=== PATIENT | male | born 1950 | race Caucasian/White ===

== ENCOUNTER → 2018-01-30 | Outpatient (CLI) | payer MEDICARE, OTHER ==
[~2018-01-30] MED LIST: ANDROGEL TOP; ASPI-1441 PO; ASPI-715 PO; ATOR10TA24 PO; CALC-1033 PO; CALCIUM PO; CHOL10005 PO; FAM20 PO; GLUC-304 PO; GLUCOSAMINE PO; GUAI600T57 PO; IBU600 PO; LEV500 PO; LOR5/325 PO; MECL-111 PO; MELA1TAB9 PO; MELA3TAB31 PO; MULT1CAP59 PO; OMEG10007 PO; OMEP-218 PO; OMEPRAZOLE PO; PHENA200 PO; POTA99TA6 PO; TEST2.5G6 TD; TUMS PO; VITAMIN C PO; VITAMIN E PO; [UNRECOGNIZED DRUG - OTHER] PO
[2018-01-30 09:48] LABS: INR 1.02
--- NOTE | 2018-01-31 14:35 | RADIOLOGY IMAGING REPORT ---
FACILITY: [facility] PATIENT NAME: ORION FARNSWORTH : [id number] MR: [id number] V: [id number] EXAM DATE: [id number] ORDERING PHYSICIAN: BULL BURRIS TECHNOLOGIST: Louisa Marino PROCEDURE:US LEFT BREAST COMPLETE COMPARISON:None. INDICATIONS:LEFT BREAST LUMP FINDINGS: In the approximate 3 o'clock position of the Left breast there is a large irregular spiculated hypoechoic mass measuring approximately 2.9 x 3 x 2.1cm with acoustic shadowing. This mass is extremely concerning for malignancy. In the Left axilla there are fatty replacements, node and additional abnormal appearing lymph node lacking a fatty hilum and measures 1.3 x 1.4 x 0.9cm. DIAGNOSTIC CATEGORY 5--HIGHLY SUGGESTIVE OF MALIGNANCY. RECOMMENDATIONS: ULTRASOUND-GUIDED CORE BIOPSY: LEFT BREAST. IMPRESSION: BIRADS 5: Highly suggestive of malignancy Ultrasound guided core biopsy will be performed today of the large heterogeneous spiculated mass 3 o'clock position Left breast and the abnormal appearing Left axillary lymph node will also be sampled at that time. Dictated by: Kate Figueroa M.D. on 01/30/2018 at 17:00 Transcribed by: JOLLY on 01/31/2018 at 8:54 Approved by: Kate Figueroa M.D. on 01/31/2018 at 14:33 [facility]
--- NOTE | 2018-01-31 14:35 | RADIOLOGY IMAGING REPORT ---
FACILITY: [facility] PATIENT NAME: ORION FARNSWORTH : [id number] MR: [id number] V: [id number] EXAM DATE: [id number] ORDERING PHYSICIAN: BULL BURRIS TECHNOLOGIST: Louisa Marino PROCEDURE: ULTRASOUND GUIDED CORE BIOPSY LEFT BREAST MASS AND BIOPSY OF A LEFT AXILLARY LYMPH NODE. COMPARISON: None. INDICATIONS: abnormal Left breast mass FINDINGS: Informed consent was obtained. The patient's Left breast was prepped and draped in the usual sterile fashion. Local anesthesia was accomplished with 1% lidocaine. Under sonographic guidance three 12 gauge core biopsies were obtained through the irregular hypoechoic mass in the 3 o'clock position of the Left breast. A biopsy clip was placed in the biopsy site. The samples were placed in formalin shown to the patient and sent to the Laboratory for evaluation. The Left axilla was then prepped and draped in the usual sterile fashion. Local anesthesia was accomplished with 1% lidocaine. Three 16 gauge core biopsies were obtained through the abnormal appearing hypoechoic lymph node in the Left axilla. The samples were placed in formalin shown to the patient and sent to the Laboratory for evaluation. A biopsy clip was placed in the biopsy site. The procedures were accomplished without apparent complication. IMPRESSION: 1. Successful sonographically guided biopsy of the large Left breast mass 3 o'clock position. 2. Successful sonographically guided biopsy of the abnormal appearing Left axillary lymph node. 3. Pathology results are pending. Dictated by: Kate Figueroa M.D. on 01/30/2018 at 17:06 Transcribed by: JOLLY on 01/31/2018 at 13:39 Approved by: Kate Figueroa M.D. on 01/31/2018 at 14:34 [facility]
--- NOTE | 2018-01-31 14:35 | RADIOLOGY IMAGING REPORT ---
FACILITY: [facility] - [place], [place] PATIENT NAME: ORION FARNSWORTH : [id number] MR: [id number] V: [id number] EXAM DATE: [id number] ORDERING PHYSICIAN: BULL BURRIS TECHNOLOGIST: Xiao Borjas PROCEDURE:BILATERAL DIAGNOSTIC DIGITAL MAMMOGRAM WITH CAD ASSISTED INTERPRETATION & THE 3D TOMOSYNTHESIS WAS NOT PERFORMED. COMPARISON:None. INDICATIONS:Breast Mass FINDINGS: In the approximate 3 o'clock position Left breast there is a large irregular spiculated mass with fibrotic stranding toward the chest wall and the areola. This corresponds to a large irregular hypoechoic mass seen in the 3 o'clock position on Today's Left breast Ultrasound. Ultrasound guided core biopsy will be performed. This mass is extremely concerning for malignancy. DIAGNOSTIC CATEGORY 5--HIGHLY SUGGESTIVE OF MALIGNANCY. RECOMMENDATIONS: ULTRASOUND-GUIDED CORE BIOPSY: LEFT BREAST. IMPRESSION: BIRADS 5: Highly suggestive of malignancy Ultrasound guided core biopsy will be performed of the irregular hypoechoic mass 3 o'clock position Left breast. The Ultrasound also demonstrated an abnormal appearing lymph node on the Left axilla which will be sampled at the same time. Dictated by: Kate Figueroa M.D. on 01/30/2018 at 17:04 Transcribed by: JOLLY on 01/31/2018 at 9:02 Approved by: Kate Figueroa M.D. on 01/31/2018 at 14:34 [facility]
== END ==
LOC: MAMO 01-25 14:57
PROVIDERS: ATTEND Surgery
DX: C50.922 Malignant neoplasm of unspecified site of left male breast (principal); C77.3 Secondary and unspecified malignant neoplasm of axilla and upper limb lymph nodes; Z17.0 Estrogen receptor positive status [ER+]
CPT/HCPCS: 19083; 36415; 77062; 77065; 77066; 85610; 88305; 88344

== ENCOUNTER → 2018-02-06 | Outpatient (CLI) | payer MEDICARE, OTHER | LOC: LAB 12:03 | PROVIDERS: ATTEND Surgery | DX: K21.9 Gastro-esophageal reflux disease without esophagitis (principal) | CPT/HCPCS: 36415; 82565 ==

== ENCOUNTER → 2018-02-06 | Outpatient (CLI) | payer MEDICARE, OTHER ==
[~2018-02-06] MED LIST changes: +IOPAMIDOL 76% 75 ML INFUS BTL 75 ML ONE
--- NOTE | 2018-02-06 17:18 | RADIOLOGY IMAGING REPORT ---
FACILITY: [facility] PATIENT NAME: Fausto Brown : 1950 MR: [id number] V: [id number] EXAM DATE: ORDERING PHYSICIAN: BULL BURRIS TECHNOLOGIST: Location: [facility] [place] Patient: Fausto Brown : 1950 Visit/Account:[id number] Date of Sevice: 02/06/2018 CHEST/AB/PELV W/CONTRAST HISTORY: Breast cancer. TECHNIQUE: CT chest, abdomen and pelvis with intravenous contrast. One of the following dose optimization techniques was utilized in the performance of this exam: Autom ated exposure control; adjustment of the mA and/or kV according to the patient's size; or use of an i terative reconstruction technique. Specific details can be referenced in the facility's radiology C T exam operational policy. CONTRAST: 75 mL Isovue-370 IV COMPARISON: CT abdomen/pelvis 03/01/2013 FINDINGS: CHEST: Heart/vessels: At least moderately severe coronary atherosclerosis with most notable involvement of left anterior descending and right coronary arteries. Mediastinum: Negative. Lymph nodes: Prominent but morphologically unremarkable left axillary lymph node measuring 0.9 x 2.3 cm (series 2/image 42) with what may be a biopsy marking clip along its lateral margin. No other ad enopathy. Lungs/pleura: 2 mm noncalcified nodule posterior right lower lobe (series 6/image 189). Mild subseg mental atelectasis versus versus scarring within the basilar aspects of each lower lobe. No infiltra te. No pleural fluid. Bones/soft tissues: Within the retroareolar left breast is a 2.4 x 3.0 x 3.1 cm ovoid soft tissue ma ss. Within the inferolateral aspects of this mass is a punctate calcification versus biopsy marking clip. Superiorly, this mass extends to become inseparable from the nipple and/or skin surface. Mild right gynecomastia. Subtle asymmetric lucency of the right relative to left inferior sternum measur ing approximately 0.9 x 1.6 cm (series 2/image 67). Similarly subtle 1.0 x 1.3 cm lucency within the right posterior T3 vertebral body. ABDOMEN/PELVIS: Hepatobiliary: Gallbladder surgically absent. Liver unremarkable. Spleen: Negative. Adrenals: Negative. Pancreas: Negative. Kidneys/: Simple fluid attenuating cortical lesion lower pole left kidney consistent with cyst. P rostate borderline enlarged. GI: Mild sigmoid diverticulosis. Vessels/spaces/nodes: Mild atherosclerosis. Bones/soft tissues: Mild degenerative changes lumbosacral junction. No suspicious lytic or blastic osseous lesion. IMPRESSION: 1. 2.4 x 3.0 x 3.1 cm retroareolar left breast mass consistent with patient's reported history of br east malignancy. 2. Prominent but morphologically unremarkable 0.9 x 2.3 cm left axillary lymph node and with an ace cent biopsy marking clip. Correlation with pathology results from tissue sampling 01/31/2018 recommen ded. 3. Subtle lucencies of the inferior sternum and T3 vertebral body, most likely vertebral body karime ioma and external hemangioma versus normal trabecular variation respectively but warranting further e valuation. Consider further evaluation with whole-body bone scan. 4. Noncalcified 2 mm right lower lobe pulmonary nodule, indeterminate and warranting continued CT fo llow-up. Report Dictated By: Michael Chowdary MD at 02/06/2018 4:55 PM Report E-Signed By: Michael Chowdary MD at 02/06/2018 5:14 PM WSN:[id number]
== END ==
LOC: CT 15:42
PROVIDERS: ATTEND Surgery
DX: C50.922 Malignant neoplasm of unspecified site of left male breast (principal); R91.8 Other nonspecific abnormal finding of lung field; Z90.49 Acquired absence of other specified parts of digestive tract
CPT/HCPCS: 71260; 74177; Q9967

== ENCOUNTER 2018-02-08 01:44 | Observation (INO) | payer MEDICARE, OTHER ==
[~2018-02-08] VITALS: Ht 188 cm; Wt 90.3 kg
[2018-02-08] VITALS (11 sets, daily range): BP systolic 102–142; BP diastolic 61–100
[~2018-02-08 01:44] MED LIST changes: -IOPAMIDOL 76% 75 ML INFUS BTL 75 ML ONE
[2018-02-08] MEDS ORDERED: fentaNYL CITR 250 MCG/5 ML AMP ONE (10:38)
[2018-02-08] MEDS ORDERED: PROPOFOL EMUL(*) 10MG/ML 20 ML 20 ML ONE (10:39)
[2018-02-08] MEDS ORDERED: LIDOCAINE 2% IV 100 MG/5ML SYR ONE (10:39)
[2018-02-08] MEDS: FAMOTIDINE 20 MG TAB PO ONE ×2 (11:02→11:23)
[2018-02-08 11:08] LABS: PLATELET COUNT, AUTOMATED 263 K/uL (150-450)
[2018-02-08] MEDS ORDERED: NORMOSOL R SOLN(*) 1000 ML BAG 1,000 ML IV PRN (11:30)
[2018-02-08] MEDS ORDERED: VANCOMYCIN 1 GM ADDVIAL 1 GM in NS(*) 0.9% 250 ML ADDVAN BAG 250 ML IVPB ONE (11:30)
[2018-02-08] MEDS ORDERED: LIDOCAINE/SOD BICARB 8.4% SYR ID ONE (11:30)
[2018-02-08] MEDS ORDERED: MIDAZOLAM 2 MG/2 ML VIAL IVP ONE (11:30)
[2018-02-08] MEDS ORDERED: HEPARIN SOD LCK FLSH 100 UN/ML ONE ×2 (11:39→11:52)
[2018-02-08] MEDS ORDERED: ROPIVACAINE 0.5% 20 ML VIAL ONE (11:39)
[2018-02-08] MEDS ORDERED: NS(*) 0.9% 10 ML VIAL 20 ML ONE (11:39)
[2018-02-08] MEDS ORDERED: ISOSULFAN BLUE 1% SLN 50MG/5ML ONE (11:39)
[2018-02-08] MEDS ORDERED: fentaNYL CITR 100 MCG/2 ML AMP ONE ×3 (13:26→16:18)
[2018-02-08] MEDS ORDERED: HYDROmorphone HCL 2 MG/ML SDV ONE (13:30)
[2018-02-08] MEDS ORDERED: NS(*) 0.9% 1000 ML BAG 1,000 ML IV PRN (15:44)
[2018-02-08] MEDS ORDERED: MORPHINE 2 MG/ML SYR IVP PRN (15:45)
[2018-02-08] MEDS ORDERED: NALOXONE HCL 0.4 MG/ML VIAL IVP PRN (15:45)
[2018-02-08] MEDS ORDERED: ONDANSETRON 4 MG/2 ML VIAL IVP PRN (15:45)
[2018-02-08] MEDS ORDERED: FLUSH 10 ML SYR IVP PRN (15:45)
--- NOTE | 2018-02-08 16:06 | Post Operative Progress Note ---
Post Operative Progress Note Date: Feb 08, 2018 Time: 15:55 Surgeon: Albert Dictation number: [id number] Anesthesia: GETA by Dr. Buchanan Pre-Op Diagnosis: Left Breast Cancer with met to left axillary LN Post-Op Diagnosis: GRAZYNA Findings: C/W dx Procedure(s): 1) Right IJ Power Port placement 2) Left MRM Specimen Removed:(May be N/A): Left breast and axillary contents, en bloc Complications: None Fluids: See anesthesia record Estimated Blood Loss: Minimal Date OP Note Dictated: Feb 08, 2018 Time OP Note Dictated: 15:56 BULL BURRIS MD Feb 08, 2018 16:06
[2018-02-08] MEDS ORDERED: PROMETHAZINE 25 MG/ML 1 ML AMP ONE (16:07)
--- NOTE | 2018-02-08 16:33 | RADIOLOGY IMAGING REPORT ---
FACILITY: [facility] PATIENT NAME: Fausto Brown : 1950 MR: [id number] V: [id number] EXAM DATE: ORDERING PHYSICIAN: BULL BURRIS TECHNOLOGIST: Location: [facility] Patient: Fausto Brown : 1950 Visit/Account:[id number] Date of Sevice: 02/08/2018 C-ARM FLUORO PORT/CATH, CHEST SINGLE AP INDICATION: CHEMOPORT PLACEMENT COMPARISON: None available FINDINGS: Heart size within normal limits. There is a right-sided Mediport in place with catheter tip near the atrial caval junction. Surgical drains overlie the left chest wall with underlying mastectomy changes. The lungs are clear. There is no pneumothorax or pleural effusion. IMPRESSION: 1. No evidence of consolidation or pneumothorax Report Dictated By: Justin Dickey at 02/08/2018 4:17 PM Report E-Signed By: Justin Dickey at 02/08/2018 4:30 PM WSN:[id number]
--- NOTE | 2018-02-08 16:33 | RADIOLOGY IMAGING REPORT ---
FACILITY: [facility] PATIENT NAME: Fausto Brown : 1950 MR: [id number] V: [id number] EXAM DATE: ORDERING PHYSICIAN: BULL BURRIS TECHNOLOGIST: Location: [facility] [place] Patient: Fausto Brown : 1950 Visit/Account:[id number] Date of Sevice: 02/08/2018 C-ARM FLUORO PORT/CATH, CHEST SINGLE AP INDICATION: CHEMOPORT PLACEMENT COMPARISON: None available FINDINGS: Heart size within normal limits. There is a right-sided Mediport in place with catheter tip near the atrial caval junction. Surgical drains overlie the left chest wall with underlying mastectomy changes. The lungs are clear. There is no pneumothorax or pleural effusion. IMPRESSION: 1. No evidence of consolidation or pneumothorax Report Dictated By: Justin Dickey at 02/08/2018 4:17 PM Report E-Signed By: Justin Dickey at 02/08/2018 4:30 PM WSN:[email or web address]
--- NOTE | 2018-02-08 19:21 | OPERATIVE REPORT 1 ---
EVENT DATE: February 08, 2018 SURGEON: Joseph Price MD ANESTHESIOLOGIST: Lawson Buchanan MD ANESTHESIA: General endotracheal anesthesia. PREOPERATIVE DIAGNOSIS Left breast cancer with metastatic cancer to an axillary lymph node. POSTOPERATIVE DIAGNOSIS Left breast cancer with metastatic cancer to an axillary lymph node. PROCEDURES PERFORMED 1. Right internal jugular vein PowerPort placement. 2. Left modified radical mastectomy. COMPLICATIONS None. CONDITION Stable. BLOOD LOSS Minimal. SPECIMENS Left breast and axillary contents en bloc, short stitch on the superior margin, long suture on the axillary contents laterally. DRAINS Two 10 mm flat Ibrahima-Johnson drains were in left in place, one in the axilla and the other over the pectoralis muscle. INDICATIONS This is a 67-year-old gentleman who presented to my office with a left breast lump. There was overlying skin dimpling. This was very concerning for a neoplasm. I obtained a mammogram, an ultrasound, and a biopsy of it which revealed a poorly differentiated left breast cancer, but ER/AK positive. They also found an enlarged lymph node in his left axilla which was biopsied and revealed metastatic breast cancer to the lymph node. I saw the patient back and discussed options with him, and he provided consent for a left modified radical mastectomy and a PowerPort placement. DESCRIPTION OF PROCEDURE The patient was brought to the operating room and placed supine on the operating table. General endotracheal anesthesia was administered, and his right shoulder, chest, and neck were prepped and draped in a sterile fashion. A timeout was completed, and the patient was put in Trendelenburg. I used an ultrasound probe and identified the right internal jugular vein. I accessed the vein with an access needle and then threaded the wire through the needle, and the wire threaded without any problems. The needle was removed, and I used a C-arm fluoroscope to ensure that the wire was in the SVC. There was no cardiac ectopy. I then marked the skin and anesthetized the skin at the stab incision in the neck as well as in the right infraclavicular skin. I then made an incision in the infraclavicular skin and made a pocket caudad to this incision and made sure this was hemostatic. I made a stab incision in the neck. I then used the tunneler and dragged the catheter from the pocket up into the stab incision in the neck and then threaded a dilator and sheath over the wire with the patient in Trendelenburg. I then removed the wire and dilator. I threaded the catheter through the sheath, and I removed the sheath. I then used the C-arm fluoroscope to position the catheter in the SVC just above the right atrium, then cut it to length, placed the port on the catheter, and locked it in place with a locking cup. The port was secured to the underlying muscle fascia with 3-0 nylon at the corners, and then I aspirated blood through the port and catheter. I then flushed it 10 mL of normal saline and 5 mL of 100 units/mL of heparinized saline. I aspirated and flushed with no problems. I then took more C-arm images to confirm that it was in good position, and it was. I then closed the skin at the port site with interrupted 3-0 Vicryl deep dermal sutures and 4-0 Monocryl running subcuticular sutures. I placed a single 3-0 chromic suture in the stab incision in the neck. The skin was cleaned and dried, and I placed Steri-Strips over each of the incisions. All the drapes were then taken down. He was positioned appropriately on the table, and his left chest, shoulder, and arm were then prepped and draped in a sterile fashion. Another timeout was completed, and then I marked the skin to include the nipple-areolar complex as well as the skin dimple, and then I anesthetized the skin and the entire area that I marked with 0.5% ropivacaine plain. I then made a large elliptical incision where I marked the skin to encompass the nipple-areolar complex and then dissected through the dermis and then the subcutaneous tissues. I then created subcutaneous flaps all the way up to the clavicle medial to the sternum , down to the superior portion of the abdominal rectus muscles, and then lateral to the beyond the lateral edge of the pectoralis muscle. I identified the muscle fascial medially and peeled the muscle fascia off of the pectoralis major muscle. I raised the breast from the underlying muscle from medial to lateral. There was no gross extension of tumor into the muscle fascia or beyond the muscle fascia. When I got up into the axillary contents, I continued my dissection down deep, and I identified the axillary vein and also identified the thoracodorsal and long thoracic nerves. I peeled the axillary contents away from the latissimus muscle while preserving the nerves. When this was completed, the wound was hemostatic, and the nerves were preserved. I tested each one of them by gently pinching them with forceps and watched the serratus anterior and the latissimus dorsi muscles contract with stimulation of the nerves. I then irrigated and dried the wounds and placed two 10 mm flat Ibrahima-Johnson drains, the lateral one going up into the left axilla and the medial one going up over the pectoralis muscle. I then closed the skin with interrupted deep dermal 3-0 Vicryl sutures and 4-0 Monocryl running subcuticular sutures. The skin was cleaned and dried, and Steri-Strips were applied, followed by a sterile surgical dressing and drain dressings. The patient was awakened and extubated in the operating room and transported to the recovery room in stable condition having tolerated all the procedures without any apparent problems. JOSS
[2018-02-08] MEDS ORDERED: PATIENT'S OWN MED PO SCH (21:00)
[2018-02-08] MEDS: DOCUSATE SODIUM 100 MG CAP PO SCH (21:13)
[2018-02-08] MEDS: FAMOTIDINE 20 MG TAB PO SCH (21:13)
[2018-02-09 00:01] VITALS: BP 102/70
[2018-02-09 04:12] VITALS: BP 103/69
[2018-02-09 07:24] VITALS: BP 118/66
[2018-02-09] MEDS: DOCUSATE SODIUM 100 MG CAP PO SCH (08:19)
[2018-02-09] MEDS: FAMOTIDINE 20 MG TAB PO SCH (08:20)
[2018-02-09] MEDS ORDERED: DOCU-202 PO (08:47)
[2018-02-09] MEDS ORDERED: PER PO (08:47)
--- NOTE | 2018-02-09 08:51 | Short(Outpt) Discharge Summary ---
Discharge Summary Reason for Hosp/Final Diag: (1) Cancer of left male breast Status: Chronic Hospital Course & Plan: 02/09/18: POD#1 s/p left MRM. Doing well. Will d/c to home. Departure Discharge to: Home, Self Care Discharge Instructions Home Meds Active Scripts Oxycodone/Acetaminophen (OXYCODONE/ACETAMINOPHEN 5MG/325 MG) 5 Mg/325 Mg Tab, 1- 2 TAB PO Q4H Y for MODERATE PAIN, #30 TAB 0 Refills Prov:BULL BURRIS MD 02/09/18 Docusate Sodium (DOCUSATE SODIUM) 100 Mg Capsule, 1 CAP PO BID, #30 CAPSULE 0 Refills Prov:BULL BURRIS MD 02/09/18 Reported Medications Atorvastatin Calcium (LIPITOR) 10 Mg Tablet, 0.5 TAB PO QODAY, TAB 02/06/18 Melatonin/Pyridoxine HCl (B6) (Melatonin 3 mg Tablet) 1 Each Tablet, 1 TAB PO HS 02/06/18 Potassium Gluconate (POTASSIUM) 99 Mg Tablet, 99 MG PO QDAY 02/06/18 [ideal protein diet] No Conflict Check, 1 OPAL PO QDAY 02/06/18 Calc/D3/Mag/Zn/Senior Nuclear Medicine Technologist/Christophe/[place] (CALCIUM 600 MG PLUS VIT D TAB) 1 Each Tablet, 1 EACH PO QDAY 02/06/18 Glucosam & Chondroit-Mv & Min3 (GLUCOTEN CAPLET) 1 Each Tablet, 1 EACH PO QDAY 02/06/18 Cholecalciferol (Vitamin D3) (VITAMIN D3) 1,000 Unit Tablet, 1000 UNIT PO QDAY, TAB 02/06/18 [place]-3/Dha/Epa/Fish Oil (Fish Oil 1,000 mg Softgel) 1,000 Mg (120 Mg-180 Mg) Capsule, 1 TAB PO QDAY 02/06/18 Multivitamin (MULTIVITAMINS) 1 Each Capsule, 1 EACH PO QDAY, CAPSULE 02/06/18 Guaifenesin (MUCINEX) 600 Mg Tablet.er, 600 MG PO QDAY 02/06/18 Testosterone (Androgel) 2.5 Gm Gel.packet, 1 OPAL TD DAILY, 0 Refills 12/06/10 Discontinued Reported Medications Aspirin (Aspirin) 81 Mg Tablet.dr, 81 MG PO DAILY, 0 Refills 12/06/10 Omeprazole Magnesium (Prilosec Otc) 20 Mg Tablet.dr, 20 MG PO QDAY, 0 Refills 12/06/10 Meclizine Hcl (Meclizine Hcl) 25 Mg Tab.chew, 25 MG PO Q6H Y, 0 Refills May take every six hours as needed. 12/06/10 Follow up Referrals: General Surgery - 02/21/18 @ Surgery, General with Bull Burris Md You have a follow up appointment scheduled with Dr. Burris on 02/21/18, at 3: 15pm. Diet: Regular Activity: As Tolerated Special Instructions: You may remove the white surgical dressings on 02/10/18, then you can shower. After showering, you can leave the incisions open to air but leave the steristrips in place until they fall off on their own. Place new drain dressings around the drains. Do not immerse the incisions for 2 weeks. Empty the drains at least twice each day, more often if needed, and record how much you empty and bring in the drain log to your follow up appointment. Avoid any activity that involves raising your left arm above shoulder height or moving your left arm behind your back. Avoid having blood pressure cuffs, IVs, or blood draws on your left arm for the rest of your life. Problem Qualifiers (1) Cancer of left male breast : Breast location: upper outer quadrant of breast Estrogen receptor status: positive Qualified Codes: C50.422 - Malignant neoplasm of upper-outer quadrant of left male breast; Z17.0 - Estrogen receptor positive status [ER+] BULL BURRIS MD Feb 09, 2018 08:51
[2018-02-09] MEDS ORDERED: ASPIRIN 81 MG ENTERIC COATED PO SCH (09:00)
[2018-02-09] MEDS ORDERED: POTASSIUM GLUCONATE 99 MG TAB PO SCH (09:00)
[2018-02-09] MEDS ORDERED: MULTIVITAMINS TAB PO SCH (09:00)
[2018-02-09] MEDS ORDERED: GLUCOSAMINE-CHONDROITIN CAP PO SCH (09:00)
[2018-02-09] MEDS ORDERED: CHOLECALCIFEROL 1000 UNIT TAB PO SCH (09:00)
[2018-02-09] MEDS ORDERED: PATIENT'S OWN MED PO SCH (09:00)
[2018-02-09] MEDS ORDERED: TESTOSTERONE TP SCH (09:00)
[2018-02-09] MEDS ORDERED: guaiFENesin 600 MG TABCR PO SCH (09:00)
[2018-02-09] MEDS ORDERED: CALCIUM CARBONATE/VITAMIN D3 PO SCH (09:00)
[2018-02-09] MEDS ORDERED: OMEGA-3 500 MG CAP PO SCH (09:00)
[2018-02-10] MEDS ORDERED: ATORVASTATIN 10 MG TAB PO SCH (09:00)
== END 2018-02-09 08:45 | disposition home or self-care (01) ==
LOC: OR 01:44 → MED 17:15 → INTOOBSV 17:15
PROVIDERS: ADMIT Surgery; ATTEND Surgery
DX: C50.922 Malignant neoplasm of unspecified site of left male breast (principal); C77.3 Secondary and unspecified malignant neoplasm of axilla and upper limb lymph nodes
CPT/HCPCS: 19307; 36415; 36561; 71045; 77001; 85025; 88309; 88344; A9270; C1788; G0378; J1170; J1642; J2001; J2550; J2704; J2795; J3010; J3370; J7050; Q9968

== ENCOUNTER → 2018-03-21 | Outpatient (CLI) | payer MEDICARE, OTHER ==
[~2018-03-21] MED LIST changes: +ASPI81TA94 PO; +DOCU-202 PO; +PER PO; +SULF-198 PO
== END ==
LOC: LAB 16:07
PROVIDERS: ATTEND Surgery
DX: T81.4XXA Infection following a procedure, initial encounter (principal); B95.8 Unspecified staphylococcus as the cause of diseases classified elsewhere
CPT/HCPCS: 87070; 87073

== ENCOUNTER → 2018-03-22 | Outpatient (CLI) | payer MEDICARE, OTHER ==
--- NOTE | 2018-03-22 13:03 | EKG ---
FACILITY: [facility] PATIENT NAME: ORION FARNSWORTH : [id number] MR: [id number] V: [id number] EXAM DATE: ORDERING PHYSICIAN: ESTEBAN TUTTLE TECHNOLOGIST: Fuentes Hart Reason : Blood Pressure : / mmHG Vent. Rate : 058 BPM Atrial Rate : 058 BPM P-R Int : 174 ms QRS Dur : 076 ms QT Int : 448 ms P-R-T Axes : 020 033 -03 degrees QTc Int : 439 ms Sinus bradycardia Possible left atrial enlargement Question previous septal infarct (Q waves in V1-2) Abnormal ECG No previous ECGs available Confirmed by YVONNE CRUZ ([id number]) on 03/22/2018 4:46:34 PM Referred By: Confirmed By:YVONNE CRUZ
--- NOTE | 2018-03-24 06:38 | RADIOLOGY IMAGING REPORT ---
FACILITY: [facility] PATIENT NAME: ORION FARNSWORTH : [id number] MR: [id number] V: [id number] EXAM DATE: ORDERING PHYSICIAN: ESTEBAN TUTTLE TECHNOLOGIST: Louisa Marino EXAMINATION:TWO-DIMENSIONAL ECHOCARDIOGRAPH REASON: 2D Measurements (normal values in centimeters) LV endLV endRV endVent.LV PostAorticLeftPercent DiastolicSystolicDiastolicSeptumWallRootAtriumShortening (3.5-5.7)(0.9-2.6)(0.6-1.1)(0.6-1.1)(2.0-3.7)(1.9-4.0)(25-35%) 4.83.1 [id number]% STROKE VOLUME: 72 ml ESTIMATED EJECTION FRACTION:66% PARASTERNAL LONG AXIS: Overall left ventricular function appears to be normal and chamber size appears to be normal. Right ventricle may be borderline enlarged. The aortic valve and mitral valve both appear to open normally. Color examination valves reveal a trace of insufficiency of the mitral and tricuspid valve. The right ventricle appears to contract normally. PARASTERNAL SHORT AXIS: Again overall left ventricular function appears to be normal no specific wall motion abnormalities are noted. The aortic valve leaking configuration appears to open normally and has a trace of pulmonic insufficiency as well as a trace to borderline mild amount of tricuspid insufficiency. APICAL FOUR AND TWO CHAMBER: Normal left ventricular ejection fraction. Aortic valve area and mitral valve area both measure within normal ranges at 2.6cm squared 2.9cm squared respectfully. Tricuspid regurgitation VMAX was measured at 1.91m/s with an estimated pressure of 3mm/hg. Left atrial volume is mildly increased to 31mil/m squared right atrial volume is also mildly increased at 31mil/m squared. The was measured at 1.9. That is within normal ranges. SUBCOSTAL VIEW: No pericardial effusion was noted. No atrial septal or ventricular septal defects we noted. Definity contrast was used no wall motion abnormalities are noted. We were unable to get accurate STRAIN measurements. OVERALL IMPRESSION: 1. Normal left ventricular ejection fraction of 65% with a grade 1 mild diastolic function. 2. Normal chamber size of the right ventricle media. The left atrial and right atrial volumes are mildly increased 31mil/m squared respectfully. The right ventricular function also appears to be normal with a normal measurement. 3. There is a trace of mitral and tricuspid insufficiency with no other valvular abnormalities noted. The estimated right ventricular systolic pressure within normal ranges of 18mm/hg. Dictated by: Vivian Echevarria M.D. on 03/23/2018 at 14:40 Transcribed by: MICHOACANO on 03/23/2018 at 17:53 Approved by: Vivian Echevarria M.D. on 03/24/2018 at 6:36 [facility]
== END ==
LOC: US 11:22
PROVIDERS: ATTEND Internal Medicine Medical Oncology
DX: R00.1 Bradycardia, unspecified (principal); R94.31 Abnormal electrocardiogram [ECG] [EKG]; I50.30 Unspecified diastolic (congestive) heart failure; I51.7 Cardiomegaly; I34.0 Nonrheumatic mitral (valve) insufficiency; I07.1 Rheumatic tricuspid insufficiency
CPT/HCPCS: 93005; 93306

== ENCOUNTER 2018-04-10 13:23 | Outpatient (RCR) | payer MEDICARE, OTHER ==
[~2018-04-10 13:23] MED LIST changes: +LORA-1455 PO; +ONDA4TAB PO; +PROC10TA4 PO; +[UNRECOGNIZED DRUG - CODE] IV; +[UNRECOGNIZED DRUG - CODE] IV; +[UNRECOGNIZED DRUG - CODE] SQ
[2018-07-11] MEDS ORDERED: POTA-1 PO (09:25)
[2018-07-11] MEDS ORDERED: NYST15PO4 TP (09:25)
== END 2018-07-08 ==
LOC: RAON 13:23
PROVIDERS: ATTEND Radiology Radiation Oncology
DX: C50.922 Malignant neoplasm of unspecified site of left male breast (principal); E78.00 Pure hypercholesterolemia, unspecified
CPT/HCPCS: 99202; 99212

== ENCOUNTER 2018-06-07 08:46 | Outpatient (RCR) | payer MEDICARE, OTHER ==
[2018-03-14 09:03] VITALS: BP 122/72
[2018-03-14] MEDS: HEPARIN FLSH (PORT) 500 UN/5ML IVP PRN (10:00)
[2018-03-14] MEDS: LIDOCAINE/SOD BICARB 8.4% SYR ID PRN (10:00)
--- NOTE | 2018-03-14 17:04 | ONCOLOGY HISTORY AND PHYSICAL ---
CHIEF COMPLAINT March 14, 2018 REFERRING PROVIDER Joseph Price MD REASON FOR CONSULTATION Left breast cancer. CHIEF COMPLAINT Numbness of skin over surgical incision. HISTORY OF PRESENT ILLNESS Mr. Brown is a very pleasant 68-year-old gentleman with a history of hypercholesterolemia and a family history of breast cancer, who presents at the request of Dr. Price for evaluation of recently diagnosed and resected breast cancer. To review. the patient had been in his usual state of health until recently, when he noted a palpable lump in the left breast. He also noted some changes of the nipple, and that it had "felt itchy." He sought medical attention, and underwent a bilateral diagnostic mammogram on January 30. The mammogram revealed a large irregular spiculated mass with fibrotic stranding toward the chest wall and areola. Ultrasound performed on the same day had revealed a mass in this position, as well. Ultrasound-guided core biopsy was recommended. This was performed, along with a biopsy of a left axillary lymph node. Pathology from the biopsies revealed a poorly differentiated infiltrating ductal carcinoma of both the left breast mass and left axillary lymph node. The patient was seen in consultation by Dr. Price, and he underwent left mastectomy, left axillary lymph node dissection, and placement of a port. Of note, the patient had undergone a CT scan of the chest, abdomen and pelvis on February 06, and this had revealed a 2.4 x 3.0 x 3.1 cm retroareolar left breast mass; prominent, but morphologically unremarkable left axillary lymph node measuring 0.9 x 2.3 cm, as well subtle lucencies of the inferior sternum and the T3 vertebral body. A 2 mm right lower lobe pulmonary nodule was incidentally noted. The patient's surgical pathology has revealed a 3.5 cm poorly differentiated ductal carcinoma (grade 3), with negative margins (0.2 cm at deep margin), two of six sampled lymph nodes were positive for metastatic tumor. The tumor is positive for both the estrogen and progesterone receptors, strongly. HER2 by IHC was 1+, not overexpressed. Ki-67 was quite elevated at 42.3. The patient did well with his surgery, and he eventually had his drains removed. Today, the patient reports that he is feeling back to his baseline. He does have some numbness around incisions of the left chest and axilla. He has been trying to keep his left shoulder as mobile as possible. He reports a good appetite, but he had altered his diet recently to try to lose some weight. He reports no abdominal pain or changes in bowel habits. He has had no recent urinary symptoms that have changed. He reports no focal neurologic symptoms. REVIEW OF SYSTEMS Otherwise negative, and all systems are reviewed. CURRENT MEDICATIONS 1. Docusate p.r.n. 2. Atorvastatin. 3. Melatonin. 4. Calcium/D3/magnesium/zinc/copper/manganese/boron supplement. 5. Glucosamine chondroitin. 6. Vitamin D3 supplement. 7. Baby aspirin daily. 8. Prilosec. 9. [place]-3 fish oil. 10. Multivitamin. 11. AndroGel supplementation. ALLERGIES AUGMENTIN, which had previously caused dramatic abnormalities of his liver function tests. 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 He does not smoke. There is no history of illicit drug use. He has one or two alcoholic beverages per day. FAMILY HISTORY His mother was diagnosed with breast cancer at age 50-55. He has a younger brother, as well as two sons and a daughter that are otherwise healthy. VITAL SIGNS Temperature 96.9, blood pressure 122/72, heart rate is 79, respirations 16, oxygen saturation is 99% on room air. Weight is 94.9 kg. PHYSICAL EXAMINATION GENERAL: Patient is alert and oriented times three in no apparent distress sitting in the exam room chair. He appears healthy. He is interactive and quite pleasant. HEENT: Exam reveals anicteric sclerae. SKIN: Exam reveals a healing mastectomy incision with some very modest underlying and nontender induration and some mild fluctuance under the left arm. There is no palpable lymphadenopathy. NEUROLOGIC: Exam is grossly nonfocal and his gait is normal. EXTREMITIES: Exam reveals no edema, clubbing or cyanosis. There is no erythema or tenderness to palpation of the extremities. LABORATORY DATA Reviewed her the [facility]. IMAGING AND PATHOLOGY See history of present illness. 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 I had a good visit with Mr. Brown and his today. We spent a good deal of time discussing his presenting symptoms, as well as his management to date. We discussed the results of his initial mammogram and ultrasound, as well as initial biopsy results. We also discussed his recent mastectomy, his recovery, and surgical pathology. We discussed the high grade nature of this ER positive male breast cancer, and the concerning findings to include in addition the two of six lymph nodes that were positive for metastatic carcinoma. At this point, his clinical stage is IIB, but there are some questionable findings on his recent CT scan in the sternum, thoracic vertebrae, as well as a very small pulmonary micronodule. As discussed, I am skeptical that these represent metastatic disease, but I do think that they require more evaluation. I have recommended that he undergo a CT PET scan. This will be scheduled as soon as possible. He does not have any focal neurologic symptoms at this time, and we will forego an MRI of the brain, as discussed. We moved on to discuss the different modalities of treatment for male patients with breast cancer. He has undergone the most important part of his treatment with surgical resection. At this time, I am skeptical that he will require radiation therapy, as there are no positive margins. He has had a port placed, and I would agree that with the presentation, adjuvant chemotherapy will be in order. We did discuss chemotherapy conceptually today, and he has no known cardiac history. Because of the hormone receptor positivity of this tumor, we will plan for him to receive adjuvant endocrine therapy when chemotherapy is complete. I have asked that patient give permission for his case to be presented at our upcoming Breast Tumor Board at the [facility]. This will take place next Monday. At that time, we will discuss optimum adjuvant chemotherapy for him to receive. I will plan to see him back after the Tumor Board so we can discuss recommendations and made definitive plans for adjuvant therapy. This follow-up visit will take place either here at the [facility] , or at my [place] clinic. As discussed, if there are surprising findings on his upcoming CT-PET scan to suggest the possibility of bony metastatic disease in the sternum and/or thoracic vertebrae, we will need to discuss things in a different light, as this would likely change his stage to stage IV, and we would be discussing more palliative maneuvers for his treatment. The patient and his had several additional insightful and appropriate questions for me today, and I believe I answered all of their questions to their satisfaction. Thank you very much, Dr. Price, for allowing me to take part in the care of this delightful patient. Please do not hesitate to call with questions or concerns. I spent a total of one hour of time [id number] with the patient, and 55 minutes of this was spent in direct counseling and coordination of care. JOSS
[2018-03-28 12:03] VITALS: BP 120/77
--- NOTE | 2018-03-28 19:15 | ONCOLOGY FOLLOW UP NOTE ---
EVENT DATE: March 28, 2018 REASON FOR FOLLOWUP Stage IIB ER positive invasive ductal carcinoma of left breast. INTERIM HISTORY Mr. Brown is here for followup today. Since our last visit, he has undergone a CT PET scan, and he has also been briefly on Bactrim for concerns for a postop wound infection. He reports that in general he feels pretty good. He has had some ongoing modest fatigue. He reports no new pain. He denies fever. He has had a good appetite and his weight has been stable. He has had no abdominal pain, nausea, or changes in bowel habits. He otherwise has no significant complaints, and he is here to review the results of his CT PET scan, as well as recommendations made at the Breast Multidisciplinary Conference at the [facility]. REVIEW OF SYSTEMS Otherwise negative, and all systems were reviewed. CURRENT MEDICATIONS 1. Bactrim. 2. Omeprazole. 3. Baby aspirin. 4. Docusate p.r.n. 5. Atorvastatin. 6. Melatonin/pyredoxine. 7. Calcium/D3/magnesium/zinc/copper/manganese/boron supplement. 8. Glucosamine chondroitin, and vitamin D3. 9. Fish oil supplement. 10. Multivitamin. 11. AndroGel. ALLERGIES AUGMENTIN, which had previously caused dramatic abnormalities of his liver function tests. 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 He does not smoke. There is no history of illicit drug use. He has one or two alcoholic beverages per day. FAMILY HISTORY His mother was diagnosed with breast cancer at age 50-55. He has a younger brother, as well as two sons and a daughter that are otherwise healthy. VITAL SIGNS Temperature 97.5, blood pressure 120/77, heart rate is 66, respirations 16, oxygen saturation is 97% on room air. Weight is 95 kg. PHYSICAL EXAMINATION GENERAL: Patient is alert and oriented times three in no apparent distress sitting in the exam room chair. He appears quite healthy. He is interactive and pleasant. HEENT: Exam reveals anicteric sclerae. NEUROLOGIC: Exam is grossly nonfocal and his gait is normal. EXTREMITIES: Exam reveals no edema, clubbing or cyanosis. SKIN: Cursory exam reveals no rash or concerning lesion. LABORATORY DATA Reviewed per the [employer] record. IMAGING 1. Echocardiogram was performed on March 22, 2018. This revealed an ejection fraction of 66% with overall left ventricular function and chamber size appearing to be normal. Right ventricle may be borderline enlarged. The aortic valve and mitral valve both appear to open normally. Right ventricle appears to contact normally. There is a trace of mitral and tricuspid insufficiency. 2. CT PET scan performed on February 21 reveals postoperative left chest wall seroma extending into the axilla and associated inflammatory changes from mastectomy/axillary lymph node dissection. There is no evidence of metastatic disease. There is moderate right gynecomastia. ASSESSMENT AND PLAN I had a very good visit with Mr. Brown and his today. We spent time discussing the results of his recent imaging studies, to include echocardiogram that was basically normal. We also discussed his CT PET scan which shows no evidence of hypermetabolic metastatic disease. He was happy to hear this. We moved on to discuss recommendations made at the breast multidisciplinary conference in [place]. Recommendation at this time is for him to move forward with dose dense adriamycin and cyclophosphamide for four cycles, followed by weekly Taxol for 12 doses. We spent a good deal of time today discussing common toxicities with this regimen, but he will need to undergo a chemotherapy education. We also discussed that the tumor board has recommended a reevaluation of the HER2 status, given the high grade nature of the breast cancer. As discussed today this is pending. We will need to follow up on this , because if there is HER2 over-expression, we will want to add Herceptin, starting when he receives his weekly Taxol. We also discussed the recommendation for adjuvant radiation therapy given his positive lymph nodes, and after radiation is complete, we will likely move forward with five years' worth of adjuvant tamoxifen. The patient expressed understanding for the plan. He already has a port in place. I would hope for him to get started with adjuvant chemotherapy in the next week or two. Of note, although not discussed today, I think it would be likely a rivera idea for him to discontinue his testosterone supplementation. I would want for this to be reviewed with him at his upcoming chemotherapy education, and if not, I will discuss with him further at our next follow-up visit together. Patient and his had several additional insightful and appropriate questions for me today, and I believe I answered all their questions to their satisfaction. I will see him back in about one month at the time of my return to my [facility] clinic. I spent a total of 45 minutes of time face to face with the patient today, and roughly 40 minutes of this was spent in direct counseling and coordination of care. MTDD
--- NOTE | 2018-04-04 13:20 | Pharmacy Note ---
Pharmacy Note Note: Clinical Pharmacist Note: Chemotherapy Education Visit Date: 03/30/18 Chemotherapy Regimen: Dose Dense AC x 4, followed by weekly Paclitaxel x 12 weeks, Pegfilgrastim with AC portion The regimen includes doxorubicin, cyclophosphamide, pegfilgrastim given every 14 days x 4 cycles, followed by paclitaxel given weekly x 12 weeks. The schedule of treatment administration was explained in detail to the patient in regards to lab visits, timing and sequence of premedications and chemotherapy , followed by any supportive medications to be given. Discussed the purpose of the port and why we administer chemotherapy through a port. Port placed prior to chemo ed appointment. Patient's diagnosis, treatment plan, and intent of treatment along with goals are outlined on the signed consent form, that was reviewed and signed at the end of this appointment. The goal is curative treatment (recovery from disease) . The potential for drug/drug interaction and drug/food interactions were explained to the patient. We did discuss the risks of continuing testoterone replacement therapy with a hormone sensitive breast cancer and the patient reports that he has not been taking testosterone for a few months now and he will not restart it. I recommend that he revisit this with Dr. Brooks at his next appointment as well. Patient was instructed to report any new medications to the office. A medication reconciliation was reviewed by the pharmacist today. We reviewed and discussed toxicities of supportive care medications and how to appropriately use supportive medications including the schedule of anti- emetics. These medications include the following: Take home medications: dexamethasone, ondansetron, prochlorperazine Pre-medications: fosaprepitant, palonosetron, dexamethasone, diphenhydramine, famotidine Supportive Medications: pegfilgrastim We have also discussed the potential for long and short term side effects of chemotherapy including, but not limited to the side effects outlined below: -Low WBCs or neutropenia: Patient may experience bone marrow toxicity that would increase their risk for infection. Patient is aware to look for signs and symptoms of infection (e.g. fever of higher than 100.4F, chills, sore throat , etc.) and knows what number to call and when to contact the clinic. Advised patient of things they can do such as wash hands with soap and water often, avoid people who are sick, and avoid crowds during times of low blood counts ( typically 7-10 days post chemotherapy). Discussed the need for pegfilgrastim with dose dense AC to reduce the risk of neutropenia. - Low RBCs or anemia: Anemia is when you don't have enough red blood cells to carry oxygen through your body, which causes fatigue, weakness, lightheadedness , pale skin, SOB, or headaches. Discussed the importance of getting enough restful sleep at night and eating a diet rich in iron. Lab values will be closely monitored to check your RBCs. Advised patient to contact the clinic if they have a fast heart rate, dizziness, or lightheadedness. -Low platelet counts or thrombocytopenia: Patient may experience low platelets which can lead to increased risk of bleeding, easy bruising, black or bloody stools, or small red or purple spots on the skin. Platelets help blood to clot and if your platelets are low enough, bleeding may not stop after a few minutes. Excessive bleeding or bruising, red spots on your skin or new onset headaches require a phone call to the clinic. - Fatigue (feeling tired): Some patients may experience fatigue, or feel tired , weak, low energy, drained or exhausted. You will experience fatigue after chemotherapy, but the amounts for each person and chemotherapy will differ. Advised patient to stay active as much as they can with light exercise, take short naps if needed, get a restful night of sleep, and eat a well-balanced diet. Call the clinic if you are unable to get out of bed or do typical daily activities, have shortness of breath, or have trouble walking small distances. -Nausea or vomiting: Most patients may experience some level of nausea ( feeling queasy or sick to your stomach) or vomiting. Advised patient to take their anti-nausea medications as prescribed, drink plenty of fluids, eat several small meals throughout the day, eat bland easy to digest foods, and speak to our tankage grinder if they have questions. Call the clinic if the nausea or vomiting is not eased by your medications and lasts 12 hours or longer, or if unable to eat or drink, or keep medicines down. - Appetite changes (eating less or more): You may experience a decrease or increase in your appetite that might last a day, weeks or months. Advised patient to set a schedule for eating and drink high protein drinks to maintain calories. Ask your doctor or nurse for a tankage grinder consult to help manage your appetite changes or if you have concerns about your appetite changes. Contact the clinic if you notice a change in weight and if you are unable to take in more than a few bites of food or sips of liquid at mealtimes. Favorite foods may also taste different or may not be pleasing. -Hair loss or alopecia: Hair loss typically begins 2-3 weeks after the first chemotherapy treatment and can range from thinning to full body hair loss, and can occur anywhere on your body. Your hair may come out a little at a time or in clumps and your scalp may feel tender before the hair falls out. In the meantime, you can cut your hair or choose a wig- protect your head and wear sunscreen and mild shampoo and brushes. The hair will usually grow back about 2 -3 months after you finish chemotherapy and may be a different texture or color when it returns. -Mouth sores and oral care (mucositis or stomatitis): Patient was informed that they may experience taste changes, dry mouth, and potential mouth sores due to the chemotherapy. The best way to prevent and treat mouth sores is to do routine mouth care each day. If mouth sores occur, use mouth rinses with baking soada, alst and warm water after meals and before bed (dissolve 2 TBSP of baking soda and 1/2 tsp of salt in 8 oz of warm water--swish and spit). Avoid mouthwashes with alcohol and spicy food if mouth sores exist. If dry mouth occurs, sucking on ice chips or sugar free hard candy can help. -Neuropathy (numbness-pins and needles-tingling): Patient may experience acute and chronic neuropathy that can potentially be irreversible due to the chemotherapy. The patient is advised to report symptoms to the clinic if they experience burning, tingling, and numbness in the hands, feet, face or mouth. -Cardiotoxicity: Patient may experience cardiotoxicity as a result of chemotherapy. LVEF was evaluated at baseline with an echocardiogram on 03/21/18 and LVEF was 66%, prior study was a stress test in 2010 and was 61-64%. Cardiotoxicity risk is increased with an increase in cumulative lifetime dose. Symptoms of cardiotoxicity discussed were shortness of breath and edema. Cardiotoxicity may manifest acutely or late within treatment to months or years after completion. -Sexual and Reproductive Health: There is an increased risk of chemotherapy exposure to your partner when you are on chemo. When sexually active, wear a protective barrier while on chemotherapy. It is important to use control measures while on chemotherapy. Ask your provider when it might be safe again to try for . If you are , consult with your provider to determine if it is safe to breastfeed. -Infertility: Risk for infertility secondary to chemotherapy was screened at today's appointment. Infertility was briefly discussed and was of no concern to the patient at this time. -Hepatotoxicity: There is a risk of toxicity to your liver. Your lab work will be watched closely to determine if this is occurring and any required dose adjustments will be made at that time. -Secondary Malignancies: There is a risk of secondary malignancies such as acute myelogenous leukemia (AML) and myelodysplastic syndromes (MDS) in patients that are treated with anthracyclines and typically occurs within 1-3 years of treatment. -Skin Problems: Some patients may experience a variety of symptoms including: rash, dry/cracked skin, red/inflammed skin, brittle/cracked/yellow nails, red/ blistering skin near the areas of radiation, sunburn easily, and itching. Advised patient that they can moisturize their skin daily, use sunscreen, use mild soaps when washing the skin and to avoid products with perfumes, dyes, or alcohol. Regarding fingernails specifically, patient is advised to keep their nails short and trimmed. -Arthralgias: Patients may experience arthralgias and joint pain while on chemotherapy. Patients are encouraged to maintain physical activity and to utilize acetaminophen if they encounter joint pain. With regard to pegfilgrastim induced bone pain/arthralgias, loratadine 10mg po daily is recommended for 5-7 days post injection of pegfilgrastim. -Discoloration of body fluids: Patients may notice discoloration of tears and urine while receiving doxorubicin. Alerted patient to the fact that they may notice tear and body fluid discoloration of red to pink for 1-3 days following doxorubicin. Reinforced that it is not of concern and should be expected. -Extravasation: The patient is receiving a vesicant as part of their chemotherapy regimen. While the risk of extravasation with a port is very low, there is still a risk. Discussed what a vesicant is and that extravasation of a vesicant can lead to severe local tissue injury and necrosis requiring surgical intervention and possible skin grafting. Patient was educated to report any pain or burning at the port site ANNIE. -Other Toxicities: Electrolyte changes, nephrotoxicity, and pulmonary toxicity : Patient will be monitored closely for toxicities listed. Lab work will be reviewed weekly and the patient will be notified with these changes and if there are changes, may need additional follow up and testing. Patient was given the Standard Chemotherapy Education Binder with appropriate phone numbers and we reviewed symptoms that would prompt a call to the clinic. Upcoming appointments were discussed and patient knows to follow up at the front office agent to get print outs of their schedule and the processes to change/ cancel an appointment. Consent was reviewed with the patient and signed in my presence. The treating physician will review and sign the consent. Allergies were reviewed: Augmentin caused marked elevation of transaminases. At the end of this discussion, the patient and his verbalized understanding of the provided education and information and all of their questions were answered to their satisfaction. Patient and his know how to reach me if further questions or concerns come up. Time spent with the patient: 180 minutes, with all 180 minutes being spent counseling on the detailed information above. Suzanne Singh, PharmD, BCOP SUZANNE SINGH March 30, 2018 16:52
[2018-04-06 09:02] VITALS: BP 135/76
[2018-04-06] MEDS: LIDOCAINE/SOD BICARB 8.4% SYR ID PRN (09:34)
[2018-04-06] MEDS: NS(*) 0.9% 500 ML BAG 500 ML IV PRN (09:35)
[2018-04-06] MEDS: PALONOSETRON 0.25 MG/5 ML VIAL IVP PRN (10:05)
[2018-04-06] MEDS: DEXAMETHASONE SOD PHOS 10MG/ML IVP PRN (10:05)
[2018-04-06] MEDS: FOSAPREPITANT DIM 150 MG/5 ML 150 MG in NS(*) 0.9% 250 ML BAG 245 ML IVPB PRN (10:25)
[2018-04-06 11:38] VITALS: BP 115/79
[2018-04-06] MEDS: HEPARIN FLSH (PORT) 500 UN/5ML IVP PRN (12:15)
--- NOTE | 2018-04-06 15:37 | Medical Nutrition Therapy ---
Nutrition Anthropometrics Height (Inches): 74 (pt stated ht) Height (Calculated Centimeters: 188.5950 Weight (Pounds): 208 (pt stated wt, usual wt 201-202 lbs) Hx Weight Loss: Yes (pt states he has used [place] Protein diet in the past 2 years, lost 30 lbs) Dietary Referral Nutrition/Food History No Significant Nutr. HX pt states he eats 3 meals/day, no eating problems Good Nutritional Diagnosis Nutritional Risk Acuity 3: Cancer (Breast Cancer, with chemotherapy ) Nutritional Acuity: 3-Mild Energy Requirement: 2700 Protein Requirement: 90 Fluid Requirement: 2300 Nutritional Education Nutrition Education Topic: Other (nutrition during cancer treatment ) Learning Readiness: Eager Teaching Methods: Discussion, Handout Response to Teaching: Verbalize understanding Teaching Recipient: Patient, Family ( present ) Nutrition Counseling: Provided handout on Eating Tips: Before, During and After Cancer Treatment Reviewed nutrition impact symptoms that maybe experienced with treatment Pt and had questions regarding what to eat, encouraged healthy food choices Nutrition Monitoring & Eval Nutritional Goals Comment: Continue to eat 3 meals/day as tolerated, if intake decreases pt was encouraged to eat smaller more frequent meals, encouraged to drink >2liters/day Nutrition Monitoring: Monitor nutrition status and nutrition impact symptoms as treatment progresses, will provide additional nutrition information as needed RD Patient Assessment Time: [address] Assessment Type: RD Education Patient Nutrition Acuity: 3-Mild Follow Up Date: April 19, 2018 Nutritional Comment: 04/06/18 - provided 15 min - MNT for cancer treatment Copies To Copies to: ESTEBAN TUTTLE MD, PAULA RDN, FELIPA April 06, 2018 14:47
[2018-04-07 12:17] VITALS: BP 113/69
[2018-04-13 09:15] VITALS: BP 114/71
[2018-04-13 09:27] LABS: PLATELET COUNT, AUTOMATED 137 K/uL (150-450)
[2018-04-18 08:30] VITALS: BP 116/67
--- NOTE | 2018-04-18 17:41 | ONCOLOGY FOLLOW UP NOTE ---
EVENT DATE: April 18, 2018 REASON FOR FOLLOWUP Stage IIB ER positive invasive ductal carcinoma of left breast. INTERIM HISTORY Mr. Brown is here for followup today. He is accompanied by his . Since our last visit, he has started adjuvant chemotherapy with dose-dense adriamycin and cyclophosphamide. He reports that chemotherapy was less toxic in general, than he had expected it to be. He does report some issues with fatigue, especially in the first week of the cycle. He has also had some constipation. MiraLax and other agents at home have been helpful in this regard, and he thinks he is getting a better handle on it. He reports no new pain today, although he has had some ongoing musculoskeletal pain. He continues to work with Physical Therapy. He has visited with Nutrition. He has also visited with Pamela Flower MS, Genetic Counselor, at the [facility] in [facility]. Blood has been drawn for genetic testing, and results are pending. In general, Fausto believes that things are going pretty well. REVIEW OF SYSTEMS Otherwise negative, and all systems were reviewed. CURRENT MEDICATIONS 1. Ativan p.r.n. 2. Zofran p.r.n. 3. Compazine p.r.n. 4. Prilosec OTC. 5. Docusate p.r.n. 6. MiraLax p.r.n. 7. Lipitor. 8. Multivitamin. 9. Glucosamine chondroitin. 10. Vitamin D3. 11. [place]-3 fish oil. ALLERGIES AUGMENTIN. 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 He does not smoke. There is no history of illicit drug use. He has one or two alcoholic beverages per day. FAMILY HISTORY His mother was diagnosed with breast cancer at age 50-55. He has a younger brother, as well as two sons and a daughter that are otherwise healthy. VITAL SIGNS Temperature 97.1, blood pressure 116/67, heart rate is 75, respirations 16, oxygen saturation is 95% on room air. Weight is 97.25 kg. PHYSICAL EXAMINATION GENERAL: Patient is alert and oriented times three in no apparent distress sitting in the exam room chair. He appears healthy, and in good spirits. He is quite interactive and pleasant. HEENT: Exam reveals anicteric sclerae. NEUROLOGIC: Exam is grossly nonfocal and his gait is normal. HEART: Exam reveals a regular rate and rhythm. LUNGS: Clear to auscultation bilaterally. EXTREMITIES: Exam reveals no edema, clubbing or cyanosis. SKIN: Exam reveals no concerning rash or lesion. LABORATORY DATA Reviewed per the [facility] record. IMAGING None today. PATHOLOGY As reviewed today, FISH for HER2 has returned not amplified. ASSESSMENT AND PLAN Stage IIB ER positive invasive ductal carcinoma of left breast. I had a lengthy and in depth discussion with Mr. Brown today. He has initiated adjuvant chemotherapy with dose-dense adriamycin and cyclophosphamide. In general, he has tolerated his first cycle remarkably well. He has had some expected toxicity in the form of fatigue, but nausea has been minimal. He has had some modest taste changes. He has no signs or symptoms to suggest concern for decreased heart function. We spent time today reviewing additional pathology results, to include HER2 status of his tumor, which is not overexpressed. We discussed that Herceptin will therefore not be a part of his adjuvant treatment strategy. We also spent time discussing general expectations for side effects and toxicity with ongoing chemotherapy. We discussed how these chemotherapy/ treatment regimens are assembled and optimized over time with the use of data from clinical research, and many other topics. I am happy with how Mr. Brown is doing, and we will have him continue with chemotherapy per protocol. I will plan to see him back in one month's time here in my [facility] clinic, but if he is having particular problems during his second cycle, I would be more than happy to see him in my [place] clinic, as discussed. The patient and his had multiple additional questions for me today, and I believe I answered all their questions to their satisfaction. I spent a total of 30 minutes of [id number] time with the patient today, and 25 minutes of this was spent in direct counseling and coordination of care. JOSS
[2018-04-19 09:31] VITALS: BP 109/74
[2018-04-19] MEDS: LIDOCAINE/SOD BICARB 8.4% SYR ID PRN (09:34)
[2018-04-19] MEDS: HEPARIN FLSH (PORT) 500 UN/5ML IVP PRN (09:34)
[2018-04-19] MEDS: NS(*) 0.9% 500 ML BAG 500 ML IV PRN (09:34)
[2018-04-19] MEDS: DEXAMETHASONE SOD PHOS 10MG/ML IVP PRN (10:06)
[2018-04-19] MEDS: PALONOSETRON 0.25 MG/5 ML VIAL IVP PRN (10:06)
[2018-04-19] MEDS: FOSAPREPITANT DIM 150 MG/5 ML 150 MG in NS(*) 0.9% 250 ML BAG 245 ML IVPB PRN (10:39)
--- NOTE | 2018-04-19 17:10 | Medical Nutrition Therapy ---
Nutrition Anthropometrics Height (Inches): 74.00 Height (Calculated Centimeters: 187.9600 Weight (Pounds): 211 (no significant change) Kashif Nutrition Score: Kashif Nutrition Risk Score: Dietary Referral Nutrition Risk Factors: Nutrition Risk Comment: Nutrition/Food History issues with constipation which has resolved Good (food tastes bland ) Nutritional Education Nutrition Education Topic: Other (provided information on oral care and refreshing beverages ) Learning Readiness: Interested Teaching Methods: Discussion, Handout Response to Teaching: Verbalize understanding Teaching Recipient: Patient, Family ( ) Nutrition Counseling: patient has questions regarding fresh fruits and vegetables - I will check with Suzanne Cain's recommendations and follow up with the patient Nutrition Monitoring & Eval Nutrition Follow-Up: Good Intake Nutrition Monitoring: I will continue to monitor nutrition impact symptoms and provide nutrition information as needed RD Patient Assessment Time: 15 minutes (less than 15 minutes ) RD Assessment Type: RD Education Patient Nutrition Acuity: 3-Mild Nutritional Comment: provided less than 15 minutes - MNT Education follow up for cancer treatment BRANDON ROJAS RDN, FELIPA April 19, 2018 17:10
[2018-04-26 09:33] VITALS: BP 133/75
[2018-04-26 10:18] LABS: PLATELET COUNT, AUTOMATED 208 K/uL (150-450)
[2018-05-03 09:30] VITALS: BP 122/71
[2018-05-03] MEDS: LIDOCAINE/SOD BICARB 8.4% SYR ID PRN (09:33)
[2018-05-03] MEDS: NS(*) 0.9% 500 ML BAG 500 ML IV PRN (09:34)
[2018-05-03] MEDS: DEXAMETHASONE SOD PHOS 10MG/ML IVP PRN (10:39)
[2018-05-03] MEDS: PALONOSETRON 0.25 MG/5 ML VIAL IVP PRN (10:39)
[2018-05-03] MEDS: FOSAPREPITANT DIM 150 MG/5 ML 150 MG in NS(*) 0.9% 250 ML BAG 245 ML IVPB PRN (11:03)
--- NOTE | 2018-05-03 13:33 | Medical Nutrition Therapy ---
Nutrition Monitoring & Eval Nutrition Follow-Up: Good Intake Nutrition Monitoring: Monitoring nutrition impact symptoms, no complaints of Nausea/Vomiting, no complaints of Constipation/Diarrhea, he is taking miraLAX daily to manage constipation. Pt states he is able to eat normal foods, normal amounts, he does state that some food tastes are slightly bland/dull. His wt is stable and activity is normal with a few days of fatigue after treatment. RD Patient Assessment Time: 15 minutes (less than 15 minutes ) RD Assessment Type: RD Re-Assessment Patient Nutrition Acuity: 3-Mild Nutritional Comment: spent less than 15 min with patient - MNT for cancer treatment BRANDON ROJAS RDN, FELIPA May 03, 2018 12:51
[2018-05-03 13:50] VITALS: BP 130/76
[2018-05-03] MEDS: HEPARIN FLSH (PORT) 500 UN/5ML IVP PRN (15:50)
[2018-05-04 12:33] VITALS: BP 123/72
[2018-05-08 09:27] VITALS: BP 113/63
--- NOTE | 2018-05-08 23:25 | ONCOLOGY FOLLOW UP NOTE ---
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 INTERIM HISTORY Mr. Brown returns to clinic for a followup visit today. He is accompanied by his . He had completed three cycles of adjuvant dose-dense AC. He reports expected side effects of chemotherapy, but they have been tolerable. He has had some issues with constipation, but he is working on this with medications and hydrations at home. He reports no diarrhea. He denies any pain. His appetite has been fair. His weight has been stable. He does report expected fatigue. He has had no fever. He states that his skin at times gets somewhat "blotchy," possibly related to steroids. He understands that genetic testing has returned, and he does plan to visit with the genetic counselor in [place] to discuss these results soon. REVIEW OF SYSTEMS Otherwise negative in all systems reviewed. CURRENT MEDICATIONS 1. Ativan p.r.n. 2. Zofran p.r.n. 3. Compazine p.r.n. 4. Prilosec OTC. 5. Docusate p.r.n. 6. MiraLax p.r.n. 7. Lipitor. 8. Multivitamin. 9. Glucosamine chondroitin. 10. Vitamin D3. 11. [place]-3 fish oil. ALLERGIES AUGMENTIN. 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 He does not smoke. There is no history of illicit drug use. He has one or two alcoholic beverages per day. FAMILY HISTORY His mother was diagnosed with breast cancer at age 50-55. He has a younger brother, as well as two sons and a daughter that are otherwise healthy. PHYSICAL EXAMINATION VITAL SIGNS: Temperature is 97.1, blood pressure 113/63, heart rate is 100, respirations 16, oxygen saturation is 93% on room air. Weight is 96.2 kg. GENERAL: The patient is alert and oriented times three, no apparent distress, sitting in the exam room chair. HEENT: Diffuse alopecia and anicteric sclerae. NEUROLOGIC: Grossly nonfocal, and his gait is normal. EXTREMITIES: No edema, clubbing, or cyanosis. SKIN: No concerning rash or lesions. LABORATORY STUDIES Reviewed per the [facility] record. IMAGING None today. ASSESSMENT AND PLAN Stage IIB, estrogen receptor positive invasive ductal carcinoma of left breast. I had a good visit with Fausto and his today. He continues to tolerate adjuvant chemotherapy remarkably well. He does have some expected, but modest toxicity that he is managing well at home. We spent time today discussing the plan for ongoing chemotherapy. He will complete his fourth cycle of adjuvant Adriamycin and cyclophosphamide and then move on to weekly Taxol. He feels prepared for this. We moved on also to discuss the results of his genetic testing. 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 There is a potential increased risk for male breast cancer and prostate cancer with this mutation, and I do want him to discuss this further with Pamela Flower, Genetic Counselor in [place]. He certainly plans to do so. At this point, I am not making any definitive changes to his adjuvant therapy management. I am very happy with how he is doing. I will plan to see him back for a followup the next time I am here in [place] at my [facility] oncology clinic. The patient had several additional questions for me today, and I believe I answered all of his questions to his satisfaction. I spent a total of 30 minutes of time [id number] with the patient and his , and 25 minutes of this was spent in direct counseling and coordination of care. JOSS
[2018-05-10 09:35] VITALS: BP 103/66
[2018-05-10 09:48] LABS: PLATELET COUNT, AUTOMATED 193 K/uL (150-450)
[2018-05-17 09:08] VITALS: BP 114/67
[2018-05-17] MEDS: LIDOCAINE/SOD BICARB 8.4% SYR ID PRN (09:17)
[2018-05-17] MEDS: HEPARIN FLSH (PORT) 500 UN/5ML IVP PRN (09:17)
[2018-05-17] MEDS: NS(*) 0.9% 500 ML BAG 500 ML IV PRN (09:18)
[2018-05-17] MEDS: PALONOSETRON 0.25 MG/5 ML VIAL IVP PRN (09:52)
[2018-05-17] MEDS: DEXAMETHASONE SOD PHOS 10MG/ML IVP PRN (09:53)
[2018-05-17] MEDS: FOSAPREPITANT DIM 150 MG/5 ML 150 MG in NS(*) 0.9% 250 ML BAG 245 ML IVPB PRN (10:14)
[2018-05-17 12:34] VITALS: BP 109/63
[2018-05-18 12:29] VITALS: BP 122/71
[2018-05-22 10:37] VITALS: BP 101/64
--- NOTE | 2018-05-23 04:30 | ONCOLOGY FOLLOW UP NOTE ---
EVENT DATE: May 22, 2018 REASON FOR FOLLOWUP Stage IIB, ER-positive invasive ductal carcinoma of left breast, ongoing adjuvant chemotherapy. INTERIM HISTORY Mr. Brown returns to clinic for a followup visit today. He is accompanied by his . Since our last visit, he has completed adjuvant AC chemotherapy. He is planning to start adjuvant weekly Taxol on May 31, 2018. He reports some ongoing fatigue, but otherwise he tends to feel pretty good. His appetite has been fair. Nausea has been minimal. He reports no recent changes in bowel habits, but he has been dealing with constipation at home. He does have some urinary frequency, but this has not changed. REVIEW OF SYSTEMS Otherwise negative, and all systems are reviewed. CURRENT MEDICATIONS 1. Ativan p.r.n. 2. Zofran p.r.n. 3. Compazine p.r.n. 4. Prilosec OTC. 5. Docusate p.r.n. 6. MiraLAX p.r.n. 7. Lipitor. 8. Multivitamin. 9. Glucosamine chondroitin. 10. Vitamin D3. 11. [place]-3 fish oil. ALLERGIES AUGMENTIN. 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 He does not smoke. There is no history of illicit drug use. He has one or two alcoholic beverages per day. FAMILY HISTORY His mother was diagnosed with breast cancer at age 50-55. He has a younger brother, as well as two sons and a daughter that are otherwise healthy. VITAL SIGNS Temperature is 98.8, blood pressure 101/64, heart rate 79, respirations 16, oxygen saturation is 95% on room air. PHYSICAL EXAMINATION GENERAL: The patient is alert and oriented x three, in no apparent distress, sitting in the exam room chair. HEENT: Anicteric sclerae. NEUROLOGIC: Grossly nonfocal, and his gait is normal. EXTREMITIES: Exam reveals no concerning rash or lesion. There is no edema, clubbing, or cyanosis. LABORATORY DATA Laboratory studies are reviewed per the [facility] record. IMAGING None today. ASSESSMENT AND PLAN Stage IIB, yvxpjwky-[id number] invasive ductal carcinoma of left breast. Fausto continues to do remarkably well with adjuvant chemotherapy. He has completed four cycles of AC, and he will now move on to weekly Taxol for 12 infusions. The patient did have several insightful and appropriate questions about his moving forward with weekly Taxol. I believe I answered all of these questions to his satisfaction. We spent time reviewing his labs today, as well. These are certainly reasonable to continue with chemotherapy. I am very happy with how he is doing, and I will plan to see him back in clinic during my next visit to [facility]. JOSS
[2018-05-31] MEDS: LIDOCAINE/SOD BICARB 8.4% SYR ID PRN (13:22)
[2018-05-31] MEDS: NS(*) 0.9% 500 ML BAG 500 ML IV PRN (13:22)
[2018-05-31 13:34] VITALS: BP 106/67
[2018-05-31] MEDS: FAMOTIDINE 10 MG/ML SDV IVP PRN (14:01)
[2018-05-31] MEDS: DEXAMETHASONE SOD PHOS 10MG/ML IVP PRN (14:03)
[2018-05-31] MEDS: diphenhydrAMINE 50 MG/ML VIAL IVP PRN (14:20)
[2018-05-31 15:54] VITALS: BP 118/81
[2018-05-31] MEDS: HEPARIN FLSH (PORT) 500 UN/5ML IVP PRN (16:08)
--- NOTE | 2018-05-31 17:11 | Oncology Progress Note ---
History of Present Illness Evaluation Evaluation Date: May 31, 2018 Evaluation Time: 14:00 Primary Care Provider Primary Care Provider: Bull Burris MD Accompanied by Accompanied by: Last seen by : Cecilia 05/22/2018 Chief Complaint Chief Complaint Week 1 of 12 Paclitaxel today Oncology History Oncology History 03/14/2018 Mr. Brown has history of hypercholesterolemia and a family history of breast cancer, who presents at the request of Dr. Burris for evaluation of recently diagnosed and resected breast cancer. To review. the patient had been in his usual state of health until recently, when he noted a palpable lump in the left breast. He also noted some changes of the nipple, and that it had "felt itchy. " He sought medical attention, and underwent a bilateral diagnostic mammogram on January 30. The mammogram revealed a large irregular spiculated mass with fibrotic stranding toward the chest wall and areola. Ultrasound performed on the same day had revealed a mass in this position, as well. Ultrasound-guided core biopsy was recommended. This was performed, along with a biopsy of a left axillary lymph node. Pathology from the biopsies revealed a poorly differentiated infiltrating ductal carcinoma of both the left breast mass and left axillary lymph node. The patient was seen in consultation by Dr. Burris, and he underwent left mastectomy, left axillary lymph node dissection, and placement of a port. Of note, the patient had undergone a CT scan of the chest , abdomen and pelvis on February 06, and this had revealed a 2.4 x 3.0 x 3.1 cm retroareolar left breast mass; prominent, but morphologically unremarkable left axillary lymph node measuring 0.9 x 2.3 cm, as well subtle lucencies of the inferior sternum and the T3 vertebral body. A 2 mm right lower lobe pulmonary nodule was incidentally noted. The patient's surgical pathology has revealed a 3.5 cm poorly differentiated ductal carcinoma (grade 3), with negative margins ( 0.2 cm at deep margin), two of six sampled lymph nodes were positive for metastatic tumor. The tumor is positive for both the estrogen and progesterone receptors, strongly. HER2 by IHC was 1+, not overexpressed. Ki-67 was quite elevated at 42.3. The patient did well with his surgery, and he eventually had his drains removed. - Feb 08, 2018 Left Breast mastectomy Cancer with met to left axillary LN - 03/22/2018 Sinus bradycardia Possible left atrial enlargement Question previous septal infarct (Q waves in V1-2) Abnormal ECG No previous ECGs available Confirmed by YVONNE CRUZ ([id number]) on 03/22/2018 -04/06/18 Doxorubicin and Cyclophosphamide followed by Neulasta injections. Chemo is to occur every 2 weeks for 4 cycles followed by a change of frequency to 1x/week for 12 weeks. Treatment Treatment 04/06/18 Initiated Doxorubicin and Cyclophosphamide followed by Neulasta injections. Chemo is to occur every 2 weeks for 4 cycles followed by a change of frequency to 05/31/2018 Cycle#1 paclitaxel 1x/week for 12 weeks. HPI HPI Mr. 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 s/p left breast mastectomy, he has completed adjuvant AC chemotherapy. Planning to start adjuvant weekly Taxol on May 31, 2018. . Patient presents to the cancer center today for he is cycle one of paclitaxel. He is accompanied by his . Patient reports being IN his usual state of health. He informs me that he is active and on the go, continues to work. He denies any numbness tightness on left breast surgical site. On Physical exam, L breast surgical site clean dry intact. No limited left shoulder range of motion. cranial nerves 1-12 grossly intact. He reports no changes in appetite, oral intake is good, except minor change in taste buds. patient is hemodynamically stable and denies SOB, cardiac type chest pain, no abdominal pain,no nausea vomiting diarrhea, no constipation, no dark stools, no bruising no night sweats chills no fevers, patient reports no changes in bowel or bladder pattern. Significant PMH of history of hypercholesterolemia; family history of breast cancer; R knee patellofemoral syndrome; and recent L Achilles tendinopathy. Living Conditions Lives with . PMH Patient History: FH: breast cancer MOTHER Social/Occupational History Social History: Social History This is a 68 Yr old White male, he is M and has [] Children Hx Smoking: Yes Smoking Status: Former Smoker Allergies & Medications Allergies: Coded Allergies: amoxicillin (Verified Allergy, Intermediate, ELEVATED LIVER ENZYMES, ) clavulanic acid (Verified Allergy, Intermediate, ELEVATED LIVER ENZYMES, ) Home Meds Active Scripts Docusate Sodium (DOCUSATE SODIUM) 100 Mg Capsule, 1 CAP PO BID, #30 CAPSULE 0 Refills Prov:BULL BURRIS MD 02/09/18 Reported Medications Pegfilgrastim (NEULASTA) 6 Mg/0.6 Ml Disp.syrin, 6 MG SQ Every 2 weeks x 4 cycles - first cycle 04/07/18 04/06/18 Cyclophosphamide (CYCLOPHOSPHAMIDE) 500 Mg Soln, 1330 MG IV 600 mg/m2 every 2 weeks x 4 cycles - cycle 1 04/06/18 04/06/18 Doxorubicin Hcl (DOXORUBICIN HCL) 50 Mg/25 Ml Soln, 133 MG IV 60 mg/m2 every 2 weeks x 4 cycles - cycle 1 on 04/06/18 04/06/18 Lorazepam (ATIVAN) 0.5 Mg Tablet, 0.5 MG PO Q4-6H Y for NAUSEA May take 0.5 to 1 mg every 6 hours 04/06/18 Ondansetron (ZOFRAN ODT) 4 Mg Tab.rapdis, 8 MG PO Q8H Y for NAUSEA, TAB.ARTIE 04/06/18 Prochlorperazine Maleate (Compazine) 10 Mg Tablet, 10 MG PO PRN Y for NAUSEA 04/06/18 Omeprazole Magnesium (PRILOSEC OTC) 20 Mg Tablet.dr, 1 TAB PO QDAY, TAB 03/14/18 Atorvastatin Calcium (LIPITOR) 10 Mg Tablet, 0.5 TAB PO QODAY, TAB 02/06/18 Calc/D3/Mag/Zn/Manager Performance/Christophe/[place] (CALCIUM 600 MG PLUS VIT D TAB) 1 Each Tablet, 1 EACH PO QDAY 02/06/18 Glucosam & Chondroit-Mv & Min3 (GLUCOTEN CAPLET) 1 Each Tablet, 1 EACH PO QDAY 02/06/18 Cholecalciferol (Vitamin D3) (VITAMIN D3) 1,000 Unit Tablet, 1000 UNIT PO QDAY, TAB 02/06/18 [place]-3/Dha/Epa/Fish Oil (Fish Oil 1,000 mg Softgel) 1,000 Mg (120 Mg-180 Mg) Capsule, 1 TAB PO QDAY 02/06/18 Multivitamin (MULTIVITAMINS) 1 Each Capsule, 1 EACH PO QDAY, CAPSULE 02/06/18 Review of Systems Constitution: Denies Appetite/Weight Change, Denies Fever/Chills/Sweating, Denies Recent Infection, Denies Other HEENT: No EARS: Tinnitus, No NOSE: Nasal Discharge, No THROAT: Sore Throat, No EYES: Dipolpia, No EARS: Hearing Problems, No NOSE: Epistaxis, No THROAT: Mouth Ulcers, No EYES: Vision Change, No OTHER Respiratory: No Cough, No Expectoration, No Hemoptysis, No Shortness of Breath , No OTHER Cardiovascular: No Chest Pain, No Orthopnea, No Edema, No Palpitations, No OTHER Gastrointestinal: No Nausea, No Vomitting, No Diarrehea, No Constipation, No Heart Burn, No Swallowing Difficulties, No Abdominal Pain, No Other Gentiourinary: No Hematuria, No Dysuria, No Nocturia, No Other Musculoskeletal: No Muscle Pain, No Joint Pain, No Bone Pain, No Other Hematological: No Bleeding, No Weakness, No Enlarged Lyph Nodes, No Bruising, No Fatigue, No Other Skin: Skin Rash Psychiatric: No Anxiety, No Depression, No Other Vital Signs Vital Signs Temperature: 98.5 Pulse: 79 BP Systolic: 101 BP Diastolic: 64 Respiratory Rate: 16 O2 SAT: 95 O2 Delivery: Height (feet) Height (inches) 74.00 Weight lb: 211 Weight oz: Weight Kg (Onesimo): Pain: 0 ECOG-1 Strenuous physical activity restricted; fully ambulatory and able to carry out light work. Physical Exam General: Looks Stable, Well Developed, Well Nourished, Other (in no acute distress) HEENT: HEAD:Atraumatic, No EYES: Conjuctivitis, No EYES: Icterus, No MOUTH: Mucocitis, No MOUTH: Oral Thrush, No SINUS: Tenderness to Palpation, No Other Neck: Supple, No Cervical Lymphadenopathy, No Subclavicular Lymphadopathy, No Thyromegaly, No Other Lungs: Clear to Auscultation, Percussion Bilaterally Heart: Regular Rate and Rhythm, No Gallops, No Murmurs, No Clicks, No Rubs, No Other Abdomen: Soft and Nontender, No Hepatosplenomegaly, No Masses, No Other Extremities: No Cyanosis, No Clubbing, No Edema, No Other Lymphatics: No Peripheral Lymphadenopathy, No Other Psychiatric: Mood appears normal, Affect appears normal Skin: Skin Rashes (left forearm, minor rash.), No Bruising, No Purpura, No Moist Desquamation, No Dry Desquamation, No Errythema, No Mild Errythema, No Moderate Errythema, No Severe Errythema, No Induration, No Other Breast: No No Masses, No No Nipple Discharge, No No Skin Changes, No Other Assessment and Plan Assessment and Plan Mr. Kevin Lambert is a very pleasant, well versed 68 year old male who has Stage IIB, [id number] invasive ductal carcinoma of left male breast Dx: 01/2018. s/p left breast mastectomy, he has completed adjuvant AC chemotherapy. Planning to start adjuvant weekly Taxol on May 31, 2018. significant PMH of history of hypercholesterolemia; family history of breast cancer; R knee patellofemoral syndrome; and recent L Achilles tendinopathy. DIAGNOSTIC DATA CBC showed WBC of 8.1; hemoglobin 14.2; hematocrit 40.9; platelet count 195; ANC 6.9; chemistry panel completely within normal parameters except for random glucose at 132. 1. Stage IIB, kxfpvlet-hmsptxmf-ycyvfeyn status [ER+] invasive ductal carcinoma of left male breast Dx: 01/2018. Malignant neoplasm of upper-outer quadrant of left male breast Estrogen receptor positive status [ER+], s/p left breast mastectomy. Laboratory results within acceptable parameters, discussed extensively with patient. We will initiate administration of Paclitaxel cycle# 1 today. 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 There is a potential increased risk for male breast cancer and prostate cancer with this mutation, Dr. Brooks recommended discussing Genetic Counselor in [place] with Pamela Flower. 2. Anticipating treatment induced constipation. Patient was instructed to follow a bowel regimen using Colace one tab by mouth twice a day; Senokot 8.6 mg to take 2 tabs by mouth at bedtime; MiraLAX to take 17.5 g 3 times a day; and patient was at educated to back off stool softeners A [place] 3 bowel movements per day. CHRONIC - Hypercholesterolemia well controlled - R knee patellofemoral syndrome; patient is on Physical therapy - L Achilles tendinopathy. well controlled with Physical therapy PLAN #1 proceed with administration of paclitaxel per orders on. WEEKLY LABS CBC,CMP, #2 bowel regimen patient to be able to use Colace, Senokot, MiraLAX, as instructed #3 follow-up with M.D./APAP per protocol #4 Patient may use aloe vera juice for swish and spit, and thorough oral care including instruction on Nutrition packet rinse with baking soda for Ppfx mucositis. #5. patient to call cancer center with any issues or concerns #6 we will monitor chemo induced neuropathy symptoms and assess closely. Education, patient and java designer instructed to go to ER IMMEDIATELY, and or call Clinic if any SOB, fevers, chills, cardiac type chest pain, bleeding, excessive bruising, headaches, blurry vision, and pain unrelieved by medication. Patient and java designer had several additional insightful and appropriate questions especially regarding side effects and I believe I answered all of their questions to their satisfaction. patient and agree with treatment plan. TIME SPENT: 35 minutes 30 > minutes includes but not limited to discussion, counselling and co-ordination~ of care. Discussion with other health care providers, record review, review of lab work, diagnostic tests. Plan discussed extensively with patient. All the questions answered today. Thank you for the opportunity to be involved in the care of Mr. Kevin Lambert Billing Level: Return visit 5 MAN FLORES, ONC May 31, 2018 12:47
[~2018-06-07] VITALS: Ht 188 cm; Wt 96.3 kg
[~2018-06-07 08:46] MED LIST changes: +ALTEPLASE RECOMB 2 MG VIAL IVP PRN; +CYCLOPHOSPHAMIDE IVPB ONE; +DEXTROSE 5%(*) 100 ML BAG 100 ML IVPB PRN; +DOXOrubicin 50 MG/25 ML VIAL IVP ONE; +NS 0.9% IVPB ONE; +NS(*) 0.9% 100 ML BAG 100 ML IVPB PRN; +PACLITAXEL IVPB ONE; +PEGFILGRASTIM 6 MG/0.6 ML SYR SUBQ ONE; +WATER FOR INJ,STERILE 20 ML IVP PRN; +[UNRECOGNIZED DRUG - OTHER] IVPB ONE
[2018-06-07 08:59] VITALS: BP 98/65
[2018-06-07 09:15] VITALS: BP 98/65
[2018-06-07] MEDS: LIDOCAINE/SOD BICARB 8.4% SYR ID PRN (09:16)
[2018-06-07] MEDS: NS(*) 0.9% 500 ML BAG 500 ML IV PRN (09:16)
[2018-06-07] MEDS: FAMOTIDINE 10 MG/ML SDV IVP PRN (09:52)
[2018-06-07] MEDS: DEXAMETHASONE SOD PHOS 10MG/ML IVP PRN (09:54)
[2018-06-07] MEDS ORDERED: NS 0.9% IVPB ONE (10:15)
[2018-06-07] MEDS ORDERED: PACLITAXEL IVPB ONE (10:15)
[2018-06-07] MEDS: diphenhydrAMINE 50 MG/ML VIAL IVP PRN (10:18)
[2018-06-07] MEDS: HEPARIN FLSH (PORT) 500 UN/5ML IVP PRN (12:23)
[2018-06-07 16:41] VITALS: BP 118/75
--- NOTE | 2018-06-07 19:03 | ONCOLOGY FOLLOW UP NOTE ---
EVENT DATE: June 07, 2018 REASON FOR FOLLOWUP Stage IIB, ER-positive invasive ductal carcinoma of left breast, ongoing adjuvant chemotherapy. INTERIM HISTORY Mr. Brown returns to clinic for a follow-up visit today. He is in the Infusion Center preparing to receive his next weekly Taxol infusion. He reports that with his first infusion, things went pretty well in general. The overall negative effect of the Taxol has been less than what he experienced with his initial AC chemotherapy. He reports no fever. His appetite is good, and his weight has been stable. He denies new pain. He has had no shortness of breath , productive cough. His bowel habits have been pretty stable. He reports no new urinary symptoms. He has had a very slight change in sensation in his fingertips, but he reports no numbness or tingling. He has had some irritating watering of the eyes and runny nose related to his chemotherapy. REVIEW OF SYSTEMS Otherwise negative, and all systems are reviewed. CURRENT MEDICATIONS 1. Ativan p.r.n. 2. Zofran p.r.n. 3. Compazine p.r.n. 4. Prilosec OTC. 5. Docusate p.r.n. 6. MiraLAX p.r.n. 7. Lipitor. 8. Multivitamin. 9. Glucosamine chondroitin. 10. Vitamin D3. 11. [place]-3 fish oil. ALLERGIES AUGMENTIN. 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 He does not smoke. There is no history of illicit drug use. He has one or two alcoholic beverages per day. FAMILY HISTORY His mother was diagnosed with breast cancer at age 50-55. He has a younger brother, as well as two sons and a daughter that are otherwise healthy. VITAL SIGNS Temperature is 97.0, blood pressure 98/65, heart rate 80, respirations 16, oxygen saturation is 94% on room air. PHYSICAL EXAMINATION GENERAL: The patient is alert and oriented x3, in no apparent distress, sitting in the exam room chair. He is interactive and quite pleasant. HEENT: Anicteric sclerae. NEUROLOGIC: Grossly nonfocal, and his gait is normal. EXTREMITIES: Exam reveals no edema, clubbing, or cyanosis. SKIN: Exam reveals some faint, small erythematous lesions over the forearms. There are no other concerning lesions or rash. LABORATORY DATA Laboratory studies are reviewed per the [facility] record. ASSESSMENT AND PLAN Stage IIB quaklkdi-oflppjil-hftbpsys invasive ductal carcinoma of left breast. Fausto is doing well. He has initiated weekly paclitaxel infusions. His first week of paclitaxel went quite well, all things considered. He does not have any dose-limiting side effects, and his labs are unremarkable. We spent time today discussing the plan moving forward, which will be for completion of 12 weekly cycles of paclitaxel. We discussed his recent visit with Pamela Flower, Genetic Counselor. He does have a PALB2 mutation, and he has discussed this with his family. He feels well informed about his situation in this regard. His watery eyes and runny nose have been irritating, but manageable. These are associated with the Taxol chemotherapy. Fausto had several additional questions for me today, and I believe I answered all of his questions to his satisfaction. I would want to see him back in the next few weeks during my next visit to [facility]. [facility]
== END 2018-06-11 ==
LOC: ONC 08:46
PROVIDERS: ATTEND Internal Medicine Medical Oncology
DX: Z51.11 Encounter for antineoplastic chemotherapy (principal); C50.922 Malignant neoplasm of unspecified site of left male breast; C77.9 Secondary and unspecified malignant neoplasm of lymph node, unspecified; Z17.0 Estrogen receptor positive status [ER+]
CPT/HCPCS: 36415; 85025; 85027; 96367; 96372; 96375; 96411; 96413; 96415; 97802; G0463; J1100; J1200; J1453; J1642; J2469; J2505; J3490; J7040; J7050; J9000; J9070; J9267; 82040; 82247; 82310; 82374; 82435; 82565; 82947; 84075; 84132; 84155; 84295; 84450; 84460; 84520; 99202; 99212; S0028

== ENCOUNTER → 2018-07-05 | Outpatient (RCR) | payer MEDICARE, OTHER ==
--- NOTE | 2018-04-06 15:29 | PT INITIAL EVALUATION ---
MEDICAL DIAGNOSIS: Breast Cancer TREATMENT DIAGNOSIS: Breast Cancer DATE OF ONSET: 04/06/18 SUBJECTIVE: Fausto is a 68 year-old male presenting to physical therapy following recent diagnosis and surgical intervention for L breast cancer. Pt had a L mastectomy on February 08, 2018, with few axillary lymph nodes excised and 6-8 tested. Pt is to initiate chemotherapy intervention today consisting of Doxorubicin and Cyclophosphamide followed by Neulasta injections. Chemo is to occur every 2 weeks for 4 cycles followed by a change of frequency to 1x/week for 12 weeks. Pt currently reports no pain, but is excited to have physical therapy for several different ailments which he is afraid will worsen with chemotherapy intervention. Pt reports some tightness from the L axilla to the elbow on the posterior medial arm. Additionally pt has a history of R knee patellofemoral syndrome, and recent L Achilles tendinopathy which each bother him with exercise and walking. 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 ROM: UE ROM: Flexion: L 120, R 140, Abd: L 115, R 140, ER: B 80, IR: L T6 level , R T8 level. Strength: UE MMT: Flexion/Ext/Abd: 5/5, ER: L 4+/5, R 5/5, IR: L 5/5, R 4+/5. Elbow: Flexion/Ext: 5/5 Palpation: Pt has slight axillary cording present with likely median or ulnar nerve tension on the L. To be assessed further by PT at a later time Special Tests: Pt has delayed R VMO activation in 06/29 SAQ. Pain and crepitus with knee ext is reduced with medial manual glide, but not with compression alone. Mobility: ECOG Performance Status: Grade 0 Other Objective Findings: FACT-G: PWB: , SWB: , EWB: , FWB: , Total: 107/108 ASSESSMENT: Pt shows signs and symptoms consistent with recent surgical intervention and axillary cording associated with L breast cancer. Physical therapy is indicated to address the above listed impairments as well as to maintain functional status with initiation of chemotherapy intervention and continued oncological care. Short Term Goals In 2 MO pt will maintain a FACT-G score of 80/108 or more for maintenance of well-being with ADL's. In 2 MO pt will improve R Quad VMO activation with SAQ to 10/10 contractions for improved function and mobilty with ambualtion and recreational activities. In 4 MO pt will improve L shoulder ROM to equal to that of the contralateral side for improved function with ADL's. In 4 MO pt will maintain ECOG performance status of grade 1 or less for maintained function with ADL's. In 6 MO pt will maintain a FACT-G score of 80/108 or more for maintenance of well-being with ADL's. Patient's Goals Maintain function with ADL's. PLAN: Patient to be seen for Manual Therapy/STM/MET Strengthening/condition Ice/Heat Range of Motion Spinal Stabilization Ultrasound Stretching Iontophoresis Neuromuscular Re-ed Closed Chain Program Electrical Stim Posture/Body mechanics Gait Trg/Balance Trg Biofeedback Home Exercise Program Mech./Manual Traction Therapeutic Activities Pelvic Floor 1x/Week for 4 Months If you have any questions, comments, or concerns about this report or plan, please contact me at . Thank you, Ladi Carrillo, PT, DPT, CLT MTDD
--- NOTE | 2018-05-24 07:59 | PT PLAN OF CARE ---
Physician: Cliff Brooks MD Patient is being seen: 1-2x/Week Therapist: Ladi Carrillo, PT, DPT, CLT Medical Diagnosis: Breast Cancer Treatment Diagnosis: Breast Cancer Date of Onset: 04/06/18 Date of Initial Evaluation: 04/06/18 Date patient was last seen: 05/22/18 Number of treatments: 11 Number of cancellations/No shows: 0 INTERVENTIONS: Manual Therapy/STM/MET Strengthening/condition Ice/Heat Range of Motion Spinal Stabilization Ultrasound Stretching Iontophoresis Neuromuscular Re-ed Closed Chain Program Electrical Stim Posture/Body mechanics Gait Trg/Balance Trg Biofeedback Home Exercise Program Mech./Manual Traction Therapeutic Activities Pelvic Floor GOALS: In 2 MO pt will maintain a FACT-G score of 80/108 or more for maintenance of well-being with ADL's. MET In 2 MO pt will improve R Quad VMO activation with SAQ to 10/10 contractions for improved function and mobility with ambulation and recreational activities. MET In 4 MO pt will improve L shoulder ROM to equal to that of the contralateral side for improved function with ADL's. MET In 4 MO pt will maintain ECOG performance status of grade 1 or less for maintained function with ADL's. In 6 MO pt will maintain a FACT-G score of 80/108 or more for maintenance of well-being with ADL's. PATIENT'S GOAL: Maintain function with ADL's. Status of Patient's Goals: 3/5 MET, 2/5 In Progress Patient Compliance: Excellent Prognosis: Good Reasons for continuing therapy: Fausto shows great commitment to rehabilitation with improved activity level and strength despite ongoing oncological intervention. Pt shows significantly better patellar tracking with activities and no longer reports knee pain. Pt shoulder mobility is full but remains to have a tight end range with lingering axillary cording. Pt shows improved posture with increased core activation resulting in improved strength and stability with ADL's. Further PT is indicated for this patient to continue with preventative exercise for maintenance of function with ongoing oncological intervention as well as to improve lingering deficits in axillary mobility s/p surgical intervention. Posture: Pt has B rounded shoulders posture. ROM: UE ROM: Flexion: L 140, R 140, Abd: L 140, R 140, ER: B 80, IR: L T6 level , R T8 level. Strength: UE MMT: Flexion/Ext/Abd: 5/5, ER: L 4+/5, R 5/5, IR: L 5/5, R 4+/5. Elbow: Flexion/Ext: 5/5 Palpation: Pt has slight axillary cording present. Special Tests: Pt has equal medial and lateral quad activation in 10/10 quad sets. Mobility: ECOG Performance Status: Grade 0 Outcome Measure: FACT-G (EVAL): PWB: , SWB: , EWB: , FWB: , Total: 107/108 FACT-G (05/22/18) : PWB: , SWB: , EWB: , FWB: , Total: 101/108 If you have any questions or concerns, please feel free to contact me at . Thank you, Ladi Carrillo, PT, DPT, CLT MTDD
[~2018-07-05] MED LIST changes: -ALTEPLASE RECOMB 2 MG VIAL IVP PRN; -CYCLOPHOSPHAMIDE IVPB ONE; -DEXTROSE 5%(*) 100 ML BAG 100 ML IVPB PRN; -DOXOrubicin 50 MG/25 ML VIAL IVP ONE; -NS 0.9% IVPB ONE; -NS(*) 0.9% 100 ML BAG 100 ML IVPB PRN; +NYST15PO4 TP; -PACLITAXEL IVPB ONE; -PEGFILGRASTIM 6 MG/0.6 ML SYR SUBQ ONE; +POTA-1 PO; -WATER FOR INJ,STERILE 20 ML IVP PRN; -[UNRECOGNIZED DRUG - OTHER] IVPB ONE
== END ==
LOC: PT 04-06 11:15
PROVIDERS: ATTEND Internal Medicine Medical Oncology
DX: C50.922 Malignant neoplasm of unspecified site of left male breast (principal); M22.2X1 Patellofemoral disorders, right knee; M76.62 Achilles tendinitis, left leg; Z90.12 Acquired absence of left breast and nipple
CPT/HCPCS: 97163

== ENCOUNTER 2018-09-05 09:15 | Outpatient (RCR) | payer MEDICARE, OTHER ==
[2018-06-14 09:23] VITALS: BP 118/67
[2018-06-14] MEDS: LIDOCAINE/SOD BICARB 8.4% SYR ID PRN (09:29)
[2018-06-14] MEDS: NS(*) 0.9% 500 ML BAG 500 ML IV PRN (09:29)
[2018-06-14] MEDS: HEPARIN FLSH (PORT) 500 UN/5ML IVP PRN (09:30)
[2018-06-14 10:21] LABS: PLATELET COUNT, AUTOMATED 278 K/uL (150-450)
[2018-06-14] MEDS: FAMOTIDINE 10 MG/ML SDV IV PRN (10:30)
[2018-06-14] MEDS: DEXAMETHASONE SOD PHOS 10MG/ML IVP PRN (10:33)
[2018-06-14] MEDS: diphenhydrAMINE 50 MG/ML VIAL IVP PRN (10:49)
--- NOTE | 2018-06-14 11:25 | Oncology Progress Note ---
History of Present Illness Evaluation Evaluation Date: Jun 14, 2018 Evaluation Time: 09:45 Primary Care Provider Primary Care Provider: Bull Burris MD Accompanied by Accompanied by: Self Last seen by : Cecilia 06/07/2018 Chief Complaint Chief Complaint Week 3 of 12 Paclitaxel today Oncology History Oncology History 03/14/2018 Mr. Brown has history of hypercholesterolemia and a family history of breast cancer, who presents at the request of Dr. Burris for evaluation of recently diagnosed and resected breast cancer. To review. the patient had been in his usual state of health until recently, when he noted a palpable lump in the left breast. He also noted some changes of the nipple, and that it had "felt itchy. " He sought medical attention, and underwent a bilateral diagnostic mammogram on January 30. The mammogram revealed a large irregular spiculated mass with fibrotic stranding toward the chest wall and areola. Ultrasound performed on the same day had revealed a mass in this position, as well. Ultrasound-guided core biopsy was recommended. This was performed, along with a biopsy of a left axillary lymph node. Pathology from the biopsies revealed a poorly differentiated infiltrating ductal carcinoma of both the left breast mass and left axillary lymph node. The patient was seen in consultation by Dr. Burris, and he underwent left mastectomy, left axillary lymph node dissection, and placement of a port. Of note, the patient had undergone a CT scan of the chest , abdomen and pelvis on February 06, and this had revealed a 2.4 x 3.0 x 3.1 cm retroareolar left breast mass; prominent, but morphologically unremarkable left axillary lymph node measuring 0.9 x 2.3 cm, as well subtle lucencies of the inferior sternum and the T3 vertebral body. A 2 mm right lower lobe pulmonary nodule was incidentally noted. The patient's surgical pathology has revealed a 3.5 cm poorly differentiated ductal carcinoma (grade 3), with negative margins ( 0.2 cm at deep margin), two of six sampled lymph nodes were positive for metastatic tumor. The tumor is positive for both the estrogen and progesterone receptors, strongly. HER2 by IHC was 1+, not overexpressed. Ki-67 was quite elevated at 42.3. The patient did well with his surgery, and he eventually had his drains removed. - Feb 08, 2018 Left Breast mastectomy Cancer with met to left axillary LN - 03/22/2018 Sinus bradycardia Possible left atrial enlargement Question previous septal infarct (Q waves in V1-2) Abnormal ECG No previous ECGs available Confirmed by YVONNE CRUZ ([id number]) on 03/22/2018 -04/06/18 Doxorubicin and Cyclophosphamide followed by Neulasta injections. Chemo is to occur every 2 weeks for 4 cycles followed by a change of frequency to 1x/week for 12 weeks. Treatment Treatment 04/06/18 Initiated Doxorubicin and Cyclophosphamide followed by Neulasta injections. Chemo is to occur every 2 weeks for 4 cycles followed by a change of frequency to 05/31/2018 Cycle#1 paclitaxel 1x/week for 12 weeks. 06/07/2018 Cycle#2 paclitaxel 7204/2018 Cycle#3 paclitaxell HPI HPI Mr. 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 Currently receiving Paclitaxel C3 of 12. s/p left breast mastectomy. He completed adjuvant AC chemotherapy (Doxorubicin and Cyclophosphamide03/2018) . Patient is seen in the infusion center,for his cycle 3 of paclitaxel. He is tolerating treatment very well with minor toxicities. He reports mild runny nose and watery eyes, the reports having heartburns since he started paclitaxel treatment approximately 3-4 weeks ago for which he takes Prilosec OTC 3 times a day as needed. patient patient denies any hoarseness, chronic cough, no chest pain, no sensation of lump in the throat, On physical exam there is minor rash on bilateral upper extremities, minimal hyperpigmentation, and minimal tactile sensation on the finger nails. These hopefully should resolve upon completion of treatment. He denies any numbness tightness on left breast surgical site. On Physical exam, L breast surgical site clean dry intact. No limited left shoulder range of motion. cranial nerves 1-12 grossly intact. He reports no changes in appetite, oral intake is good, except minor change in taste buds. patient is hemodynamically stable and denies SOB, cardiac type chest pain, no abdominal pain,no nausea vomiting diarrhea, no constipation, no dark stools, no bruising no night sweats chills no fevers, patient reports no changes in bowel or bladder pattern.Significant PMH of history of hypercholesterolemia; family history of breast cancer; R knee patellofemoral syndrome; and recent L Achilles tendinopathy. 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 Diagnostic Studies Result Diagram: 06/14/1891906/14/18919 PMH Patient History: FH: breast cancer MOTHER Social/Occupational History Social History: Social History This is a 68 Yr old White male, he is M and has [] Children Hx Smoking: Yes Smoking Status: Former Smoker Allergies & Medications Allergies: Coded Allergies: amoxicillin (Verified Allergy, Intermediate, ELEVATED LIVER ENZYMES, ) clavulanic acid (Verified Allergy, Intermediate, ELEVATED LIVER ENZYMES, ) Home Meds Active Scripts Docusate Sodium (DOCUSATE SODIUM) 100 Mg Capsule, 1 CAP PO BID, #30 CAPSULE 0 Refills Prov:BULL BURRSI MD 02/09/18 Reported Medications Pegfilgrastim (NEULASTA) 6 Mg/0.6 Ml Disp.syrin, 6 MG SQ Every 2 weeks x 4 cycles - first cycle 04/07/18 04/06/18 Cyclophosphamide (CYCLOPHOSPHAMIDE) 500 Mg Soln, 1330 MG IV 600 mg/m2 every 2 weeks x 4 cycles - cycle 1 04/06/18 04/06/18 Doxorubicin Hcl (DOXORUBICIN HCL) 50 Mg/25 Ml Soln, 133 MG IV 60 mg/m2 every 2 weeks x 4 cycles - cycle 1 on 04/06/18 04/06/18 Lorazepam (ATIVAN) 0.5 Mg Tablet, 0.5 MG PO Q4-6H Y for NAUSEA May take 0.5 to 1 mg every 6 hours 04/06/18 Ondansetron (ZOFRAN ODT) 4 Mg Tab.rapdis, 8 MG PO Q8H Y for NAUSEA, TAB.ARTIE 04/06/18 Prochlorperazine Maleate (Compazine) 10 Mg Tablet, 10 MG PO PRN Y for NAUSEA 04/06/18 Omeprazole Magnesium (PRILOSEC OTC) 20 Mg Tablet.dr, 1 TAB PO QDAY, TAB 03/14/18 Atorvastatin Calcium (LIPITOR) 10 Mg Tablet, 0.5 TAB PO QODAY, TAB 02/06/18 Calc/D3/Mag/Zn/Banquet Supervisor/Christophe/[place] (CALCIUM 600 MG PLUS VIT D TAB) 1 Each Tablet, 1 EACH PO QDAY 02/06/18 Glucosam & Chondroit-Mv & Min3 (GLUCOTEN CAPLET) 1 Each Tablet, 1 EACH PO QDAY 02/06/18 Cholecalciferol (Vitamin D3) (VITAMIN D3) 1,000 Unit Tablet, 1000 UNIT PO QDAY, TAB 02/06/18 [place]-3/Dha/Epa/Fish Oil (Fish Oil 1,000 mg Softgel) 1,000 Mg (120 Mg-180 Mg) Capsule, 1 TAB PO QDAY 02/06/18 Multivitamin (MULTIVITAMINS) 1 Each Capsule, 1 EACH PO QDAY, CAPSULE 02/06/18 Review of Systems Constitution: Denies Appetite/Weight Change, Denies Fever/Chills/Sweating, Denies Recent Infection, Denies Other HEENT: No EARS: Tinnitus, No NOSE: Nasal Discharge, No THROAT: Sore Throat, No EYES: Dipolpia, No EARS: Hearing Problems, No NOSE: Epistaxis, No THROAT: Mouth Ulcers, No EYES: Vision Change, No OTHER Respiratory: No Cough, No Expectoration, No Hemoptysis, No Shortness of Breath , No OTHER Cardiovascular: No Chest Pain, No Orthopnea, No Edema, No Palpitations, No OTHER Gastrointestinal: No Nausea, No Vomitting, No Diarrehea, No Constipation, Heart Burn, No Swallowing Difficulties, No Abdominal Pain, No Other Gentiourinary: No Hematuria, No Dysuria, No Nocturia, No Other Musculoskeletal: No Muscle Pain, No Joint Pain, No Bone Pain, No Other Hematological: No Bleeding, No Weakness, No Enlarged Lyph Nodes, No Bruising, No Fatigue, No Other Skin: Skin Rash Psychiatric: No Anxiety, No Depression, No Other Vital Signs Vital Signs Temperature: 96.5 Pulse: 107 BP Systolic: 118 BP Diastolic: 67 Respiratory Rate: 15 O2 SAT: 94 O2 Delivery: Height (feet) Height (inches) 74.25 Weight lb: 211 Weight oz: Weight Kg (Onesimo): Pain: 0 ECOG -0 Physical Exam General: Looks Stable, Well Developed, Well Nourished, Other HEENT: HEAD:Atraumatic Neck: Supple Lungs: Clear to Auscultation, Percussion Bilaterally Heart: Regular Rate and Rhythm Abdomen: Soft and Nontender, No Hepatosplenomegaly, No Masses, No Other Extremities: No Cyanosis, No Clubbing, No Edema, No Other Lymphatics: No Peripheral Lymphadenopathy, No Other Psychiatric: Mood appears normal, Affect appears normal Skin: Skin Rashes Breast: No No Masses, No No Nipple Discharge, No No Skin Changes, No Other Assessment and Plan Assessment and Plan Mr. 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 Currently receiving Paclitaxel C3 of 12. s/p left breast mastectomy. He completed adjuvant AC chemotherapy (Doxorubicin and Cyclophosphamide 03/2018). Patient is seen in the infusion center,for his cycle 3 of paclitaxel. He is tolerating treatment very well with minor toxicities. Reports pain in his usual state of health in fact he just came back from a trip to [facility] in [place], [place] with his family. He continues to keep active, with fatigue 2-3 days followed chemotherapy, and bounce back to his baseline afterwards. DIAGNOSTIC DATA WBC is 3.8; hemoglobin 12.7; hematocrit 36.5; platelet count and count to 78; ANC2.8; Chem panel within acceptable parameters, except T. protein 6.1; 1. Stage IIB, hvspnnra-tachvcpy-drroiuft status [ER+] invasive ductal carcinoma of left male breast Dx: 01/2018. Malignant neoplasm of upper-outer quadrant of left male breast Estrogen receptor positive status [ER+], s/p left breast mastectomy. Laboratory results within acceptable parameters, discussed extensively with patient. We will initiate administration of Paclitaxel cycle# 1 today. 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 There is a potential increased risk for male breast cancer and prostate cancer with this mutation, Dr. Brooks recommended discussing Genetic Counselor in [place] with Pamela Ross. 2. Anticipating treatment induced constipation. Well managed, Patient was instructed to follow a bowel regimen using Colace one tab by mouth twice a day ; Senokot 8.6 mg to take 2 tabs by mouth at bedtime; MiraLAX to take 17.5 g 3 times a day; and patient was at educated to back off stool softeners A [place] 3 bowel movements per day. 3. GERD. He reports mild runny nose and watery eyes, the reports having heartburn since he started paclitaxel treatment approximately 3-4 weeks ago for which he takes Prilosec OTC 3 times a day as needed. We will add MOM to regimen today. Patient denies any hoarseness,chronic cough, no chest pain, no sensation of lump in the throat. 4. Runny nose/Watery eyes. Patient reports this is minor and he is dealing with it. We hope this to resolve. Upon completion of treatment. 5. Skin rash/hyperpigmentation of fingernails . triamcinolone+ vanicream 50/50 ratio on board to affected areas PRN. minimal hyperpigmentation, and minimal tactile sensation on the finger nails. These hopefully should resolve upon completion of treatment. CHRONIC - Hypercholesterolemia well controlled - R knee patellofemoral syndrome; patient is on Physical therapy - L Achilles tendinopathy. well controlled with Physical therapy PLAN #1 proceed with administration of paclitaxel C3/D1per orders on. WEEKLY LABS CBC ,CMP, add Mag Q 2 weeks. #2 Continue bowel regimen patient to be able to use Colace, Senokot, MiraLAX, as instructed #3 follow-up with M.D./APAP per protocol #4 Patient may use aloe vera juice for swish and spit, and thorough oral care including instruction on Nutrition packet rinse with baking soda for Ppfx mucositis. #5 patient continue to take Prisolosec OTC TID, plus milk of magnesia 10-20ml PO 20 minutes prior to meals, and before bedtime. #6. Patient to apply Compound cream triamcinolone+ vanicream 50/50 ratio to affected areas PRN. to wear long sleeves and sunscreen when outdoor. #7 we will monitor chemo induced neuropathy symptoms, hyperpigmentation of the nails and assess closely #8 patient to call cancer center with any issues or concerns Education, patient and option trader instructed to go to ER IMMEDIATELY, and or call Clinic if any SOB, fevers, chills, cardiac type chest pain, bleeding, excessive bruising, headaches, blurry vision, and pain unrelieved by medication. Patient and option trader had several additional insightful and appropriate questions especially regarding side effects and I believe I answered all of their questions to their satisfaction. patient and agree with treatment plan. TIME SPENT: 30 minutes 25 > minutes includes but not limited to discussion, counselling and co-ordination~ of care. Discussion with other health care providers, record review, review of lab work, diagnostic tests. Plan discussed extensively with patient. All the questions answered today. Thank you for the opportunity to be involved in the care of Mr. Cook Fausto Billing Level: Return visit 4 MAN FLORES-Emelyn, ONC Jun 14, 2018 11:25
[2018-06-14 12:58] VITALS: BP 114/79
[2018-06-21] MEDS: LIDOCAINE/SOD BICARB 8.4% SYR ID PRN (09:15)
[2018-06-21] MEDS: NS(*) 0.9% 500 ML BAG 500 ML IV PRN (09:15)
[2018-06-21 09:22] VITALS: BP 135/68
[2018-06-21 09:35] LABS: PLATELET COUNT, AUTOMATED 268 K/uL (150-450)
[2018-06-21] MEDS: DEXAMETHASONE SOD PHOS 10MG/ML IVP PRN (10:28)
[2018-06-21] MEDS: FAMOTIDINE 10 MG/ML SDV IV PRN (10:47)
[2018-06-21] MEDS: diphenhydrAMINE 50 MG/ML VIAL IVP PRN (11:04)
[2018-06-21 13:00] VITALS: BP 131/87
[2018-06-21] MEDS: HEPARIN FLSH (PORT) 500 UN/5ML IVP PRN (13:30)
--- NOTE | 2018-06-21 16:55 | Oncology Note ---
[facility] Patient History: FH: breast cancer MOTHER Social/Occupational History Social History: Social History This is a 68 Yr old White male, he is M and has [] Children Hx Smoking: Yes Smoking Status: Former Smoker Allergies & Medications Allergies: Coded Allergies: amoxicillin (Verified Allergy, Intermediate, ELEVATED LIVER ENZYMES, ) clavulanic acid (Verified Allergy, Intermediate, ELEVATED LIVER ENZYMES, ) Home Meds Active Scripts Docusate Sodium (DOCUSATE SODIUM) 100 Mg Capsule, 1 CAP PO BID, #30 CAPSULE 0 Refills Prov:BULL BURRIS MD 02/09/18 Reported Medications Pegfilgrastim (NEULASTA) 6 Mg/0.6 Ml Disp.syrin, 6 MG SQ Every 2 weeks x 4 cycles - first cycle 04/07/18 04/06/18 Cyclophosphamide (CYCLOPHOSPHAMIDE) 500 Mg Soln, 1330 MG IV 600 mg/m2 every 2 weeks x 4 cycles - cycle 1 04/06/18 04/06/18 Doxorubicin Hcl (DOXORUBICIN HCL) 50 Mg/25 Ml Soln, 133 MG IV 60 mg/m2 every 2 weeks x 4 cycles - cycle 1 on 04/06/18 04/06/18 Lorazepam (ATIVAN) 0.5 Mg Tablet, 0.5 MG PO Q4-6H Y for NAUSEA May take 0.5 to 1 mg every 6 hours 04/06/18 Ondansetron (ZOFRAN ODT) 4 Mg Tab.rapdis, 8 MG PO Q8H Y for NAUSEA, TAB.ARTIE 04/06/18 Prochlorperazine Maleate (Compazine) 10 Mg Tablet, 10 MG PO PRN Y for NAUSEA 04/06/18 Omeprazole Magnesium (PRILOSEC OTC) 20 Mg Tablet.dr, 1 TAB PO QDAY, TAB 03/14/18 Atorvastatin Calcium (LIPITOR) 10 Mg Tablet, 0.5 TAB PO QODAY, TAB 02/06/18 Calc/D3/Mag/Zn/Chopper Gun Operator/Christophe/[place] (CALCIUM 600 MG PLUS VIT D TAB) 1 Each Tablet, 1 EACH PO QDAY 02/06/18 Glucosam & Chondroit-Mv & Min3 (GLUCOTEN CAPLET) 1 Each Tablet, 1 EACH PO QDAY 02/06/18 Cholecalciferol (Vitamin D3) (VITAMIN D3) 1,000 Unit Tablet, 1000 UNIT PO QDAY, TAB 02/06/18 [place]-3/Dha/Epa/Fish Oil (Fish Oil 1,000 mg Softgel) 1,000 Mg (120 Mg-180 Mg) Capsule, 1 TAB PO QDAY 02/06/18 Multivitamin (MULTIVITAMINS) 1 Each Capsule, 1 EACH PO QDAY, CAPSULE 02/06/18 Evaluation Date: June 21, 2018 Evaluation Time: 09:50 Primary Care Provider Primary Care Provider: Bull Burris MD Accompanied by Accompanied by: Self Last seen by : Cecilia 06/07/2018 Chief Complaint Chief Complaint Week 4 of 12 Paclitaxel today Treatment Treatment 04/06/18 Initiated Doxorubicin and Cyclophosphamide followed by Neulasta injections. Chemo is to occur every 2 weeks for 4 cycles followed by a change of frequency to 05/31/2018 Cycle#1 paclitaxel 1x/week for 12 weeks. 06/07/2018 Cycle#2 paclitaxel 06/14/2018 Cycle#3 paclitaxel 06/21/2018 Cycle #4 paclitaxel HPI HPI Mr. 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 Currently receiving Paclitaxel C4 of 12. s/p left breast mastectomy. He completed adjuvant AC chemotherapy (Doxorubicin and Cyclophosphamide03/2018) . Patient is seen in the infusion center,for his cycle #4 of paclitaxel. He is tolerating treatment very well with minor toxicities. He reports mild runny nose and watery eyes, the reports having heartburns since he started paclitaxel treatment approximately 3-4 weeks ago for which he takes Prilosec OTC 3 times a day as needed. patient patient denies any hoarseness, chronic cough, no chest pain, no sensation of lump in the throat, On physical exam minor skin rash improving. minimal hyperpigmentation, and minimal tactile sensation of the thumb and index finger nails. These hopefully should resolve upon completion of treatment. He denies any numbness tightness on left breast surgical site. On Physical exam, L breast surgical site clean dry intact. No limited left shoulder range of motion. cranial nerves 1-12 grossly intact. He reports no changes in appetite, oral intake is good, except minor change in taste buds. patient is hemodynamically stable and denies SOB, cardiac type chest pain, no abdominal pain,no nausea vomiting diarrhea, no constipation, no dark stools, no bruising no night sweats chills no fevers, patient reports no changes in bowel or bladder pattern.Significant PMH of history of hypercholesterolemia; family history of breast cancer; R knee patellofemoral syndrome; and recent L Achilles tendinopathy. 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 Review of Systems Constitution: Denies Appetite/Weight Change, Denies Fever/Chills/Sweating, Denies Recent Infection, Denies Other HEENT: No EARS: Tinnitus, No NOSE: Nasal Discharge, No THROAT: Sore Throat, No EYES: Dipolpia, No EARS: Hearing Problems, No NOSE: Epistaxis, No THROAT: Mouth Ulcers, No EYES: Vision Change, No OTHER Respiratory: No Cough, No Expectoration, No Hemoptysis, No Shortness of Breath , No OTHER Cardiovascular: No Chest Pain, No Orthopnea, No Edema, No Palpitations, No OTHER Gastrointestinal: No Nausea, No Vomiting, No Diarrhea, No Constipation, Heart Burn, No Swallowing Difficulties, No Abdominal Pain, No Other Gentiourinary: No Hematuria, No Dysuria, No Nocturia, No Other Musculoskeletal: No Muscle Pain, No Joint Pain, No Bone Pain, No Other Hematological: No Bleeding, No Weakness, No Enlarged Lyph Nodes, No Bruising, No Fatigue, No Other Skin: Skin Rash Psychiatric: No Anxiety, No Depression, No Other Vital Signs Vital Signs Temperature: 96.5 Pulse: 102 BP Systolic: 116 BP Diastolic: 66 Respiratory Rate: 16 O2 SAT: 95 O2 Delivery: Height (feet) Height (inches) 74.25 Weight lb: 211 Weight oz: Weight Kg (Onesimo): Pain: 0 ECOG -0 Physical Exam General: Looks Stable, Well Developed, Well Nourished, Other HEENT: HEAD:Atraumatic Neck: Supple Lungs: Clear to Auscultation, Percussion Bilaterally Heart: Regular Rate and Rhythm Abdomen: Soft and Nontender, No Hepatosplenomegaly, No Masses, No Other Extremities: No Cyanosis, No Clubbing, No Edema, No Other. Improvement of bilateral upper extremities ROM. Lymphatics: No Peripheral Lymphadenopathy, No Other Psychiatric: Mood appears normal, Affect appears normal Skin: Skin Rashes Breast: No No Masses, No No Nipple Discharge, No No Skin Changes, No Other Assessment and Plan Assessment and Plan Mr. 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 Currently receiving Paclitaxel C3 of 12. s/p left breast mastectomy. He completed adjuvant AC chemotherapy (Doxorubicin and Cyclophosphamide 03/2018). Patient is seen in the infusion center,for his cycle 3 of paclitaxel. He is tolerating treatment very well with minor toxicities. patient is tolerating treatment relatively well thus far. he reports being in his usual state of health, with no major issues reported.. He continues to keep active, with fatigue 2-3 days followed chemotherapy, and bounce back to his baseline afterwards. DIAGNOSTIC DATA within acceptable parameters, except T. protein 3.9; 1. Stage IIB, jjzzhqys-zdiztvwz-ahgdzujg status [ER+] invasive ductal carcinoma of left male breast Dx: 01/2018. Malignant neoplasm of upper-outer quadrant of left male breast Estrogen receptor positive status [ER+], s/p left breast mastectomy. Laboratory results within acceptable parameters, discussed extensively with patient. We will administration of Paclitaxel cycle#4 today. 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 There is a potential increased risk for male breast cancer and prostate cancer with this mutation, Dr. Brooks recommended discussing Genetic Counselor in [place] with Pamela Flower. 2. Anticipating treatment induced Dehydration. patient to increase fluid intake , and may need IV fluid hydration PRN once per week during treatment. 3 Constipation. Well managed, Patient to continue with bowel regimen using Colace one tab by mouth twice a day; Senokot 8.6 mg to take 2 tabs by mouth at bedtime; MiraLAX to take 17.5 g 3 times a day; and patient was at educated to back off stool softeners A [place] 3 bowel movements per day. 4. GERD. He reports having heartburn since he started paclitaxel treatment approximately 3-4 weeks ago for which he takes Prilosec OTC 3 times a day as needed. We will add MOM to regimen today. Patient denies any hoarseness,chronic cough, no chest pain, no sensation of lump in the throat. 5. Runny nose/Watery eyes. resolving. Patient reports this is minor and he is dealing with it. We hope this to resolve. Upon completion of treatment. 6. Skin rash/hyperpigmentation of fingernails . Improving,triamcinolone+ vanicream 50/50 ratio on board to affected areas PRN. minimal hyperpigmentation, and minimal tactile sensation on the finger nails. These hopefully should resolve upon completion of treatment. 7.Chemo induced neuropathy of hands. continue to use stress relief tennis ball, and PT along with reflexology type of massage to stimulate circulation. CHRONIC - Hypercholesterolemia well controlled - R knee patellofemoral syndrome; patient is on Physical therapy - L Achilles tendinopathy. well controlled with Physical therapy PLAN #1 proceed with administration of paclitaxel C4/D1per orders on. WEEKLY LABS CBC ,CMP, add Mag Q 2 weeks. #2 Continue bowel regimen patient to be able to use Colace, Senokot, MiraLAX, as instructed #3 follow-up with M.D./APAP per protocol #4 Patient may use aloe vera juice for swish and spit, and thorough oral care including instruction on Nutrition packet rinse with baking soda for Ppfx mucositis. #5 Patient continue to take Prisolosec OTC TID, plus milk of magnesia 10-20ml PO 20 minutes prior to meals, and before bedtime. #6. Patient to continue to apply Compound cream triamcinolone+ vanicream 50/50 ratio to affected areas PRN. to wear long sleeves and sunscreen when outdoors. #7 we will monitor chemo induced neuropathy symptoms, hyperpigmentation of the nails affecting thumb and index finger bilaterally at present time. Patient to continue with PT, exercises, and reflexology type of massages of the hands. We will continue assess closely #8 patient to call cancer center with any issues or concerns Education, patient and data designer instructed to go to ER IMMEDIATELY, and or call Clinic if any SOB, fevers, chills, fever, cardiac type chest pain, bleeding , excessive bruising, headaches, blurry vision, and pain unrelieved by medication. Patient and data designer had several additional insightful and appropriate questions especially regarding side effects and I believe I answered all of their questions to their satisfaction. patient and agree with treatment plan. TIME SPENT: 30 minutes 25 > minutes includes but not limited to discussion, counselling and co-ordination~ of care. Discussion with other health care providers, record review, review of lab work, diagnostic tests. Plan discussed extensively with patient. All the questions answered today. Thank you for the opportunity to be involved in the care of Mr. Kevin Lambert Billing Level: Return visit 4 MAN FLOERS, ONC Jun 21, 2018 16:55
[2018-06-28 09:54] VITALS: BP 119/69
[2018-06-28] MEDS: NS(*) 0.9% 500 ML BAG 500 ML IV PRN (10:13)
[2018-06-28] MEDS: LIDOCAINE/SOD BICARB 8.4% SYR ID PRN (10:13)
[2018-06-28] MEDS: DEXAMETHASONE SOD PHOS 10MG/ML IVP PRN (10:14)
[2018-06-28] MEDS: diphenhydrAMINE 50 MG/ML VIAL IVP PRN (10:14)
[2018-06-28] MEDS: FAMOTIDINE 10 MG/ML SDV IV PRN (10:14)
--- NOTE | 2018-06-28 10:30 | Oncology Progress Note ---
History of Present Illness Evaluation Evaluation Date: Jun 28, 2018 Evaluation Time: 09:45 Primary Care Provider Primary Care Provider: Bull Burris MD Accompanied by Accompanied by: Significant other Last seen by : Cecilia 06/07/2018 Chief Complaint Chief Complaint Week 5 of 12 Paclitaxel today for Stage IIB, [id number] invasive ductal carcinoma of left male breast Treatment Treatment 04/06/18 Initiated Doxorubicin and Cyclophosphamide followed by Neulasta injections. Chemo is to occur every 2 weeks for 4 cycles followed by a change of frequency to Q2 weeks infusion 05/31/2018 Cycle#1 paclitaxel 1x/week for 12 weeks. 06/07/2018 Cycle#2 paclitaxel 06/14/2018 Cycle#3 paclitaxel 06/21/2018 Cycle #4 paclitaxel 06/28/2018 Cycle #5 paclitaxel HPI HPI Mr. 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 Currently receiving Paclitaxel C5 of 12. s/p left breast mastectomy. He completed adjuvant AC chemotherapy (Doxorubicin and Cyclophosphamide03/2018) . Patient is seen in the infusion center,for his cycle #5 of paclitaxel. He is tolerating treatment very well with minor toxicities. He continues to reports having heartburns since he started paclitaxel treatment approximately 4-5 weeks ago for which he takes Prilosec OTC 3 times a day as needed. patient patient denies any hoarseness, chronic cough, no chest pain, no sensation of lump in the throat, On physical exam minor skin rash on B/L upper extremities improving. minimal hyperpigmentation, and minimal tactile sensation of the thumb and index finger nails. These hopefully should resolve upon completion of treatment. He denies any numbness tightness on left breast surgical site. On Physical exam, L breast surgical site clean dry intact. No limited left shoulder range of motion. cranial nerves 1-12 grossly intact. He reports no changes in appetite, oral intake is good, except minor change in taste buds alleviated with well seasoned foods, such as bradford, etc... 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 Diagnostic Studies Result Diagram: 06/28/1891906/28/18919 PMH Patient History: FH: breast cancer MOTHER Social/Occupational History Social History: Social History This is a 68 Yr old White male, he is M and has [] Children Hx Smoking: Yes Smoking Status: Former Smoker Allergies & Medications Allergies: Coded Allergies: amoxicillin (Verified Allergy, Intermediate, ELEVATED LIVER ENZYMES, ) clavulanic acid (Verified Allergy, Intermediate, ELEVATED LIVER ENZYMES, ) Home Meds Active Scripts Docusate Sodium (DOCUSATE SODIUM) 100 Mg Capsule, 1 CAP PO BID, #30 CAPSULE 0 Refills Prov:BULL BURRIS MD 02/09/18 Reported Medications Pegfilgrastim (NEULASTA) 6 Mg/0.6 Ml Disp.syrin, 6 MG SQ Every 2 weeks x 4 cycles - first cycle 04/07/18 04/06/18 Cyclophosphamide (CYCLOPHOSPHAMIDE) 500 Mg Soln, 1330 MG IV 600 mg/m2 every 2 weeks x 4 cycles - cycle 1 04/06/18 04/06/18 Doxorubicin Hcl (DOXORUBICIN HCL) 50 Mg/25 Ml Soln, 133 MG IV 60 mg/m2 every 2 weeks x 4 cycles - cycle 1 on 04/06/18 04/06/18 Lorazepam (ATIVAN) 0.5 Mg Tablet, 0.5 MG PO Q4-6H Y for NAUSEA May take 0.5 to 1 mg every 6 hours 04/06/18 Ondansetron (ZOFRAN ODT) 4 Mg Tab.rapdis, 8 MG PO Q8H Y for NAUSEA, TAB.ARTIE 04/06/18 Prochlorperazine Maleate (Compazine) 10 Mg Tablet, 10 MG PO PRN Y for NAUSEA 04/06/18 Omeprazole Magnesium (PRILOSEC OTC) 20 Mg Tablet.dr, 1 TAB PO QDAY, TAB 03/14/18 Atorvastatin Calcium (LIPITOR) 10 Mg Tablet, 0.5 TAB PO QODAY, TAB 02/06/18 Calc/D3/Mag/Zn/Template Fitter/Christopeh/[place] (CALCIUM 600 MG PLUS VIT D TAB) 1 Each Tablet, 1 EACH PO QDAY 02/06/18 Glucosam & Chondroit-Mv & Min3 (GLUCOTEN CAPLET) 1 Each Tablet, 1 EACH PO QDAY 02/06/18 Cholecalciferol (Vitamin D3) (VITAMIN D3) 1,000 Unit Tablet, 1000 UNIT PO QDAY, TAB 02/06/18 Shafer-3/Dha/Epa/Fish Oil (Fish Oil 1,000 mg Softgel) 1,000 Mg (120 Mg-180 Mg) Capsule, 1 TAB PO QDAY 02/06/18 Multivitamin (MULTIVITAMINS) 1 Each Capsule, 1 EACH PO QDAY, CAPSULE 02/06/18 Review of Systems Constitution: Denies Appetite/Weight Change, Denies Fever/Chills/Sweating, Denies Recent Infection, Denies Other HEENT: No EARS: Tinnitus, No NOSE: Nasal Discharge, No THROAT: Sore Throat, No EYES: Dipolpia, No EARS: Hearing Problems, No NOSE: Epistaxis, No THROAT: Mouth Ulcers, No EYES: Vision Change, No OTHER Respiratory: No Cough, No Expectoration, No Hemoptysis, No Shortness of Breath , No OTHER Cardiovascular: No Chest Pain, No Orthopnea, No Edema, No Palpitations, No OTHER Gastrointestinal: No Nausea, No Vomitting, No Diarrehea, No Constipation, Heart Burn, No Swallowing Difficulties, No Abdominal Pain, No Other Gentiourinary: No Hematuria, No Dysuria, No Nocturia, No Other Musculoskeletal: No Muscle Pain, No Joint Pain, No Bone Pain, No Other Hematological: No Bleeding, No Weakness, No Enlarged Lyph Nodes, No Bruising, No Fatigue, No Other Skin: Skin Rash Psychiatric: No Anxiety, No Depression, No Other Vital Signs Vital Signs Temperature: 97.6 Pulse: 88 BP Systolic: 119 BP Diastolic: 69 Respiratory Rate: 16 O2 SAT: 94 O2 Delivery: Height (feet) Height (inches) 74.25 Weight lb: 211 Weight oz: Weight Kg (Onesimo): Pain: 0 Physical Exam General: Looks Stable, Well Developed, Well Nourished, Other HEENT: HEAD:Atraumatic Neck: Supple Lungs: Clear to Auscultation, Percussion Bilaterally Heart: Regular Rate and Rhythm Abdomen: Soft and Nontender, No Hepatosplenomegaly, No Masses, No Other Extremities: No Cyanosis, No Clubbing, No Edema, No Other Lymphatics: No Peripheral Lymphadenopathy, No Other Psychiatric: Mood appears normal, Affect appears normal Skin: Skin Rashes Breast: No No Masses, No No Nipple Discharge, No No Skin Changes, No Other Assessment and Plan Assessment and Plan Mr. 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 Currently receiving Paclitaxel C5 of 12. s/p left breast mastectomy. He completed adjuvant AC chemotherapy (Doxorubicin and Cyclophosphamide03/2018) . Patient is seen in the infusion center,for his cycle #5 of paclitaxel. He is tolerating treatment very well with minor toxicities. He continues to reports having heartburns since he started paclitaxel treatment approximately 4-5 weeks ago for which he takes antacid. I had a good visit with mr. Brown today, he inormes me that this was the first week, where the fatigue and symptoms were less, and he had good energy,he continue to keep active and on the go. DIAGNOSTIC DATA within acceptable parameters, reviewed on Hublished 1. Stage IIB, eakhvowd-obrwzrrf-ajtrzbsk status [ER+] invasive ductal carcinoma of left male breast Dx: 01/2018. Malignant neoplasm of upper-outer quadrant of left male breast Estrogen receptor positive status [ER+], s/p left breast mastectomy. Laboratory results within acceptable parameters, discussed extensively with patient. We will administration of Paclitaxel cycle#5 today. He will follow with treatment of chemotherapy Q2 weeks starting today. 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 There is a potential increased risk for male breast cancer and prostate cancer with this mutation, Dr. Brooks recommended discussing Genetic Counselor in [place] with Pamela Mundo. patient did this. 2. Anticipating treatment induced Dehydration. patient to increase fluid intake , and may need IV fluid hydration PRN once per week during treatment. 3 Constipation. Well managed, Patient to continue with bowel regimen using Colace one tab by mouth twice a day; Senokot 8.6 mg to take 2 tabs by mouth at bedtime; MiraLAX to take 17.5 g 3 times a day; and patient was at educated to back off stool softeners A [place] 3 bowel movements per day. 4. GERD. He reports having heartburn since he started paclitaxel treatment, he has been taking Prisolosec OTC, he may change to Nexium one tab Po BID during treatment. Patient denies any hoarseness,chronic cough, no chest pain, no sensation of lump in the throat. 5. Runny nose/Watery eyes. resolving. Patient reports this is minor and he is dealing with it. We hope this to resolve. Upon completion of treatment. 6. Skin rash/hyperpigmentation of fingernails . Improving, denies itchiness, nor pain. triamcinolone+ vanicream 50/50 ratio on board to affected areas PRN. minimal hyperpigmentation, and minimal tactile sensation on the finger nails. These hopefully should resolve upon completion of treatment. 7.Chemo induced neuropathy of hands. continue to use stress relief tennis ball, and PT along with reflexology type of massage to stimulate circulation. CHRONIC - Hypercholesterolemia well controlled - R knee patellofemoral syndrome; patient is on Physical therapy - L Achilles tendinopathy. well controlled with Physical therapy PLAN #1 proceed with administration of paclitaxel C5/D1per orders on. WEEKLY LABS CBC ,CMP, add Mag Q 2 weeks.He will follow with treatment of chemotherapy Q2 weeks starting today #2 Continue bowel regimen patient to be able to use Colace, Senokot, MiraLAX, as instructed #3 follow-up with M.D./APAP per protocol #4 Patient may use aloe vera juice for swish and spit, and thorough oral care including instruction on Nutrition packet rinse with baking soda for Ppfx mucositis. #5 Patient to take Nexium PO BID #6. Patient to continue to apply Compound cream triamcinolone+ vanicream 50/50 ratio to affected areas PRN. to wear long sleeves and sunscreen when outdoors. #7 we will monitor chemo induced neuropathy symptoms, hyperpigmentation of the nails affecting thumb and index finger bilaterally at present time. Patient to continue with PT, exercises, and reflexology type of massages of the hands. We will continue assess closely #8 K+ of 3.6, we will send home with oral potassium 10meq Po Daily. #9 Patient To receive 1Liter NS IV fluid Hydration on 07/05/2018, add 20KCL is K> /=3.6 in anticipation for decrease lytes. #10 Patient to call cancer center with any issues or concerns Education, patient and development coordinator instructed to go to ER IMMEDIATELY, and or call Clinic if any SOB, fevers, chills, fever, cardiac type chest pain, bleeding , excessive bruising, headaches, blurry vision, and pain unrelieved by medication. Patient and development coordinator had several additional insightful and appropriate questions especially regarding side effects and I believe I answered all of their questions to their satisfaction. patient and agree with treatment plan. TIME SPENT: 20 minutes 15 > minutes includes but not limited to discussion, counselling and co-ordination~ of care. Discussion with other health care providers, record review, review of lab work, diagnostic tests. Plan discussed extensively with patient. All the questions answered today. Thank you for the opportunity to be involved in the care of Mr. Kevin Lambert Billing Level: Return visit 3 MAN FLORES, ONC Jun 28, 2018 10:30
[2018-06-28] MEDS: HEPARIN FLSH (PORT) 500 UN/5ML IVP PRN (12:27)
[2018-06-28 12:37] VITALS: BP 116/72
[2018-07-05 09:10] VITALS: BP 114/66
[2018-07-05] MEDS: DEXAMETHASONE SOD PHOS 10MG/ML IVP PRN (09:56)
[2018-07-05] MEDS: HEPARIN FLSH (PORT) 500 UN/5ML IVP PRN (10:03)
[2018-07-05] MEDS: NS(*) 0.9% 500 ML BAG 500 ML IV PRN (10:03)
[2018-07-05] MEDS: LIDOCAINE/SOD BICARB 8.4% SYR ID PRN (10:03)
[2018-07-05] MEDS: FAMOTIDINE 10 MG/ML SDV IV PRN (10:10)
[2018-07-05] MEDS: diphenhydrAMINE 50 MG/ML VIAL IVP PRN (10:44)
--- NOTE | 2018-07-05 11:37 | Oncology Progress Note ---
History of Present Illness Evaluation Evaluation Date: Jul 05, 2018 Evaluation Time: 10:30 Primary Care Provider Primary Care Provider: Bull Burris MD Accompanied by Accompanied by: Significant other Last seen by : Cecilia 06/07/2018 Chief Complaint Chief Complaint Week 6 of 12 Paclitaxel today for Stage IIB, [id number] invasive ductal carcinoma of left male breast Treatment Treatment 04/06/18 Initiated Doxorubicin and Cyclophosphamide followed by Neulasta injections. Chemo is to occur every 2 weeks for 4 cycles followed by a change of frequency to Q2 weeks infusion 05/31/2018 Cycle#1 paclitaxel 1x/week for 12 weeks. 06/07/2018 Cycle#2 paclitaxel 06/14/2018 Cycle#3 paclitaxel 06/21/2018 Cycle #4 paclitaxel 06/28/2018 Cycle #5 paclitaxel 07/05/2018 Cycle#6 paclitaxel HPI HPI Mr. 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 Currently receiving Paclitaxel C6 of 12. s/p left breast mastectomy. He completed adjuvant AC chemotherapy (Doxorubicin and Cyclophosphamide 03/2018) . Patient is seen in the infusion center,for his cycle #6 of paclitaxel. He is tolerating treatment very well with minor toxicities. minimal heartburns (on Nexium), loose stools ( Imodium). Patient patient denies any hoarseness, chronic cough, no chest pain, no sensation of lump in the throat, On physical exam minor skin rash on B/L upper extremities ( on vanicream and traimcinolone) improving. Left tongue oral lesion ( nystatin and oral rinses on board), L breast surgical site clean dry intact. No limited left shoulder range of motion.minimal hyperpigmentation, and minimal tactile sensation of the thumb and index finger nails. These hopefully should resolve upon completion of treatment. He denies any numbness tightness cranial nerves 1-12 grossly intact. He reports no changes in appetite, oral intake is good, except minor change in taste buds alleviated with well seasoned foods, such as bradford, etc... patient is hemodynamically stable and afebrile. Denies SOB, cardiac type chest pain, no abdominal pain,no nausea vomiting diarrhea, no constipation, no dark stools, no bruising no night sweats chills no fevers, patient reports no changes or bladder pattern. He feels a little more tired this week but he continues to be active and on the Go. His grandchildren will be spending this weekend with thin and he is looking forward to that. 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 Diagnostic Studies Result Diagram: 07/05/1891907/05/18919 PMH Patient History: FH: breast cancer MOTHER Social/Occupational History Social History: Social History This is a 68 Yr old White male, he is M and has [] Children Hx Smoking: Yes Smoking Status: Former Smoker Allergies & Medications Allergies: Coded Allergies: amoxicillin (Verified Allergy, Intermediate, ELEVATED LIVER ENZYMES, ) clavulanic acid (Verified Allergy, Intermediate, ELEVATED LIVER ENZYMES, ) Home Meds Active Scripts Docusate Sodium (DOCUSATE SODIUM) 100 Mg Capsule, 1 CAP PO BID, #30 CAPSULE 0 Refills Prov:BULL BURRIS MD 02/09/18 Reported Medications Pegfilgrastim (NEULASTA) 6 Mg/0.6 Ml Disp.syrin, 6 MG SQ Every 2 weeks x 4 cycles - first cycle 04/07/18 04/06/18 Cyclophosphamide (CYCLOPHOSPHAMIDE) 500 Mg Soln, 1330 MG IV 600 mg/m2 every 2 weeks x 4 cycles - cycle 1 04/06/18 04/06/18 Doxorubicin Hcl (DOXORUBICIN HCL) 50 Mg/25 Ml Soln, 133 MG IV 60 mg/m2 every 2 weeks x 4 cycles - cycle 1 on 04/06/18 04/06/18 Lorazepam (ATIVAN) 0.5 Mg Tablet, 0.5 MG PO Q4-6H Y for NAUSEA May take 0.5 to 1 mg every 6 hours 04/06/18 Ondansetron (ZOFRAN ODT) 4 Mg Tab.rapdis, 8 MG PO Q8H Y for NAUSEA, TAB.ARTIE 04/06/18 Prochlorperazine Maleate (Compazine) 10 Mg Tablet, 10 MG PO PRN Y for NAUSEA 04/06/18 Omeprazole Magnesium (PRILOSEC OTC) 20 Mg Tablet.dr, 1 TAB PO QDAY, TAB 03/14/18 Atorvastatin Calcium (LIPITOR) 10 Mg Tablet, 0.5 TAB PO QODAY, TAB 02/06/18 Calc/D3/Mag/Zn/Fast Brim Pouncer/Christophe/[place] (CALCIUM 600 MG PLUS VIT D TAB) 1 Each Tablet, 1 EACH PO QDAY 02/06/18 Glucosam & Chondroit-Mv & Min3 (GLUCOTEN CAPLET) 1 Each Tablet, 1 EACH PO QDAY 02/06/18 Cholecalciferol (Vitamin D3) (VITAMIN D3) 1,000 Unit Tablet, 1000 UNIT PO QDAY, TAB 02/06/18 Clear-3/Dha/Epa/Fish Oil (Fish Oil 1,000 mg Softgel) 1,000 Mg (120 Mg-180 Mg) Capsule, 1 TAB PO QDAY 02/06/18 Multivitamin (MULTIVITAMINS) 1 Each Capsule, 1 EACH PO QDAY, CAPSULE 02/06/18 Review of Systems Constitution: Denies Appetite/Weight Change, Denies Fever/Chills/Sweating, Denies Recent Infection, Denies Other HEENT: No EARS: Tinnitus, No NOSE: Nasal Discharge, No THROAT: Sore Throat, No EYES: Dipolpia, No EARS: Hearing Problems, No NOSE: Epistaxis, THROAT: Mouth Ulcers (left tongue oral lesion), No EYES: Vision Change, OTHER Respiratory: No Cough, No Expectoration, No Hemoptysis, No Shortness of Breath , No OTHER Cardiovascular: No Chest Pain, No Orthopnea, No Edema, No Palpitations, No OTHER Gastrointestinal: No Nausea, No Vomitting, No Diarrehea, No Constipation, Heart Burn, No Swallowing Difficulties, No Abdominal Pain, No Other Gentiourinary: No Hematuria, No Dysuria, No Nocturia, No Other Musculoskeletal: No Muscle Pain, No Joint Pain, No Bone Pain, No Other Hematological: No Bleeding, No Weakness, No Enlarged Lyph Nodes, No Bruising, No Fatigue, No Other Skin: Skin Rash Psychiatric: No Anxiety, No Depression, No Other Vital Signs Vital Signs Temperature: 97.6 Pulse: 95 BP Systolic: 114 BP Diastolic: 66 Respiratory Rate: 16 O2 SAT: 95 O2 Delivery: Height (feet) Height (inches) 74.25 Weight lb: 211 Weight oz: Weight Kg (Onesimo): Pain: 0 Physical Exam General: Looks Stable, Well Developed, Well Nourished, Other HEENT: HEAD:Atraumatic Neck: Supple Lungs: Clear to Auscultation, Percussion Bilaterally Heart: Regular Rate and Rhythm Abdomen: Soft and Nontender, No Hepatosplenomegaly, No Masses, No Other Extremities: No Cyanosis, No Clubbing, No Edema, No Other Lymphatics: No Peripheral Lymphadenopathy, No Other Psychiatric: Mood appears normal, Affect appears normal Skin: Skin Rashes Breast: No No Masses, No No Nipple Discharge, No No Skin Changes, No Other Assessment and Plan Assessment and Plan Mr. 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 Currently receiving Paclitaxel C6 of 12. s/p left breast mastectomy. He completed adjuvant AC chemotherapy (Doxorubicin and Cyclophosphamide 03/2018) . Patient is seen in the infusion center,for his cycle #6 of paclitaxel. He is tolerating treatment very well with minor toxicities. minimal heartburns (on Nexium), loose stools ( Imodium). Patient patient denies any hoarseness, chronic cough, no chest pain, no sensation of lump in the throat, On physical exam minor skin rash on B/L upper extremities ( on vanicream and traimcinolone) improving. Left tongue oral lesion ( nystatin and oral rinses on board), L breast surgical site clean dry intact. No limited left shoulder range of motion.minimal hyperpigmentation, and minimal tactile sensation of the thumb and index finger nails.Mr. Brown reports that this week's fatigue was a little more pronounced after treatment although he continues to keep active. DIAGNOSTIC DATA within acceptable parameters, reviewed on [place]rom[place] ANC of 1.7; WBC of 2.6 1. Stage IIB, ififbkzy-vvnfgwhx-iolprfer status [ER+] invasive ductal carcinoma of left male breast Dx: 01/2018. Malignant neoplasm of upper-outer quadrant of left male breast Estrogen receptor positive status [ER+], s/p left breast mastectomy. Laboratory results within acceptable parameters, discussed extensively with patient. We will administration of Paclitaxel cycle#6 today. he continues to tolerate treatment very well with minimal expected side effects.. 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 There is a potential increased risk for male breast cancer and prostate cancer with this mutation, Dr. Brooks recommended discussing Genetic Counselor in [place] with Pamela Flower. patient did this. 2. Anticipating treatment induced Dehydration. patient to increase fluid intake , and may need IV fluid hydration PRN once per week during treatment. 3 Constipation/Diarrhea acute on chronic.. Well managed, Patient to continue with bowel regimen using Colace one tab by mouth twice a day; Senokot 8.6 mg to take 2 tabs by mouth at bedtime; MiraLAX to take 17.5 g 3 times a day; and patient was at educated to back off stool softeners A [place] 3 bowel movements per day. 4. GERD. He reports having heartburn since he started paclitaxel treatment, he has been taking Prisolosec OTC, and Nexium one tab Po BID during treatment. Patient denies any hoarseness,chronic cough, no chest pain, no sensation of lump in the throat. 5. Runny nose/Watery eyes. resolving. Patient reports this is minor and he is dealing with it. We hope this to resolve. Upon completion of treatment. 6. Skin rash/hyperpigmentation of fingernails . Improving, denies itchiness, nor pain. triamcinolone+ vanicream 50/50 ratio on board to affected areas PRN. minimal hyperpigmentation, and minimal tactile sensation on the finger nails. These hopefully should resolve upon completion of treatment. 7.Chemo induced neuropathy of hands. continue to use stress relief tennis ball, and PT along with reflexology type of massage to stimulate circulation. 8. Mucositis. left tongue lesion, nystatin on board. instructed thorough oral care and continue to do mouth rinses with baking soda. per nutrition packet. CHRONIC - Hypercholesterolemia well controlled - R knee patellofemoral syndrome; patient is on Physical therapy - L Achilles tendinopathy. well controlled with Physical therapy PLAN #1 proceed with administration of paclitaxel C6/D1per orders on. WEEKLY LABS CBC ,CMP, add Mag Q 2 weeks. #3 follow-up with M.D./APAP per protocol #4 Patient may use Nystatin 4ml Po TID ; aloe vera juice for swish and spit, and thorough oral care including instruction on Nutrition packet rinse with baking soda for Ppfx mucositis. #5 Will monitor counts WBC ANC, tightly. May implement abx ppfx PRN #6. Patient to continue to apply Compound cream triamcinolone+ vanicream 50/50 ratio to affected areas PRN. to wear long sleeves and sunscreen when outdoors. #7 we will monitor chemo induced neuropathy symptoms, hyperpigmentation of the nails affecting thumb and index finger bilaterally at present time. Patient to continue with PT, exercises, and reflexology type of massages of the hands. We will continue assess closely #8 will continue to monitor lytes and replete as clinically indicated. #9 .Patient to call cancer center with any issues or concerns Education, patient and field instructor instructed to go to ER IMMEDIATELY, and or call Clinic if any SOB, fevers, chills, fever, cardiac type chest pain, bleeding , excessive bruising, headaches, blurry vision, and pain unrelieved by medication. Patient and field instructor had several additional insightful and appropriate questions especially regarding side effects and I believe I answered all of their questions to their satisfaction. patient and agree with treatment plan. TIME SPENT: 20 minutes 15 > minutes includes but not limited to discussion, counselling and co-ordination~ of care. Discussion with other health care providers, record review, review of lab work, diagnostic tests. Plan discussed extensively with patient. All the questions answered today. Thank you for the opportunity to be involved in the care of Mr. Kevin Lambert Billing Level: Return visit 3 MAN FLORES, ONC Jul 05, 2018 11:36
[2018-07-05 13:30] VITALS: BP 104/64
[2018-07-11 09:26] VITALS: BP 113/62
--- NOTE | 2018-07-11 18:07 | ONCOLOGY FOLLOW UP NOTE ---
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 INTERIM HISTORY Mr. Brown returns to clinic for a followup visit today. He is accompanied by his . He reports that in general things are going pretty well. He has completed six weekly Taxol infusions, and he continues to feel that treatment has been tolerable. He does have some various symptoms that he wants to discuss today. These include some very mild numbness of the tips of his fingers that has not been particularly bothersome or progressive. He has noticed a change in sensation in the heel of his right foot, but he is working with Physical Therapy, and this has not yet become a problem. He has had some heartburn that has been controlled. He has an irritating sore on the left side of his tongue that he asked to me to take a look at. His bowel habits have been pretty stable, and he denies any urinary symptoms. He has had no shortness of breath, chest pain, or productive cough. He has noticed no skin changes. 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 REVIEW OF SYSTEMS Otherwise negative, and all systems reviewed. CURRENT MEDICATIONS 1. Ativan p.r.n. 2. Zofran p.r.n. 3. Compazine p.r.n. 4. Prilosec OTC. 5. Docusate p.r.n. 6. MiraLAX p.r.n. 7. Lipitor. 8. Multivitamin. 9. Glucosamine chondroitin. 10. Vitamin D3. 11. Brea-3 fish oil. ALLERGIES AUGMENTIN. SOCIAL HISTORY The patient has worked as an sports attorney for years. He does not smoke. There is no history of illicit drug use. He has one or two alcoholic beverages per day. FAMILY HISTORY His mother was diagnosed with breast cancer at age 50 to 55. He has a younger brother as well as two sons and a daughter who are otherwise healthy. VITAL SIGNS Temperature is 97.9, blood pressure 113/62, heart rate 87, respirations 16, oxygen saturation is 98% on room air. Weight is 98.5 kg. PHYSICAL EXAMINATION GENERAL: The patient is alert and oriented times three, in no apparent distress, sitting in the exam room chair. HEENT: Anicteric sclerae. He does have what appears to be a slight ulcer/sore over the left lateral tongue. There is no significant erythema. NEUROLOGIC: Grossly nonfocal, and his gait is normal. EXTREMITIES: No edema, clubbing, or cyanosis. SKIN: A rash over his forearms bilaterally. LABORATORY DATA Laboratory studies are reviewed per the [facility] record. ASSESSMENT AND PLAN Stage IIB muveopkq-apnzjcct-axxovczt invasive ductal carcinoma of left breast. Fausto continues on adjuvant weekly Taxol. He has completed six weekly infusions, and he has six more to go. In general, he is tolerating adjuvant therapy with expected, but modest toxicity. We spent time reviewing his laboratories today, and he has had some expected cytopenias, but none that have limited his therapy. He has had some early and mild peripheral neuropathy that has been less than problematic. I will prescribe him some BMX solution for his mouth sores. He has gained a bit of weight, and we discussed the importance of regular physical activity, although he continues to work with Physical Therapy. We moved on to discuss our plan moving forward for completion of 12 weekly cycles of Taxol. When the time comes, we will refer to Radiation Oncology for adjuvant radiation therapy considerations. I will plan to see him during my next visit to [place], and he will follow up here in two weeks with Ayde Palacios, nurse practitioner. Fausto and his had several additional questions for me today, and I believe I answered all their questions to their satisfaction. I spent a total of 30 minutes of time [id number] with the patient today, and 25 minutes of this was spent in direct counseling and coordination of care. JOSS
[2018-07-12 09:23] VITALS: BP 126/68
[2018-07-12] MEDS: LIDOCAINE/SOD BICARB 8.4% SYR ID PRN (09:39)
[2018-07-12] MEDS: NS(*) 0.9% 500 ML BAG 500 ML IV PRN (09:39)
[2018-07-12] MEDS: FAMOTIDINE 10 MG/ML SDV IV PRN (10:03)
[2018-07-12] MEDS: DEXAMETHASONE SOD PHOS 10MG/ML IVP PRN (10:05)
[2018-07-12] MEDS: diphenhydrAMINE 50 MG/ML VIAL IVP PRN (10:25)
[2018-07-12] MEDS: HEPARIN FLSH (PORT) 500 UN/5ML IVP PRN (12:17)
[2018-07-12 12:21] VITALS: BP 108/67
[2018-07-19 09:01] VITALS: BP 113/79
[2018-07-19] MEDS: NS(*) 0.9% 500 ML BAG 500 ML IV PRN (09:13)
[2018-07-19] MEDS: LIDOCAINE/SOD BICARB 8.4% SYR ID PRN (09:13)
[2018-07-19] MEDS: FAMOTIDINE 10 MG/ML SDV IV PRN (10:04)
[2018-07-19] MEDS: DEXAMETHASONE SOD PHOS 10MG/ML IVP PRN (10:04)
--- NOTE | 2018-07-19 10:18 | Oncology Progress Note ---
History of Present Illness Evaluation Evaluation Date: Jul 19, 2018 Evaluation Time: 09:40 Primary Care Provider Primary Care Provider: Bull Burris MD Accompanied by Accompanied by: Self Last seen by : Cecilia 07/11/2018 Chief Complaint Chief Complaint Follow up management of Chemotherapy administration for Stage IIB, worcpbyq-cuhjjbgl-zizvxemt invasive ductal carcinoma of left male breast. Treatment Treatment 04/06/18 Initiated Doxorubicin and Cyclophosphamide followed by Neulasta injections. Chemo is to occur every 2 weeks for 4 cycles followed by a change of frequency to Q2 weeks infusion 05/31/2018 Cycle#1 paclitaxel 1x/week for 12 weeks. 06/07/2018 Cycle#2 paclitaxel 06/14/2018 Cycle#3 paclitaxel 06/21/2018 Cycle #4 paclitaxel 06/28/2018 Cycle #5 paclitaxel 07/05/2018 Cycle#6 paclitaxel 07/19/2018 Cycle#8 paclitaxel HPI HPI Mr. Kevin Lambert is a 68 year old male who has Stage IIB, selgtvdr-mjtulbfk-lucfdnwi invasive ductal carcinoma of left male breast Dx: 01/2018. Currently receiving Paclitaxel C8 of 12. s/p left breast mastectomy. He completed adjuvant AC chemotherapy (Doxorubicin and Cyclophosphamide 03/2018) . Patient is seen in the infusion center,for his cycle #8 of paclitaxel. He is tolerating treatment very well with minor manageable expected toxicities. minimal heartburns (on Nexium), loose stools ( Imodium). Patient denies any hoarseness, chronic cough, no chest pain, no sensation of lump in the throat, On physical exam minor skin rash on B/L upper extremities ( on vanicream and traimcinolone) improving. Left tongue oral lesion ( nystatin and oral rinses on board), L breast surgical site clean dry intact. No limited left shoulder range of motion.minimal hyperpigmentation, and minimal tactile sensation of the thumb and index finger nails. These hopefully should resolve upon completion of treatment. He denies any numbness tightness cranial nerves 1-12 grossly intact. He reports no changes in appetite, oral intake is good, except minor change in taste buds alleviated with well seasoned foods, such as bradford, etc... patient is hemodynamically stable and afebrile. Denies SOB, cardiac type chest pain, no abdominal pain,no nausea vomiting diarrhea, no constipation, no dark stools, no bruising no night sweats chills no fevers, patient reports no changes or bladder pattern. He feels less fatigue this week tired this week but he continues to be active and on the Go. 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 Diagnostic Studies Result Diagram: 07/19/1890907/19/1810 PMH Patient History: FH: breast cancer MOTHER Social/Occupational History Social History: Social History This is a 68 Yr old White male, he is M and has [] Children Hx Smoking: Yes Smoking Status: Former Smoker Allergies & Medications Allergies: Coded Allergies: amoxicillin (Verified Allergy, Intermediate, ELEVATED LIVER ENZYMES, 04/15/09) clavulanic acid (Verified Allergy, Intermediate, ELEVATED LIVER ENZYMES, 04/15/09) Home Meds Active Scripts Docusate Sodium (DOCUSATE SODIUM) 100 Mg Capsule, 1 CAP PO BID, #30 CAPSULE 0 Refills Prov:BULL BURRIS MD 02/09/18 Reported Medications Nystatin 100,000 Unit/Gm Top Powder (NYSTATIN 100,000 UNIT/GM TOP POWDER) 15 Gm Powder, 15 GM TP, TUBE 07/11/18 Potassium Chloride (K-TAB) 10 Meq Tablet.er, 10 MEQ PO 07/11/18 Pegfilgrastim (NEULASTA) 6 Mg/0.6 Ml Disp.syrin, 6 MG SQ Every 2 weeks x 4 cycles - first cycle 04/07/18 04/06/18 Cyclophosphamide (CYCLOPHOSPHAMIDE) 500 Mg Soln, 1330 MG IV 600 mg/m2 every 2 weeks x 4 cycles - cycle 1 04/06/18 04/06/18 Doxorubicin Hcl (DOXORUBICIN HCL) 50 Mg/25 Ml Soln, 133 MG IV 60 mg/m2 every 2 weeks x 4 cycles - cycle 1 on 04/06/18 04/06/18 Lorazepam (ATIVAN) 0.5 Mg Tablet, 0.5 MG PO Q4-6H PRN for NAUSEA May take 0.5 to 1 mg every 6 hours 04/06/18 Ondansetron (ZOFRAN ODT) 4 Mg Tab.rapdis, 8 MG PO Q8H PRN for NAUSEA, TAB.ARTIE 04/06/18 Prochlorperazine Maleate (Compazine) 10 Mg Tablet, 10 MG PO PRN PRN for NAUSEA 04/06/18 Omeprazole Magnesium (PRILOSEC OTC) 20 Mg Tablet.dr, 1 TAB PO QDAY, TAB 03/14/18 Atorvastatin Calcium (LIPITOR) 10 Mg Tablet, 0.5 TAB PO QODAY, TAB 02/06/18 Calc/D3/Mag/Zn/Pressing Machine Tender/Christophe/Coxsackie (CALCIUM 600 MG PLUS VIT D TAB) 1 Each Tablet, 1 EACH PO QDAY 02/06/18 Glucosam & Chondroit-Mv & Min3 (GLUCOTEN CAPLET) 1 Each Tablet, 1 EACH PO QDAY 02/06/18 Cholecalciferol (Vitamin D3) (VITAMIN D3) 1,000 Unit Tablet, 1000 UNIT PO QDAY, TAB 02/06/18 [place]-3/Dha/Epa/Fish Oil (Fish Oil 1,000 mg Softgel) 1,000 Mg (120 Mg-180 Mg) Capsule, 1 TAB PO QDAY 02/06/18 Multivitamin (MULTIVITAMINS) 1 Each Capsule, 1 EACH PO QDAY, CAPSULE 02/06/18 Review of Systems Constitution: Denies Appetite/Weight Change, Denies Fever/Chills/Sweating, Denies Recent Infection, Denies Other HEENT: No EARS: Tinnitus, No NOSE: Nasal Discharge, No THROAT: Sore Throat, No EYES: Dipolpia, No EARS: Hearing Problems, No NOSE: Epistaxis; THROAT: Mouth Ulcers (left tongue oral lesion); No EYES: Vision Change; OTHER Respiratory: No Cough, No Expectoration, No Hemoptysis, No Shortness of Breath, No OTHER Cardiovascular: No Chest Pain, No Orthopnea, No Edema, No Palpitations, No OTHER Gastrointestinal: No Nausea, No Vomitting, No Diarrehea, No Constipation; Heart Burn; No Swallowing Difficulties, No Abdominal Pain, No Other Gentiourinary: No Hematuria, No Dysuria, No Nocturia, No Other Musculoskeletal: No Muscle Pain, No Joint Pain, No Bone Pain, No Other Hematological: No Bleeding, No Weakness, No Enlarged Lyph Nodes, No Bruising, No Fatigue, No Other Skin: Skin Rash Psychiatric: No Anxiety, No Depression, No Other Vital Signs Vital Signs Temperature: 96.8 Pulse: 105 BP Systolic: 113 BP Diastolic: 79 Respiratory Rate: 18 O2 SAT: 95 O2 Delivery: Height (feet) Height (inches) 74.25 Weight lb: 211 Weight oz: Weight Kg (Onesimo): Pain: 0 ECOG-0 Physical Exam General: Looks Stable, Well Developed, Well Nourished, Other HEENT: HEAD:Atraumatic Neck: Supple Lungs: Clear to Auscultation, Percussion Bilaterally Heart: Regular Rate and Rhythm Abdomen: Soft and Nontender; No Hepatosplenomegaly, No Masses, No Other Extremities: No Cyanosis, No Clubbing, No Edema, No Other Lymphatics: No Peripheral Lymphadenopathy, No Other Psychiatric: Mood appears normal, Affect appears normal Skin: Skin Rashes Breast: No No Masses, No No Nipple Discharge, No No Skin Changes, No Other Assessment and Plan Assessment and Plan Mr. Kevin Lambert is a 68 year old male who has Stage IIB, aynwagcm-zwbtpyzq-pisnvbom invasive ductal carcinoma of left male breast Dx: 01/2018. Currently receiving Paclitaxel C8 of 12. s/p left breast mastectomy. He completed adjuvant AC chemotherapy (Doxorubicin and Cyclophosphamide 03/2018) . Patient is seen in the infusion center,for his cycle #8 of paclitaxel. He is tolerating treatment very well with minor manageable expected toxicities. Patient requested to have his Lipid panel checked today, we will go ahead an honor that. DIAGNOSTIC DATA within acceptable parameters, reviewed on NeGoBuY ANC of 2.2; WBC of 3.4 1. Stage IIB, wudrtmed-aebgqizt-cypmxwzn status [ER+] invasive ductal carcinoma of left male breast Dx: 01/2018. Malignant neoplasm of upper-outer quadrant of left male breast Estrogen receptor positive status [ER+], s/p left breast mastectomy. Laboratory results within acceptable parameters, discussed extensively with patient. We will administration of Paclitaxel cycle#6 today. he continues to tolerate treatment very well with minimal expected side effects.. 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 There is a potential increased risk for male breast cancer and prostate cancer with this mutation, Dr. Brooks recommended discussing Genetic Counselor in [place] with Pamela Flower. patient did this. 2. Anticipating treatment induced Dehydration. patient to increase fluid intake, and may need IV fluid hydration PRN once per week during treatment. 3 Constipation/Diarrhea acute on chronic.. Well managed, Patient to continue with bowel regimen using Colace one tab by mouth twice a day; Senokot 8.6 mg to take 2 tabs by mouth at bedtime; MiraLAX to take 17.5 g 3 times a day; and patient was at educated to back off stool softeners A [place] 3 bowel movements per day. 4. GERD. taking Prisolosec OTC, and Nexium one tab Po BID during treatment. Patient denies any hoarseness,chronic cough, no chest pain, no sensation of lump in the throat. 5. Runny nose/Watery eyes. resolving. Patient reports this is minor and he is dealing with it. We hope this to resolve. Upon completion of treatment. 6. Skin rash/hyperpigmentation of fingernails . Improving, denies itchiness, nor pain. triamcinolone+ vanicream 50/50 ratio on board to affected areas PRN. minimal hyperpigmentation, and minimal tactile sensation on the finger nails. These hopefully should resolve upon completion of treatment. 7.Chemo induced neuropathy of hands. continue to use stress relief tennis ball, and PT along with reflexology type of massage to stimulate circulation. 8. Mucositis. Improving, left tongue lesion, nystatin on board. instructed tho rough oral care and continue to do mouth rinses with baking soda. per nutrition packet. CHRONIC - Hypercholesterolemia well controlled . Lipid panel checked today, unremarkable. - R knee patellofemoral syndrome; patient is on Physical therapy - L Achilles tendinopathy. well controlled with Physical therapy PLAN #1 proceed with administration of paclitaxel C8/D1per orders on. WEEKLY LABS CBC,CMP, add Mag Q 2 weeks. #3 follow-up with M.D./APAP per protocol #4 Patient may use Nystatin 4ml Po TID ; aloe vera juice for swish and spit, and thorough oral care including instruction on Nutrition packet rinse with baking soda for Ppfx mucositis. #5Patient to continue to apply Compound cream triamcinolone+ vanicream 50/50 ratio to affected areas PRN. to wear long sleeves and sunscreen when outdoors #6.Patient to call cancer center with any issues or concerns Education, patient and chief psychologist instructed to go to ER IMMEDIATELY, and or call Clinic if any SOB, fevers, chills, fever, cardiac type chest pain, blee ding, excessive bruising, headaches, blurry vision, and pain unrelieved by medication. Patient and chief psychologist had several additional insightful and appropriate questions especially regarding side effects and I believe I answered all of their questions to their satisfaction. patient and agree with treatment plan. TIME SPENT: 20 minutes 15 > minutes includes but not limited to discussion, counselling and co-ordination~ of care. Discussion with other health care providers, record review, review of lab work, diagnostic tests. Plan discussed extensively with patient. All the questions answered today. Thank you for the opportunity to be involved in the care of Mr. Kevin Lambert Billing Level: Return visit 3 MAN FLORES, ONC Jul 19, 2018 10:18
[2018-07-19] MEDS: diphenhydrAMINE 50 MG/ML VIAL IVP PRN (10:54)
[2018-07-19 12:24] VITALS: BP 116/69
[2018-07-19] MEDS: HEPARIN FLSH (PORT) 500 UN/5ML IVP PRN (12:27)
[2018-07-26 09:05] VITALS: BP 102/74
[2018-07-26] MEDS: NS(*) 0.9% 500 ML BAG 500 ML IV PRN (09:21)
[2018-07-26] MEDS: LIDOCAINE/SOD BICARB 8.4% SYR ID PRN (09:21)
[2018-07-26] MEDS: FAMOTIDINE 10 MG/ML SDV IV PRN (10:10)
[2018-07-26] MEDS: DEXAMETHASONE SOD PHOS 10MG/ML IVP PRN (10:13)
[2018-07-26] MEDS: diphenhydrAMINE 50 MG/ML VIAL IVP PRN (10:42)
[2018-07-26 12:14] VITALS: BP 121/66
[2018-07-26] MEDS: HEPARIN FLSH (PORT) 500 UN/5ML IVP PRN (14:03)
[2018-08-02 09:04] VITALS: BP 101/69
[2018-08-02] MEDS: NS(*) 0.9% 500 ML BAG 500 ML IV PRN (09:17)
[2018-08-02] MEDS: LIDOCAINE/SOD BICARB 8.4% SYR ID PRN (09:17)
[2018-08-02] MEDS: DEXAMETHASONE SOD PHOS 10MG/ML IVP PRN (10:04)
[2018-08-02] MEDS: FAMOTIDINE 10 MG/ML SDV IV PRN (10:05)
--- NOTE | 2018-08-02 10:15 | Oncology Progress Note ---
History of Present Illness Evaluation Evaluation Date: Aug 02, 2018 Evaluation Time: 10:00 Primary Care Provider Primary Care Provider: Bull Burris MD Accompanied by Accompanied by: Self Last seen by : Cecilia 07/11/2018 Chief Complaint Chief Complaint Follow up management of C10/D1 paclitaxel for Stage IIB, hgdyukme-ociyhzae-wnddsldl invasive ductal Treatment Treatment 04/06/18 Initiated Doxorubicin and Cyclophosphamide followed by Neulasta injections. Chemo is to occur every 2 weeks for 4 cycles followed by a change of frequency to Q2 weeks infusion 05/31/2018 Cycle#1 paclitaxel 1x/week for 12 weeks. 06/07/2018 Cycle#2 paclitaxel 06/14/2018 Cycle#3 paclitaxel 06/21/2018 Cycle #4 paclitaxel 06/28/2018 Cycle #5 paclitaxel 07/05/2018 Cycle#6 paclitaxel 07/19/2018 Cycle#8 paclitaxel 08/01/2018 Cycle#10 paclitaxel HPI HPI Mr. 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 Currently receiving Paclitaxel C10 of 12. s/p left breast mastectomy. He completed adjuvant AC chemotherapy (Doxorubicin and Cyclophosphamide 03/2018) . Patient is seen in the infusion center,for his cycle #10 of paclitaxel. He is tolerating treatment very well with minor manageable expected toxicities. He reports increase neuropathy on hands and feet, minimal hyperpigmentation, and nail bed changes, minimal heartburns (on Nexium), loose stools ( Imodium). Patient denies any hoarseness, chronic cough, no chest pain, no sensation of lump in the throat, On physical exam minor skin rash on B/L upper extremities ( on vanicream and traimcinolone) improving. Left tongue oral lesion ( nystatin and oral rinses on board), L breast surgical site clean dry intact. No limited left shoulder range of motion. These hopefully should resolve upon completion of treatment. He denies any numbness tightness cranial nerves 1-12 grossly intact. He reports no changes in appetite, oral intake is good, except minor change in taste buds alleviated with well seasoned foods, such as bradford, etc... patient is hemodynamically stable and afebrile. Denies SOB, cardiac type chest pain, no abdominal pain,no nausea vomiting diarrhea, no constipation, no dark stools, no bruising no night sweats chills no fevers, patient reports no changes or bladder pattern. He continues to feels less fatigue and takes a little bit longer to recover after chemo on consecutive rounds, he is doing very well overall, he continues to be active and on the Go. Significant PMH of history of hypercholesterolemia; family history of breast cancer; R knee patellofemoral syndrome; and recent L Achilles tendinopathy Diagnostic Studies Result Diagram: 08/02/1890908/02/18909 PMH Patient History: FH: breast cancer MOTHER Social/Occupational History Social History: Social History This is a 68 Yr old White male, he is M and has [] Children Hx Smoking: Yes Smoking Status: Former Smoker Allergies & Medications Allergies: Coded Allergies: amoxicillin (Verified Allergy, Intermediate, ELEVATED LIVER ENZYMES, 04/15/09) clavulanic acid (Verified Allergy, Intermediate, ELEVATED LIVER ENZYMES, 04/15/09) Home Meds Active Scripts Docusate Sodium (DOCUSATE SODIUM) 100 Mg Capsule, 1 CAP PO BID, #30 CAPSULE 0 Refills Prov:BULL BURRIS MD 02/09/18 Reported Medications Nystatin 100,000 Unit/Gm Top Powder (NYSTATIN 100,000 UNIT/GM TOP POWDER) 15 Gm Powder, 15 GM TP, TUBE 07/11/18 Potassium Chloride (K-TAB) 10 Meq Tablet.er, 10 MEQ PO 07/11/18 Pegfilgrastim (NEULASTA) 6 Mg/0.6 Ml Disp.syrin, 6 MG SQ Every 2 weeks x 4 cycles - first cycle 04/07/18 04/06/18 Cyclophosphamide (CYCLOPHOSPHAMIDE) 500 Mg Soln, 1330 MG IV 600 mg/m2 every 2 weeks x 4 cycles - cycle 1 04/06/18 04/06/18 Doxorubicin Hcl (DOXORUBICIN HCL) 50 Mg/25 Ml Soln, 133 MG IV 60 mg/m2 every 2 weeks x 4 cycles - cycle 1 on 04/06/18 04/06/18 Lorazepam (ATIVAN) 0.5 Mg Tablet, 0.5 MG PO Q4-6H PRN for NAUSEA May take 0.5 to 1 mg every 6 hours 04/06/18 Ondansetron (ZOFRAN ODT) 4 Mg Tab.rapdis, 8 MG PO Q8H PRN for NAUSEA, TAB.ARTIE 04/06/18 Prochlorperazine Maleate (Compazine) 10 Mg Tablet, 10 MG PO PRN PRN for NAUSEA 04/06/18 Omeprazole Magnesium (PRILOSEC OTC) 20 Mg Tablet.dr, 1 TAB PO QDAY, TAB 03/14/18 Atorvastatin Calcium (LIPITOR) 10 Mg Tablet, 0.5 TAB PO QODAY, TAB 02/06/18 Calc/D3/Mag/Zn/Mop Maker/Christophe/[place] (CALCIUM 600 MG PLUS VIT D TAB) 1 Each Tablet, 1 EACH PO QDAY 02/06/18 Glucosam & Chondroit-Mv & Min3 (GLUCOTEN CAPLET) 1 Each Tablet, 1 EACH PO QDAY 02/06/18 Cholecalciferol (Vitamin D3) (VITAMIN D3) 1,000 Unit Tablet, 1000 UNIT PO QDAY, TAB 02/06/18 [place]-3/Dha/Epa/Fish Oil (Fish Oil 1,000 mg Softgel) 1,000 Mg (120 Mg-180 Mg) Capsule, 1 TAB PO QDAY 02/06/18 Multivitamin (MULTIVITAMINS) 1 Each Capsule, 1 EACH PO QDAY, CAPSULE 02/06/18 Review of Systems Constitution: Denies Appetite/Weight Change, Denies Fever/Chills/Sweating, Edgar es Recent Infection, Denies Other HEENT: No EARS: Tinnitus, No NOSE: Nasal Discharge, No THROAT: Sore Throat, No EYES: Dipolpia, No EARS: Hearing Problems, No NOSE: Epistaxis; THROAT: Mouth Ulcers (left tongue oral lesion); No EYES: Vision Change; OTHER Respiratory: No Cough, No Expectoration, No Hemoptysis, No Shortness of Breath, No OTHER Cardiovascular: No Chest Pain, No Orthopnea, No Edema, No Palpitations, No OTHER Gastrointestinal: No Nausea, No Vomitting, No Diarrehea, No Constipation; Heart Burn; No Swallowing Difficulties, No Abdominal Pain, No Other Gentiourinary: No Hematuria, No Dysuria, No Nocturia, No Other Musculoskeletal: No Muscle Pain, No Joint Pain, No Bone Pain, No Other Hematological: No Bleeding, No Weakness, No Enlarged Lyph Nodes, No Bruising, No Fatigue, No Other Skin: Skin Rash Psychiatric: No Anxiety, No Depression, No Other Vital Signs Vital Signs Temperature: 97.6 Pulse: 105 BP Systolic: 121 BP Diastolic: 66 Respiratory Rate: 16 O2 SAT: 94 O2 Delivery: Height (feet) Height (inches) 74.25 Weight lb: 211 Weight oz: Weight Kg (Onesimo): Pain: 1 ECOG-0 Physical Exam General: Looks Stable, Well Developed, Well Nourished, Other HEENT: HEAD:Atraumatic Neck: Supple Lungs: Clear to Auscultation, Percussion Bilaterally Heart: Regular Rate and Rhythm Abdomen: Soft and Nontender; No Hepatosplenomegaly, No Masses, No Other Extremities: No Cyanosis, No Clubbing, No Edema, No Other Lymphatics: No Peripheral Lymphadenopathy, No Other Psychiatric: Mood appears normal, Affect appears normal Skin: Skin Rashes Breast: No No Masses, No No Nipple Discharge, No No Skin Changes, No Other Assessment and Plan Assessment and Plan Mr. Kevin Lambert is a 68 year old male who has Stage IIB, est gpvnq-dqswpque-xuzwftlb invasive ductal carcinoma of left male breast Dx: 01/2018. Currently receiving Paclitaxel C8 of 12. s/p left breast mastectomy. He completed adjuvant AC chemotherapy (Doxorubicin and Cyclophosphamide 03/2018) . Patient is seen in the infusion center,for his cycle #10 of paclitaxel, 2 more rounds to go, then he will initiate radiation therapy. He is tolerating treatment very well with minor manageable expected toxicities. DIAGNOSTIC DATA within acceptable parameters, reviewed on Chat& (ChatAnd) ANC of 2.2; WBC of 3.3 1. Stage IIB, thcysoyv-cyqlnxjp-gotvedzp status [ER+] invasive ductal carcinoma of left male breast Dx: 01/2018. Malignant neoplasm of upper-outer quadrant of left male breast Estrogen receptor positive status [ER+], s/p left breast mastectomy. Laboratory results within acceptable parameters, discussed extensively with patient. We will administration of Paclitaxel cycle#10 today. he continues to tolerate treatment very well with minimal expected side effects. 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 There is a potential increased risk for male breast cancer and prostate cancer with this mutation, Dr. Brooks recommended discussing Genetic Counselor in [place] with Pamela Flower. judy sandra did this. 1.a. peripheral Neuropathy hands and feet. In the setting of taxol administration. we will initiate gabapentin 300mg Po BID X15 days. and monitor for treatment response. 2. Anticipating treatment induced Dehydration. patient to increase fluid intake, and may need IV fluid hydration PRN once per week during treatment. 3 Constipation/Diarrhea acute on chronic.. Well managed, Patient to continue with bowel regimen using Colace one tab by mouth twice a day; Senokot 8.6 mg to take 2 tabs by mouth at bedtime; MiraLAX to take 17.5 g 3 times a day; and patient was at educated to back off stool softeners A [place] 3 bowel movements per day. 4. GERD. taking Prisolosec OTC, and Nexium one tab Po BID during treatment. Patient denies any hoarseness,chronic cough, no chest pain, no sensation of lump in the throat. 5. Runny nose/Watery eyes. resolving. Patient reports this is minor and he is dealing with it. We hope this to resolve Upon completion of treatment. 6. Skin rash/hyperpigmentation of fingernails . Improving, denies itchiness, nor pain. triamcinolone+ vanicream 50/50 ratio on board to affected areas PRN. minimal hyperpigmentation, and minimal tactile sensation on the finger nails. These hopefully should resolve upon completion of treatment. 7.Chemo induced neuropathy of hands. continue to use stress relief tennis ball, and PT along with reflexology type of massage to stimulate circulation. 8. Mucositis. Improving, left tongue lesion, nystatin on board. instructed thorough oral care and continue to do mouth rinses with baking soda. per nutri tion packet. CHRONIC - Hypercholesterolemia well controlled . Lipid panel checked today, unremarkable. - R knee patellofemoral syndrome; patient is on Physical therapy - L Achilles tendinopathy. well controlled with Physical therapy PLAN #1 proceed with administration of paclitaxel C8/D1per orders on. WEEKLY LABS CBC,CMP, add Mag Q 2 weeks. #3 follow-up with M.D./APAP per protocol #4 Patient may use Nystatin 4ml Po TID ; aloe vera juice for swish and spit, and thorough oral care including instruction on Nutrition packet rinse with baking soda for Ppfx mucositis. #5Patient to continue to apply Compound cream triamcinolone+ vanicream 50/50 ratio to affected areas PRN. to wear long sleeves and sunscreen when outdoors #6 patient to initiate gabapentin 300mg Po BID #7 Patient to call cancer center with any issues or concerns Education, patient and implementation lead instructed to go to ER IMMEDIATELY, and or call Clinic if any SOB, fevers, chills, fever, cardiac type chest pain, bleeding, excessive bruising, headaches, blurry vision, and pain unrelieved by medication. Patient and implementation lead had several additional insightful and appropriate questions especially regarding side effects and I believe I answered all of their questions to their satisfaction. patient and agree with treatment plan. TIME SPENT: 20 minutes 15 > minutes includes but not limited to discussion, counselling and co-ordination~ of care. Discussion with other health care providers, record review, review of lab work, diagnostic tests. Plan discussed extensively with patient. All the questions answered today. Thank you for the opportunity to be involved in the care of Mr. Kevin Lambert Billing Level: Return visit 3 MAN FLORES, ONC Aug 02, 2018 10:15
[2018-08-02] MEDS: diphenhydrAMINE 50 MG/ML VIAL IVP PRN (10:40)
[2018-08-02 12:04] VITALS: BP 126/94
[2018-08-02] MEDS: HEPARIN FLSH (PORT) 500 UN/5ML IVP PRN (12:22)
[2018-08-09 09:10] VITALS: BP 119/84
[2018-08-09] MEDS: LIDOCAINE/SOD BICARB 8.4% SYR ID PRN (09:22)
[2018-08-09] MEDS: NS(*) 0.9% 500 ML BAG 500 ML IV PRN (09:23)
[2018-08-09] MEDS: FAMOTIDINE 10 MG/ML SDV IV PRN (10:03)
[2018-08-09] MEDS: DEXAMETHASONE SOD PHOS 10MG/ML IVP PRN (10:04)
--- NOTE | 2018-08-09 10:34 | Oncology Progress Note ---
History of Present Illness Evaluation Evaluation Date: Aug 09, 2018 Evaluation Time: 10:00 Primary Care Provider Primary Care Provider: Bull Burris MD Accompanied by Accompanied by: Self Last seen by : Cecilia 07/11/2018 Chief Complaint Chief Complaint Follow up management of C11/D1 paclitaxel for Stage IIB, pmavrmtk-xvektfgw-iisedmxr invasive ductal Treatment Treatment 04/06/18 Initiated Doxorubicin and Cyclophosphamide followed by Neulasta injections. Chemo is to occur every 2 weeks for 4 cycles followed by a change of frequency to Q1 week infusion 05/31/2018 Cycle#1 paclitaxel 1x/week for 12 weeks. 06/07/2018 Cycle#2 paclitaxel 06/14/2018 Cycle#3 paclitaxel 06/21/2018 Cycle #4 paclitaxel 06/28/2018 Cycle #5 paclitaxel 07/05/2018 Cycle#6 paclitaxel 07/19/2018 Cycle#8 paclitaxel 08/01/2018 Cycle#10 paclitaxel 08/09/2018 Cycle#11 paclitaxel HPI HPI Mr. Kevin Lambert is a 68 year old male who has Stage IIB, xzajcigt-ndodwvmm-bamkueww invasive ductal carcinoma of left male breast Dx: . Currently on Paclitaxel C11 of 12. s/p left breast mastectomy. He completed adjuvant AC chemotherapy (Doxorubicin and Cyclophosphamide 03/2018) . Patient is seen in the infusion center,for his cycle #11 of paclitaxel. He is tolerating treatment very well with minor manageable expected toxicities. He reports significant improvement on his neuropathy on hands and feet, ( started on gabapentin 300mg Po BID).minimal hyperpigmentation, and nail bed changes, minimal heartburns (on Nexium), loose stools ( Imodium). Patient denies any hoarseness, chronic cough, no chest pain, no sensation of lump in the throat, On physical exam minor skin rash on B/L upper extremities ( on vanicream and traimcinolone) improving. Left tongue oral lesion ( nystatin and oral rinses on board), L breast surgical site clean dry intact. No limited left shoulder range of motion. These hopefully should resolve upon completion of treatment. He denies any numbness tightness cranial nerves 1-12 grossly intact. He reports no changes in appetite, oral intake is good, except minor change in taste buds alleviated with well seasoned foods, such as [place], etc... patient is hemodynamically stable and afebrile. Denies SOB, cardiac type chest pain, no abdominal pain,no nausea vomiting diarrhea, no constipation, no dark stools, no bruising no night sweats chills no fevers, patient reports no changes or bladder pattern. He continues to feels less fatigue and takes a little bit longer to recover after chemo on consecutive rounds, he is doing very well overall, he continues to be active and on the Go. He has one more cycle of Taxol, then he will take a mini vacation prior to starting XRT, patient saw RAd/Onc Dr. Sukh leal Monday. Significant PMH of history of hypercholesterolemia; family history of breast cancer; R knee patellofemoral syndrome; and recent L Achilles tendinopathy Diagnostic Studies Result Diagram: 08/09/1891008/09/18910 PMH Patient History: FH: breast cancer MOTHER Social/Occupational History Social History: Social History This is a 68 Yr old White male, he is M and has [] Children Hx Smoking: Yes Smoking Status: Former Smoker Allergies & Medications Allergies: Coded Allergies: amoxicillin (Verified Allergy, Intermediate, ELEVATED LIVER ENZYMES, 04/15/09) clavulanic acid (Verified Allergy, Intermediate, ELEVATED LIVER ENZYMES, 04/15/09) Home Meds Active Scripts Docusate Sodium (DOCUSATE SODIUM) 100 Mg Capsule, 1 CAP PO BID, #30 CAPSULE 0 Refills Prov:BULL BURRIS MD 02/09/18 Reported Medications Nystatin 100,000 Unit/Gm Top Powder (NYSTATIN 100,000 UNIT/GM TOP POWDER) 15 Gm Powder, 15 GM TP, TUBE 07/11/18 Potassium Chloride (K-TAB) 10 Meq Tablet.er, 10 MEQ PO 07/11/18 Pegfilgrastim (NEULASTA) 6 Mg/0.6 Ml Disp.syrin, 6 MG SQ Every 2 weeks x 4 cycles - first cycle 04/07/18 04/06/18 Cyclophosphamide (CYCLOPHOSPHAMIDE) 500 Mg Soln, 1330 MG IV 600 mg/m2 every 2 weeks x 4 cycles - cycle 1 04/06/18 04/06/18 Doxorubicin Hcl (DOXORUBICIN HCL) 50 Mg/25 Ml Soln, 133 MG IV 60 mg/m2 every 2 weeks x 4 cycles - cycle 1 on 04/06/18 04/06/18 Lorazepam (ATIVAN) 0.5 Mg Tablet, 0.5 MG PO Q4-6H PRN for NAUSEA May take 0.5 to 1 mg every 6 hours 04/06/18 Ondansetron (ZOFRAN ODT) 4 Mg Tab.rapdis, 8 MG PO Q8H PRN for NAUSEA, TAB.ARTIE 04/06/18 Prochlorperazine Maleate (Compazine) 10 Mg Tablet, 10 MG PO PRN PRN for NAUSEA 04/06/18 Omeprazole Magnesium (PRILOSEC OTC) 20 Mg Tablet.dr, 1 TAB PO QDAY, TAB 03/14/18 Atorvastatin Calcium (LIPITOR) 10 Mg Tablet, 0.5 TAB PO QODAY, TAB 02/06/18 Calc/D3/Mag/Zn/Child Protection Specialist/Christophe/[place] (CALCIUM 600 MG PLUS VIT D TAB) 1 Each Tablet, 1 EACH PO QDAY 02/06/18 Glucosam & Chondroit-Mv & Min3 (GLUCOTEN CAPLET) 1 Each Tablet, 1 EACH PO QDAY 02/06/18 Cholecalciferol (Vitamin D3) (VITAMIN D3) 1,000 Unit Tablet, 1000 UNIT PO QDAY, TAB 02/06/18 [place]-3/Dha/Epa/Fish Oil (Fish Oil 1,000 mg Softgel) 1,000 Mg (120 Mg-180 Mg) Capsule, 1 TAB PO QDAY 02/06/18 Multivitamin (MULTIVITAMINS) 1 Each Capsule, 1 EACH PO QDAY, CAPSULE 02/06/18 Review of Systems Constitution: Denies Appetite/Weight Change, Denies Fever/Chills/Sweating, Denies Recent Infection, Denies Other HEENT: No EARS: Tinnitus, No NOSE: Nasal Discharge, No THROAT: Sore Throat, No EYES: Dipolpia, No EARS: Hearing Problems, No NOSE: Epistaxis; THROAT: Mouth Ulcers (left tongue oral lesion); No EYES: Vision Change; OTHER Respiratory: No Cough, No Expectoration, No Hemoptysis, No Shortness of Breath, No OTHER Cardiovascular: No Chest Pain, No Orthopnea, No Edema, No Palpitations, No OTHER Gastrointestinal: No Nausea, No Vomitting, No Diarrehea, No Constipation; Heart Burn; No Swallowing Difficulties, No Abdominal Pain, No Other Gentiourinary: No Hematuria, No Dysuria, No Nocturia, No Other Musculoskeletal: No Muscle Pain, No Joint Pain, No Bone Pain, No Other Hematological: No Bleeding, No Weakness, No Enlarged Lyph Nodes, No Bruising, No Fatigue, No Other Skin: Skin Rash Psychiatric: No Anxiety, No Depression, No Other Vital Signs Vital Signs Temperature: 97.0 Pulse: 120 BP Systolic: 119 BP Diastolic: 84 Respiratory Rate: 17 O2 SAT: 96 O2 Delivery: Height (feet) Height (inches) 74.25 Weight lb: 211 Weight oz: Weight Kg (Onesimo): Pain: 0 ECOG-0 Physical Exam General: Looks Stable, Well Developed, Well Nourished, Other HEENT: HEAD:Atraumatic Neck: Supple Lungs: Clear to Auscultation, Percussion Bilaterally Heart: Regular Rate and Rhythm Abdomen: Soft and Nontender; No Hepatosplenomegaly, No Masses, No Other Extremities: No Cyanosis, No Clubbing, No Edema, No Other Lymphatics: No Peripheral Lymphadenopathy, No Other Psychiatric: Mood appears normal, Affect appears normal Skin: Skin Rashes Breast: No No Masses, No No Nipple Discharge, No No Skin Changes, No Other Assessment and Plan Assessment and Plan Mr. Kevin Lambert is a 68 year old male who has Stage IIB, wbwvgcqn-qekgrlxg-sddccjyv invasive ductal carcinoma of left male breast Dx: 01/2018. Currently on Paclitaxel C11 of 12. s/p left breast mastectomy. He completed adjuvant AC chemotherapy (Doxorubicin and Cyclophosphamide 03/2018) . Patient is seen in the infusion center,for his cycle #11 of paclitaxel. He is tolerating treatment very well with minor manageable expected toxicities. He reports significant improvement on his neuropathy on hands and feet, ( started on gabapentin 300mg Po BID).minimal hyperpigmentation, and nail bed changes, minimal heartburns (on Nexium), loose stools ( Imodium). Patient denies any hoarseness, chronic cough, no chest pain, no sensation of lump in the throat, On physical exam minor skin rash on B/L upper extremities ( on vanicream and traimcinolone) improving. Left tongue oral lesion ( nystatin and oral rinses on board), L breast surgical site clean dry intact. No limited left shoulder range of motion. Overall he is doing very well. we reviwed abs, and reinforced reverse isolation precautions while he out in public. He has a very good understanding of the rationale, and agrees with the plan. DIAGNOSTIC DATA within acceptable parameters, reviewed on iPrint ANC of 2.8; WBC of 3.7 1. Stage IIB, nwyhhxqo-xdisftxx-isluyqol status [ER+] invasive ductal carcinoma of left male breast Dx: 01/2018. Malignant neoplasm of upper-outer quadrant of left male breast Estrogen receptor positive status [ER+], s/p left breast mastectomy. Laboratory results within acceptable parameters, discussed e xtensively with patient. We will administration of Paclitaxel cycle#11 today. he continues to tolerate treatment very well with minimal expected side effects. 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 There is a potential increased risk for male breast cancer and prostate cancer with this mutation, Dr. Tuttle recommended discussing Genetic Counselor in [place] with Pamela Flower. patient did this. 1.a. peripheral Neuropathy hands and feet. In the setting of taxol administration. reports significant improvement on neuropathy. we will continue gabapentin 300mg Po BID [id number] . and monitor for treatment response. 2. Anticipating treatment induced Dehydration. patient to increase fluid intake, and may need IV fluid hydration PRN once per week during treatment. 3 Constipation/Diarrhea acute on chronic.. Well managed, Patient to continue with bowel regimen using Colace one tab by mouth twice a day; Senokot 8.6 mg to take 2 tabs by mouth at bedtime; MiraLAX to take 17.5 g 3 times a day; and patient was at educated to back off stool softeners A [place] 3 bowel movements per day. 4. GERD. taking Prisolosec OTC, and Nexium one tab Po BID during treatment. Patient denies any hoarseness,chronic cough, no chest pain, no sensation of lump in the throat. 5. Runny nose/Watery eyes. resolving. Patient reports this is minor and he is dealing with it. We hope this to resolve Upon completion of treatment. 6. Skin rash/hyperpigmentation of fingernails . Improving, denies itchiness, nor pain. triamcinolone+ vanicream 50/50 ratio on board to affected areas PRN. minimal hyperpigmentation, and minimal tactile sensation on the finger nails. These hopefully should resolve upon completion of treatment. 7.Chemo induced neuropathy of hands. continue to use stress relief tennis ball, and PT along with reflexology type of massage to stimulate circulation. 8. Mucositis. Improving, left tongue lesion, nystatin on board. instructed thorough oral care and continue to do mouth rinses with baking soda. per nutrition packet. CHRONIC - Hypercholesterolemia well controlled . Lipid panel checked today, unremarkable. - R knee patellofemoral syndrome; patient is on Physical therapy - L Achilles tendinopathy. well controlled with Physical therapy PLAN #1 proceed with administration of paclitaxel C11/D1per orders on. WEEKLY LABS CBC,CMP, add Mag Q 2 weeks. #3 follow-up with M.D./APAP per protocol #4 Patient may use Nystatin 4ml Po TID ; aloe vera juice for swish and spit, and thorough oral care including instruction on Nutrition packet rinse with baking soda for Ppfx mucositis. #5Patient to continue to apply Compound cream triamcinolone+ vanicream 50/50 ratio to affected areas PRN. to wear long sleeves and sunscreen when outdoors #6 patient to continue gabapentin 300mg Po BIDx 30pills #7 We will use Benadryl PO capsule today for pre-med regimen, due to IV shortage. #8 Continue Physical Therapy as prescribed. #9Patient to call cancer center with any issues or concerns Education, patient and dermatology physician assistant instructed to go to ER IMMEDIATELY, and or call Clinic if any SOB, fevers, chills, fever, cardiac type chest pain, bleedi ng, excessive bruising, headaches, blurry vision, and pain unrelieved by medication. Patient and dermatology physician assistant had several additional insightful and appropriate questions especially regarding side effects and I believe I answered all of their questions to their satisfaction. patient and agree with treatment plan. TIME SPENT: 20 minutes 15 > minutes includes but not limited to discussion, counselling and co-ordination~ of care. Discussion with other health care providers, record review, review of lab work, diagnostic tests. Plan discussed extensively with patient. All the questions answered today. Thank you for the opportunity to be involved in the care of Mr. Kevin Lambert Billing Level: Return visit 3 CC Copies to: ESTEBAN TUTTLE MD ; MAN FLORES-Emelyn, ONC Aug 09, 2018 10:34
[2018-08-09] MEDS: HEPARIN FLSH (PORT) 500 UN/5ML IVP PRN (10:56)
[2018-08-09 12:23] VITALS: BP 119/77
[2018-08-16] MEDS: FAMOTIDINE 10 MG/ML SDV IV PRN (13:49)
[2018-08-16] MEDS: DEXAMETHASONE SOD PHOS 10MG/ML IVP PRN (13:50)
[2018-08-16] MEDS: diphenhydrAMINE 50 MG/ML VIAL IVP PRN (14:11)
[2018-08-16] MEDS: NS(*) 0.9% 500 ML BAG 500 ML IV PRN (14:15)
[2018-08-16] MEDS: LIDOCAINE/SOD BICARB 8.4% SYR ID PRN (14:15)
[2018-08-16] MEDS: HEPARIN FLSH (PORT) 500 UN/5ML IVP PRN (14:15)
--- NOTE | 2018-08-16 15:24 | Oncology Progress Note ---
History of Present Illness Evaluation Evaluation Date: Aug 16, 2018 Evaluation Time: 13:30 Primary Care Provider Primary Care Provider: Bull Burris MD Accompanied by Accompanied by: Self Last seen by : Cecilia 07/11/2018 Chief Complaint Chief Complaint Follow up management of C12/D1 paclitaxel for Stage IIB, [id number]-[id number] invasive ductal Treatment Treatment 04/06/18 Initiated Doxorubicin and Cyclophosphamide followed by Neulasta injections. Chemo is to occur every 2 weeks for 4 cycles followed by a change of frequency to Q1 week infusion 05/31/2018 Cycle#1 paclitaxel 1x/week for 12 weeks. 06/07/2018 Cycle#2 paclitaxel 06/14/2018 Cycle#3 paclitaxel 06/21/2018 Cycle #4 paclitaxel 06/28/2018 Cycle #5 paclitaxel 07/05/2018 Cycle#6 paclitaxel 07/19/2018 Cycle#8 paclitaxel 08/01/2018 Cycle#10 paclitaxel 08/09/2018 Cycle#11 paclitaxel 08/16/2018 Cycle#12 paclitaxel HPI HPI Mr. Kevin Lambert is a 68 year old male who has Stage IIB, pebjwyjz-xfuzobxu-wvjpsjoh invasive ductal carcinoma of left male breast Dx: 01/2018. Currently on Paclitaxel C11 of 12. s/p left breast mastectomy. He completed adjuvant AC chemotherapy (Doxorubicin and Cyclophosphamide 03/2018) . Patient is seen in the infusion center,for his last cycle #12 of paclitaxel. He has tolerated treatment very well with minor manageable expected toxicities. He reports significant improvement on his neuropathy on hands and feet, ( started on gabapentin 300mg Po BID).minimal hyperpigmentation, and nail bed changes, minimal heartburns (on Nexium), loose stools ( Imodium). Patient denies any hoarseness, chronic cough, no chest pain, no sensation of lump in the throat, On physical exam minor skin rash on B/L upper extremities ( on vanicream and traimcinolone) improving. No limited left shoulder range of motion. These hopefully should resolve upon completion of treatment. He denies any numbness tightness cranial nerves 1-12 grossly intact. He reports no changes in appetite, oral intake is good, except minor change in taste buds alleviated with well seasoned foods, such as bradford, etc... patient is hemodynamically stable a nd afebrile. Denies SOB, cardiac type chest pain, no abdominal pain,no nausea vomiting diarrhea, no constipation, no dark stools, no bruising no night sweats chills no fevers, patient reports no changes or bladder pattern. He will be taking few holiday treatment break, visiting [place]. Diagnostic Studies Result Diagram: 08/16/18 1310 08/16/18 1310 PMH Patient History: FH: breast cancer MOTHER Social/Occupational History Social History: Social History This is a 68 Yr old White male, he is M and has [] Children Hx Smoking: Yes Smoking Status: Former Smoker Allergies & Medications Allergies: Coded Allergies: amoxicillin (Verified Allergy, Intermediate, ELEVATED LIVER ENZYMES, 04/15/09) clavulanic acid (Verified Allergy, Intermediate, ELEVATED LIVER ENZYMES, 04/15/09) Home Meds Active Scripts Docusate Sodium (DOCUSATE SODIUM) 100 Mg Capsule, 1 CAP PO BID, #30 CAPSULE 0 Refills Prov:BULL BURRIS MD 02/09/18 Reported Medications Nystatin 100,000 Unit/Gm Top Powder (NYSTATIN 100,000 UNIT/GM TOP POWDER) 15 Gm Powder, 15 GM TP, TUBE 07/11/18 Potassium Chloride (K-TAB) 10 Meq Tablet.er, 10 MEQ PO 07/11/18 Pegfilgrastim (NEULASTA) 6 Mg/0.6 Ml Disp.syrin, 6 MG SQ Every 2 weeks x 4 cycles - first cycle 04/07/18 04/06/18 Cyclophosphamide (CYCLOPHOSPHAMIDE) 500 Mg Soln, 1330 MG IV 600 mg/m2 every 2 weeks x 4 cycles - cycle 1 04/06/18 04/06/18 Doxorubicin Hcl (DOXORUBICIN HCL) 50 Mg/25 Ml Soln, 133 MG IV 60 mg/m2 every 2 weeks x 4 cycles - cycle 1 on 04/06/18 04/06/18 Lorazepam (ATIVAN) 0.5 Mg Tablet, 0.5 MG PO Q4-6H PRN for NAUSEA May take 0.5 to 1 mg every 6 hours 04/06/18 Ondansetron (ZOFRAN ODT) 4 Mg Tab.rapdis, 8 MG PO Q8H PRN for NAUSEA, TAB.ARTIE 04/06/18 Prochlorperazine Maleate (Compazine) 10 Mg Tablet, 10 MG PO PRN PRN for NAUSEA 04/06/18 Omeprazole Magnesium (PRILOSEC OTC) 20 Mg Tablet.dr, 1 TAB PO QDAY, TAB 4/25/18 Atorvastatin Calcium (LIPITOR) 10 Mg Tablet, 0.5 TAB PO QODAY, TAB 02/06/18 Calc/D3/Mag/Zn/[employer]/[place] (CALCIUM 600 MG PLUS VIT D TAB) 1 Each Tablet, 1 EACH PO QDAY 02/06/18 Glucosam & Chondroit-Mv & Min3 (GLUCOTEN CAPLET) 1 Each Tablet, 1 EACH PO QDAY 02/06/18 Cholecalciferol (Vitamin D3) (VITAMIN D3) 1,000 Unit Tablet, 1000 UNIT PO QDAY, TAB 02/06/18 Chavies-3/Dha/Epa/Fish Oil (Fish Oil 1,000 mg Softgel) 1,000 Mg (120 Mg-180 Mg) Capsule, 1 TAB PO QDAY 02/06/18 Multivitamin (MULTIVITAMINS) 1 Each Capsule, 1 EACH PO QDAY, CAPSULE 02/06/18 Review of Systems Constitution: Denies Appetite/Weight Change, Denies Fever/Chills/Sweating, Denies Recent Infection, Denies Other HEENT: No EARS: Tinnitus, No NOSE: Nasal Discharge, No THROAT: Sore Throat, No EYES: Dipolpia, No EARS: Hearing Problems, No NOSE: Epistaxis; THROAT: Mouth Ulcers (left tongue oral lesion); No EYES: Vision Change; OTHER Respiratory: No Cough, No Expectoration, No Hemoptysis, No Shortness of Breath, No OTHER Cardiovascular: No Chest Pain, No Orthopnea, No Edema, No Palpitations, No OTHER Gastrointestinal: No Nausea, No Vomitting, No Diarrehea, No Constipation; Heart Burn; No Swallowing Difficulties, No Abdominal Pain, No Other Gentiourinary: No Hematuria, No Dysuria, No Nocturia, No Other Musculoskeletal: No Muscle Pain, No Joint Pain, No Bone Pain, No Other Hematological: No Bleeding, No Weakness, No Enlarged Lyph Nodes, No Bruising, No Fatigue, No Other Skin: Skin Rash Psychiatric: No Anxiety, No Depression, No Other Vital Signs Vital Signs Temperature: 97.6 Pulse: 90 BP Systolic: 119 BP Diastolic: 77 Respiratory Rate: 16 O2 SAT: 95 O2 Delivery: Height (feet) Height (inches) 74.25 Weight lb: 211 Weight oz: Weight Kg (Onesimo): Pain: 0 Physical Exam General: Looks Stable, Well Developed, Well Nourished, Other HEENT: HEAD:Atraumatic Neck: Supple Lungs: Clear to Auscultation, Percussion Bilaterally Heart: Regular Rate and Rhythm Abdomen: Soft and Nontender; No Hepatosplenomegaly, No Masses, No Other Extremities: No Cyanosis, No Clubbing, No Edema, No Other Lymphatics: No Peripheral Lymphadenopathy, No Other Psychiatric: Mood appears normal, Affect appears normal Skin: Skin Rashes Breast: No No Masses, No No Nipple Discharge, No No Skin Changes, No Other Assessment and Plan Assessment and Plan Mr. Kevin Lambert is a 68 year old male who has Stage IIB, ckqeqrdu-sqhihtqs-euhjadaf invasive ductal carcinoma of left male breast Dx: 01/2018. Currently on Paclitaxel C11 of 12. s/p left breast mastectomy. He completed adjuvant AC chemotherapy (Doxorubicin and Cyclophosphamide 03/2018) . Patient is seen in the infusion center,for his last cycle #12 of paclitaxel. He has tolerated treatment very well with minor manageable expected toxicities. He reports significant improvement on his neuropathy on hands and feet, ( started on gabapentin 300mg Po BID).minimal hyperpigmentation, and nail bed changes, minimal heartburns (on Nexium),minor constipation. On a bowel regimen. Patient denies any hoarseness, chronic cough, no chest pain, no sensation of lump in the throat, On physical exam minor skin rash on B/L upper extremities ( on vanicream and traimcinolone) improving. No limited left shoulder range of motion. DIAGNOSTIC DATA within acceptable parameters, reviewed on [employer] ANC of 3.1; WBC of 4.3 ; Na 136. 1. Stage IIB, tcciquqm-kzoijuop-vcuygbtb status [ER+] invasive ductal carcinoma of left male breast Dx: 01/2018. Malignant neoplasm of upper-outer quadrant of l eft male breast Estrogen receptor positive status [ER+], s/p left breast mastectomy. Laboratory results within acceptable parameters, discussed extensively with patient. We will administration of Paclitaxel cycle#12 LAST CYCLE today. he continues to tolerate treatment very well with minimal expected side effects. 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 There is a potential increased risk for male breast cancer and prostate cancer with this mutation, Dr. Brooks recommended discussing Genetic Counselor in [place] with Pamela Flower. patient did this. 1.a. peripheral Neuropathy hands and feet. In the setting of taxol administration. reports significant improvement on neuropathy. we will continue gabapentin 300mg Po BID [id number] . and monitor for treatment response. 2. Anticipating treatment induced Dehydration. patient to increase fluid intake, and may need IV fluid hydration PRN once per week during treatment. 3 Constipation/Diarrhea acute on chronic.. Well managed, Patient to continue with bowel regimen using Colace one tab by mouth twice a day; Senokot 8.6 mg to take 2 tabs by mouth at bedtime; MiraLAX to take 17.5 g 3 times a day; and patient was at educated to back off stool softeners if more than 3 bowel movements per day. 4. GERD. taking Prilosec OTC, and Nexium one tab Po BID during treatment. Patient denies any hoarseness,chronic cough, no chest pain, no sensation of lump in the throat. 5. Runny nose/Watery eyes. resolving. Patient reports this is minor and he is dealing with it. We hope this to resolve Upon completion of treatment. 6. Skin rash/hyperpigmentation of fingernails . Improving, denies itchiness, nor pain. triamcinolone+ vanicream 50/50 ratio on board to affected areas PRN. minimal hyperpigmentation, and minimal tactile sensation on the finger nails. These hopefully should resolve upon completion of treatment. 7.Chemo induced neuropathy of hands. continue to use stress relief tennis ball, and PT along with reflexology type of massage to stimulate circulation. 8. Mucositis. Improving, left tongue lesion, nystatin on board. instructed thorough oral care and continue to do mouth rinses with baking soda. per nutrition packet. CHRONIC - Hypercholesterolemia well controlled . Lipid panel checked today, unrem arkable. - R knee patellofemoral syndrome; patient is on Physical therapy - L Achilles tendinopathy. well controlled with Physical therapy PLAN #1 proceed with administration of paclitaxel C12/D1per orders on. WEEKLY LABS CBC,CMP, add Mag Q 2 weeks. #3 follow-up with M.D./APAP per protocol #4 Patient may use Nystatin 4ml Po TID ; aloe vera juice for swish and spit, and thorough oral care including instruction on Nutrition packet rinse with baking soda for Ppfx mucositis. #5Patient to continue to apply Compound cream triamcinolone+ vanicream 50/50 ratio to affected areas PRN. to wear long sleeves and sunscreen when outdoors #6 patient to continue gabapentin 300mg Po BIDx 30pills #7 Continue Physical Therapy as prescribed. #8 Patient inquire about the flu shot today. in the setting of active Chemo administration , we will hold vaccination today. patient may receive flu shot on his next Clinic visit 2-3 weeks, if counts are within acceptable parameters. #9 Patient to call cancer center with any issues or concerns Education, patient and basin operator instructed to go to ER IMMEDIATELY, and or call Clinic if any SOB, fevers, chills, fever, cardiac type chest pain, bleeding, excessive bruising, headaches, blurry vision, and pain unrelieved by medication. Patient and basin operator had several additional insightful and appropriate questions especially regarding side effects and I believe I answered all of their questions to their satisfaction. patient and agree with treatment plan. TIME SPENT: 20 minutes 15 > minutes includes but not limited to discussion, counselling and co-ordination~ of care. Discussion with other health care providers, record review, review of lab work, diagnostic tests. Plan discussed extensively with patient. All the questions answered today. Thank you for the opportunity to be involved in the care of Mr. eKvin Lambert. Billing Level: Return visit 3 MAN FLORES, ONC Aug 16, 2018 15:24
[2018-08-16 15:35] VITALS: BP 115/73
[2018-08-22 09:18] VITALS: BP 120/69
--- NOTE | 2018-08-22 14:13 | ONCOLOGY FOLLOW UP NOTE ---
EVENT DATE: August 22, 2018 REASON FOR FOLLOWUP Stage IIB, ER-positive invasive ductal carcinoma of left breast, ongoing adjuvant chemotherapy. INTERIM HISTORY Mr. Brown returns to clinic for a followup visit today. He is accompanied by his . Since our last visit, he has completed his adjuvant chemotherapy. He is happy to be done. He does say that the last month has been the hardest month to date. He reports some ongoing fatigue. He also reports numbness and tingling in his fingers as well as his feet. He has noticed a slight change in sensation around the ankles as well. He has had no falls. He continues to work with Physical Therapy. His appetite is good, and his weight has been stable. He does note that his fingernails have changed in character quite a bit, as have the nails of the first two toes on each foot. The nails have somewhat, but are not particularly painful. He has noticed a slight odor as well. REVIEW OF SYSTEMS Otherwise negative, and all systems were reviewed. CURRENT MEDICATIONS 1. Prilosec p.r.n. 2. H2 lloyd p.r.n. 3. Atorvastatin. 4. Calcium/vitamin D. 5. Glucosamine/chondroitin. 6. Crawford-3 fish oil. 7. Multivitamin. ALLERGIES AUGMENTIN. 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 He does not smoke. There is no history of illicit drug use. He has one or two alcoholic beverages per day. FAMILY HISTORY His mother was diagnosed with breast cancer at age 50 to 55. He has a younger brother as well as two sons and a daughter who are otherwise healthy. VITAL SIGNS Temperature is 96.6, blood pressure 120/69, heart rate is 117, respirations 16, oxygen saturation is 94% on room air. Weight is 97.3 kg. PHYSICAL EXAMINATION GENERAL: The patient is alert and oriented times three, in no apparent distress, sitting in the exam room chair. He appears healthy and is in good spirits. HEENT: Anicteric sclerae. NEUROLOGIC: Grossly nonfocal, and his gait is normal. EXTREMITIES: No edema, clubbing, or cyanosis. His nails are somewhat discolored and slightly from the underlying nail bed. There is no purulent discharge. SKIN: Otherwise unremarkable. LABORATORY STUDIES Reviewed per the [facility] record. ASSESSMENT AND PLAN Stage IIB ER-positive invasive ductal carcinoma of left breast. Fausto has completed adjuvant chemotherapy. He has visited with Dr. Luz in Radiation Oncology, and the plan is to get started with adjuvant radiation in the next two to three weeks. We spent time discussing the possibility of some lingering toxicity from chemotherapy to include peripheral neuropathy as well as fatigue. In general, Fausto tolerated adjuvant chemotherapy remarkably well. He continues to work with Physical Therapy, and I have encouraged him to keep doing this. I will have computer network support specialist contact him about management of his fingernails. We discussed peripheral neuropathy management. He has not seen much benefit from gabapentin, and we will stop this. We did discuss the merits of trying Cymbalta at low dose. He is interested, and I will write him a prescription for 20 mg p.o. daily. This dose can be increased if needed. I will plan to see Fausto back in six weeks or sooner if there are questions or concerns. He and his did have several additional questions for me today, and I believe I answered all of these to their satisfaction. I spent a total of 30 minutes of time [id number] with the patient today, and 25 minutes of this was spent in direct counseling and coordination of care. JOSS
[2018-08-31 10:14] VITALS: BP 108/81
[2018-08-31] MEDS: HEPARIN FLSH (PORT) 500 UN/5ML IVP PRN (10:37)
[2018-08-31] MEDS: LIDOCAINE/SOD BICARB 8.4% SYR ID PRN (10:37)
[2018-08-31 10:46] LABS: PLATELET COUNT, AUTOMATED 286 K/uL (150-450)
[~2018-09-05] VITALS: Ht 188.6 cm; Wt 97.3 kg
[~2018-09-05 09:15] MED LIST changes: +ALTEPLASE RECOMB 2 MG VIAL IVP PRN; +DEXTROSE 5%(*) 100 ML BAG 100 ML IVPB PRN; +DUL20 PO; +ESOM40CA42 PO; +NS 0.9% IV ONE; +NS 0.9% IVPB ONE; +NS(*) 0.9% 100 ML BAG 100 ML IVPB PRN; +PACLITAXEL IV ONE; +PACLITAXEL IVPB ONE; +POLY17PO25 PO; +WATER FOR INJ,STERILE 20 ML IVP PRN; +diphenhydrAMINE 25 MG CAP PO PRN
[2018-09-05 09:33] VITALS: BP 117/66
[2018-09-05] MEDS ORDERED: INFLUENZA VIRUS VAC 0.5ML SYR IM ONLY ONE (09:45)
== END 2018-09-11 ==
LOC: SPU 09:15
PROVIDERS: ATTEND Internal Medicine Medical Oncology
DX: Z51.11 Encounter for antineoplastic chemotherapy (principal); C50.922 Malignant neoplasm of unspecified site of left male breast; C77.9 Secondary and unspecified malignant neoplasm of lymph node, unspecified; Z17.0 Estrogen receptor positive status [ER+]; R53.83 Other fatigue; R20.0 Anesthesia of skin; R20.2 Paresthesia of skin; Z23 Encounter for immunization
CPT/HCPCS: 36591; 83735; 84153; 85025; 85027; 90471; 96361; 96367; 96375; 96411; 96413; G0463; J1100; J1200; J1642; J3490; J7040; J7050; J9267; Q0163; Q2037; 82040; 82247; 82310; 82374; 82435; 82465; 82565; 82947; 83718; 84075; 84132; 84155; 84295; 84450; 84460; 84478; 84520; 90674; 99212; 99214; S0028

== ENCOUNTER → 2018-10-08 | Outpatient (RCR) | payer MEDICARE, OTHER ==
--- NOTE | 2018-07-10 10:56 | PT PLAN OF CARE ---
Physician: Cliff Brooks MD Patient is being seen: 2x/Week Therapist: Ladi Carrillo, PT, DPT, CLT Medical Diagnosis: Breast Cancer Treatment Diagnosis: Breast Cancer Date of Onset: 04/06/18 Date of Initial Evaluation: 04/06/18 Date patient was last seen: 07/10/18 Number of treatments: 21 Number of cancellations/No shows: 1 INTERVENTIONS: Manual Therapy/STM/MET Strengthening/condition Ice/Heat Range of Motion Spinal Stabilization Ultrasound Stretching Iontophoresis Neuromuscular Re-ed Closed Chain Program Electrical Stim Posture/Body mechanics Gait Trg/Balance Trg Biofeedback Home Exercise Program Mech./Manual Traction Therapeutic Activities Pelvic Floor GOALS: In 2 MO pt will maintain a FACT-G score of 80/108 or more for maintenance of well-being with ADL's. MET In 2 MO pt will improve R Quad VMO activation with SAQ to 10/10 contractions for improved function and mobility with ambulation and recreational activities. MET In 4 MO pt will improve L shoulder ROM to equal to that of the contralateral side for improved function with ADL's. MET In 4 MO pt will maintain ECOG performance status of grade 1 or less for maintained function with ADL's. MET In 6 MO pt will maintain a FACT-G score of 80/108 or more for maintenance of well-being with ADL's. PATIENT'S GOAL: Maintain function with ADL's. Status of Patient's Goals: 345 MET, 1/5 In Progress Patient Compliance: Excellent Prognosis: Good Reasons for continuing therapy: Fausto continues to progress with B UE ROM and mobility with decreased soft tissue and scar tissue restrictions. Strength of both the UE and LE also shows progress with full UE strength and good quad activation on the R knee resulting in improved patellar tracking. Pt no longer has symptoms with ambulation up and down stairs and is able to hike without knee pain or L Achilles pain. Pt shows slight increase in neuropathy side-effects from treatment in the feet resulting in decreased proprioception. Further PT to continue to maintain gains in UE ROM with continued chemo and progression towards breast and axillary radiation on the L. PT to also focus on increased proprioception to maintain balance and functional mobility with ADL's. Posture: Pt has B rounded shoulders posture. ROM: UE ROM: Flexion: L 140, R 145, Abd: L 138, R 140, ER: B 80, IR: L T6 level, R T8 level. Strength: UE MMT: 5/5 in all major motions Elbow: Flexion/Ext: 5/5 Palpation: Pt has slight axillary cording present. Special Tests: Pt has equal medial and lateral quad activation in 10/10 quad sets. Mobility: ECOG Performance Status: Grade 0 Outcome Measure: FACT-G (EVAL): PWB: , SWB: , EWB: , FWB: , Total: 107/108 FACT-G (05/22/18) : PWB: , SWB: , EWB: , FWB: , Total: 101/108 FACT-G (05/22/18) : PWB: , SWB: , EWB: , FWB: , Total: 103/108 If you have any questions or concerns, please feel free to contact me at [phone]. Thank you, Ladi Carrillo, PT, DPT, CLT MTDD
--- NOTE | 2018-08-17 10:29 | PT PLAN OF CARE ---
Physician: Cliff Brooks MD Patient is being seen: 2x/Week Therapist: Ladi Carrillo, PT, DPT, CLT Medical Diagnosis: Breast Cancer Treatment Diagnosis: Breast Cancer Date of Onset: 04/06/18 Date of Initial Evaluation: 04/06/18 Date patient was last seen: 08/16/18 Number of treatments: 31 Number of cancellations/No shows: 1 INTERVENTIONS: Manual Therapy/STM/MET Strengthening/condition Ice/Heat Range of Motion Spinal Stabilization Ultrasound Stretching Iontophoresis Neuromuscular Re-ed Closed Chain Program Electrical Stim Posture/Body mechanics Gait Trg/Balance Trg Biofeedback Home Exercise Program Mech./Manual Traction Therapeutic Activities Pelvic Floor GOALS: In 2 MO pt will maintain a FACT-G score of 80/108 or more for maintenance of well-being with ADL's. MET In 2 MO pt will improve R Quad VMO activation with SAQ to 10/10 contractions for improved function and mobility with ambulation and recreational activities. MET In 4 MO pt will improve L shoulder ROM to equal to that of the contralateral side for improved function with ADL's. MET In 4 MO pt will maintain ECOG performance status of grade 1 or less for maintained function with ADL's. MET In 6 MO pt will maintain a FACT-G score of 80/108 or more for maintenance of well-being with ADL's. PATIENT'S GOAL: Maintain function with ADL's. Status of Patient's Goals: 3/5 MET, 1/5 In Progress Patient Compliance: Excellent Prognosis: Good Reasons for continuing therapy: Fausto is to finish his last round of chemotherapy at this time with side effects accumulated including fatigue, neuropathy and onset of slight weakness in the quads accumulated over the last couple rounds. Pt recently developed plantar fascitis on the R foot likely secondary to neuropathy with associated arch collapse. Despite ongoing treatment pt has continued with gains in UE mobility and function following surgery with equal motion in both shoulders. Further PT is to continue to maintain shoulder mobility with ongoing radiation therapy. Additionally further PT to continue to improve neuropathy as well as correct plantar fascitis and foot posture secondary to neuropathy. Posture: Pt has B rounded shoulders posture. ROM: UE ROM: Flexion: L 145, R 145, Abd: L 138, R 140, ER: B 80, IR: L T6 level, R T8 level. Strength: UE MMT: 5/5 in all major motions, LE MMT: 5/5 all major motions Elbow: Flexion/Ext: 5/5 Palpation: Pt has slight axillary cording present. Special Tests: Pt has equal medial and lateral quad activation in 10/10 quad sets. Mobility: ECOG Performance Status: Grade 0 Outcome Measure: FACT-G (EVAL): PWB: , SWB: , EWB: , FWB: , Total: 107/108 FACT-G (05/22/18) : PWB: , SWB: , EWB: , FWB: , Total: 101/108 FACT-G (07/10/18) : PWB: , SWB: , EWB: , FWB: , Total: 103/108 FACT-G (08/16/18) : PWB: , SWB: , EWB: , FWB: , Total: 105/108 If you have any questions or concerns, please feel free to contact me at [phone]. Thank you, Ladi Carrillo, PT, DPT, CLT MTDD
--- NOTE | 2018-09-28 17:42 | PT PLAN OF CARE ---
Physician: Cliff Brooks MD Patient is being seen:3x/wk Therapist: Ladi Carrillo, PT, DPT, CLT & Nellie Maldonado, SPT Medical Diagnosis: Breast Cancer Treatment Diagnosis: Breast Cancer Date of Onset: 04/06/18 Date of Initial Evaluation: 04/06/18 Date patient was last seen: 09/28/18 Number of treatments: 42 Number of cancellations/No shows: 0 INTERVENTIONS: Manual Therapy/STM/MET Strengthening/condition Ice/Heat Range of Motion Spinal Stabilization Ultrasound Stretching Iontophoresis Neuromuscular Re-ed Closed Chain Program Electrical Stim Posture/Body mechanics Gait Trg/Balance Trg Biofeedback Home Exercise Program Mech./Manual Traction Therapeutic Activities Pelvic Floor GOALS: In 2 MO pt will maintain a FACT-G score of 80/108 or more for maintenance of well-being with ADL's. MET In 2 MO pt will improve R Quad VMO activation with SAQ to 10/10 contractions for improved function and mobility with ambulation and recreational activities. MET In 4 MO pt will improve L shoulder ROM to equal to that of the contralateral side for improved function with ADL's. MET In 4 MO pt will maintain ECOG performance status of grade 1 or less for maintained function with ADL's. MET In 6 MO pt will maintain a FACT-G score of 80/108 or more for maintenance of well-being with ADL's. MET PATIENT'S GOAL: Maintain function with ADL's. Status of Patient's Goals: 5/5 MET Patient Compliance: Excellent Prognosis: Good Reasons for continuing PT: Fausto shows good improvements towards regaining L shoulder mobility following development of scar tissue. Pt remains to have slight cording restricting AROM though PROM remains full. Pt shows great progression with strength and stability with no longer any symptoms of patellofemoral syndrome on the L and improved knee alignment. Plantar fascia symptoms show improvement but remain present L>R. Further PT to continue with strengthening and progression towards running for patient goals. PT to also continue to monitor for regression in L UE ROM and side-effects with continued radiation treatment. Posture: Pt has B rounded shoulders posture. ROM: UE ROM: Flexion: L 143, R 151, Abd: L 122, R 138, ER: B 80, IR: L T6 level, R T8 level. Strength: UE MMT: 5/5 in all major motions, LE MMT: 5/5 all major motions excluding PF 4+/5 B. Palpation: Pt has slight axillary cording present. Special Tests: Pt has equal medial and lateral quad activation in 10/10 quad sets. Mobility: ECOG Performance Status: Grade 0 Outcome Measure: FACT-G (EVAL): PWB: , SWB: , EWB: , FWB: , Total: 107/108 FACT-G (05/22/18) : PWB: , SWB: , EWB: , FWB: , Total: 101/108 FACT-G (07/10/18) : PWB: , SWB: , EWB: , FWB: , Total: 103/108 FACT-G (08/16/18) : PWB: , SWB: , EWB: , FWB: , Total: 105/108 FACT-G(09/28/18): PWB: , SWB: , EWB: , FWB: , Total: 107/108 If you have any questions or concerns, please feel free to contact me at [phone]. Thank you, Ladi Carrillo, PT, DPT, CLT Nellie Maldonado, TERRY This physical therapist was present for the entire PT session directing the services, making the skilled judgement, and was not engaged in treating another patient or doing another task at the same time as the treatment. JOSS
[~2018-10-08] MED LIST changes: -ALTEPLASE RECOMB 2 MG VIAL IVP PRN; -DEXTROSE 5%(*) 100 ML BAG 100 ML IVPB PRN; -NS 0.9% IV ONE; -NS 0.9% IVPB ONE; -NS(*) 0.9% 100 ML BAG 100 ML IVPB PRN; -PACLITAXEL IV ONE; -PACLITAXEL IVPB ONE; -WATER FOR INJ,STERILE 20 ML IVP PRN; -diphenhydrAMINE 25 MG CAP PO PRN
== END ==
LOC: PT 07-10 08:19
PROVIDERS: ATTEND Internal Medicine Medical Oncology
DX: C50.922 Malignant neoplasm of unspecified site of left male breast (principal); M22.2X1 Patellofemoral disorders, right knee; M76.62 Achilles tendinitis, left leg; Z90.12 Acquired absence of left breast and nipple

== ENCOUNTER → 2018-10-09 | Outpatient (CLI) | payer MEDICARE, OTHER | LOC: SPU 11:33 | DX: E29.1 Testicular hypofunction (principal) | CPT/HCPCS: 84270; 84403 ==

== ENCOUNTER 2018-10-26 12:05 | Outpatient (RCR) | payer MEDICARE, OTHER ==
[~2018-10-26 12:05] MED LIST changes: +SILV20CR2 TP
== END 2018-11-04 ==
LOC: RAON 12:05
PROVIDERS: ATTEND Radiology Radiation Oncology
DX: Z51.0 Encounter for antineoplastic radiation therapy (principal); C50.922 Malignant neoplasm of unspecified site of left male breast
CPT/HCPCS: 77336; 77412; 77417; 84153; 84270; 84403; 85025; G0463; J1642; 36591; 77280; 77290; 77295; 77300; 77334; 82040; 82247; 82310; 82374; 82435; 82565; 82947; 84075; 84132; 84155; 84295; 84450; 84460; 84520; 99212

== ENCOUNTER 2018-11-15 13:17 | Outpatient (RCR) | payer MEDICARE, OTHER ==
[2018-09-13 08:47] LABS: PLATELET COUNT, AUTOMATED 211 K/uL (150-450)
--- NOTE | 2018-09-13 11:45 | PURVIANCE FOLLOW UP ---
EVENT DATE: September 13, 2018 ON TREATMENT NOTE/PROGRESS NOTE HISTORY The patient is a 68-year-old gentleman diagnosed with a node-positive, ER- positive left breast cancer. The patient is status post modified radical mastectomy and axillary lymph node dissection or sentinel lymph node biopsy which revealed two of six lymph nodes positive. Tumor was urqidvtv-xaqlyjxh-tofulcld, HER2/shannon-negative. The patient complete chemotherapy and presents for post-mastectomy chest wall radiotherapy. SUBJECTIVE The patient on presentation today overall feels well. He has some fatigue. He has no chest wall pain or arm swelling. He is using special care cream to the skin. PHYSICAL EXAMINATION VITAL SIGNS: Documented in the electronic medical record. CHEST: Inspection of the patient's left chest wall: His mastectomy scar is well-healed. He has no erythema along his skin. There is no swelling or induration. ASSESSMENT Node-positive, ER-positive left breast cancer status post modified radical mastectomy with two of six lymph nodes positive. The patient is undergoing post-mastectomy chest wall radiotherapy. PLAN We will continue radiotherapy. The patient has completed three fractions to date of a planned 33-fraction course. MTDD
[2018-10-09] MEDS: LIDOCAINE/SOD BICARB 8.4% SYR ID PRN (11:49)
[2018-10-09] MEDS: HEPARIN FLSH (PORT) 500 UN/5ML IVP PRN (11:49)
[2018-10-09 11:54] LABS: PLATELET COUNT, AUTOMATED 185 K/uL (150-450)
[2018-10-17 08:59] VITALS: BP 109/69
--- NOTE | 2018-10-17 15:36 | ONCOLOGY FOLLOW UP NOTE ---
EVENT DATE: October 17, 2018 REASON FOR FOLLOWUP Stage IIB, ER-positive invasive ductal carcinoma of left breast, ongoing adjuvant chemotherapy. INTERIM HISTORY Mr. Brown returns to clinic for a followup visit today. He is accompanied by his . He reports that things are going pretty well, all things considered. He has initiated adjuvant radiation therapy. He does report some ongoing fatigue and peripheral neuropathy that seems to be improving slowly over time. He reports no fever. His appetite is pretty good, and his weight has been stable. He is staying as active as possible. He has had some skin erythema as anticipated over his left upper chest. He continues to work with Physical Therapy. REVIEW OF SYSTEMS Otherwise negative, and all systems reviewed. CURRENT MEDICATIONS 1. Prilosec p.r.n. 2. H2 lloyd p.r.n. 3. Atorvastatin. 4. Calcium/vitamin D. 5. Glucosamine/chondroitin. 6. [place]-3 fish oil. 7. Multivitamin. ALLERGIES AUGMENTIN. 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 He does not smoke. There is no history of illicit drug use. He has one or two alcoholic beverages per day. FAMILY HISTORY His mother was diagnosed with breast cancer at age 50 to 55. He has a younger brother as well as two sons and a daughter who are otherwise healthy. VITAL SIGNS Temperature is 97.0, blood pressure 109/69, heart rate is 68, respirations 16, oxygen saturation is 97% on room air. Weight is 98.3 kg. PHYSICAL EXAMINATION GENERAL: The patient is alert and oriented times three, in no apparent distress, sitting in the exam room chair. HEENT: Anicteric sclerae. NEUROLOGIC: Grossly nonfocal, and his gait is normal. SKIN: No concerning rash or lesion. EXTREMITIES: No edema, clubbing, or cyanosis. There is no erythema or tenderness to palpation. LABORATORY STUDIES Reviewed per the [facility] record. ASSESSMENT AND PLAN Stage IIB, ER-positive invasive ductal carcinoma of left breast. Fausto has initiated adjuvant radiation therapy. Today, things seem to be going quite well. We spent time discussing his need to complete adjuvant radiation, and the plan will be for him to then take a few weeks' break and then to return to see me to discuss initiation of adjuvant endocrine therapy. I have recommended that he receive tamoxifen. We did discuss use of aromatase inhibitors in male patients with breast cancer, but there is much less data for their use. We discussed potential risks of the tamoxifen today brief as well. Fausto continues to do remarkably well in terms of his quality of life, and I have encouraged him to continue working with Physical Therapy and to be as active as he can. I will plan to see him back in the next couple months or sooner if there are questions or concerns. The patient and his had multiple insightful and appropriate questions for me today, and I believe I answered all their questions to their satisfaction. I spent a total of 30 minutes of time face to face with the patient and his today, and 25 minutes of this were spent in direct counseling and coordination of care. JOSS
[~2018-11-15 13:17] MED LIST changes: +ALTEPLASE RECOMB 2 MG VIAL IVP PRN; +DEXTROSE 5%(*) 100 ML BAG 100 ML IVPB PRN; +NS(*) 0.9% 100 ML BAG 100 ML IVPB PRN; +NS(*) 0.9% 500 ML BAG 500 ML IV PRN; +WATER FOR INJ,STERILE 20 ML IVP PRN
[2018-11-15 13:28] VITALS: BP 114/77
[2018-11-15] MEDS: LIDOCAINE/SOD BICARB 8.4% SYR ID PRN (13:55)
[2018-11-15] MEDS: HEPARIN FLSH (PORT) 500 UN/5ML IVP PRN (13:55)
== END 2018-12-11 ==
LOC: SPU 13:17
PROVIDERS: ATTEND Internal Medicine Medical Oncology
DX: C50.922 Malignant neoplasm of unspecified site of left male breast (principal); C77.9 Secondary and unspecified malignant neoplasm of lymph node, unspecified; Z17.0 Estrogen receptor positive status [ER+]; Z92.21 Personal history of antineoplastic chemotherapy; Z92.3 Personal history of irradiation; R53.83 Other fatigue
CPT/HCPCS: 36415; 36591; 84153; 84270; 84403; 85025; 96523; G0463; J1642; 82040; 82247; 82310; 82374; 82435; 82565; 82947; 84075; 84132; 84155; 84295; 84450; 84460; 84520; 99212

== ENCOUNTER 2019-03-13 12:58 | Outpatient (RCR) | payer MEDICARE, OTHER ==
[2018-12-31 13:30] VITALS: BP 120/71
[2018-12-31 13:48] LABS: PLATELET COUNT, AUTOMATED 183 K/uL (150-450)
[2018-12-31] MEDS: HEPARIN FLSH (PORT) 500 UN/5ML IVP PRN (14:31)
[2018-12-31] MEDS: LIDOCAINE/SOD BICARB 8.4% SYR ID PRN (14:31)
[2019-01-02 11:04] VITALS: BP 106/70
--- NOTE | 2019-01-14 08:16 | ONCOLOGY FOLLOW UP NOTE ---
EVENT DATE: January 02, 2019 REASON FOR FOLLOWUP Stage IIB, ER-positive invasive ductal carcinoma of left breast, status post adjuvant chemotherapy and radiation. INTERIM HISTORY Mr. Brown returns to clinic for a followup visit today. He is accompanied by his . He reports that since completing radiation therapy he has noticed some general improvement in his overall well-being. The radiation was not as difficult as the chemotherapy. He reports no fever. His appetite is pretty good and his weight has been stable. He has been working with PT, getting regular physical activity. He reports no nausea. He has had no changes in bowel or bladder habits. He has noticed some improvement in peripheral neuropathy but it is still noticeable. REVIEW OF SYSTEMS Otherwise negative and all systems reviewed. CURRENT MEDICATIONS 1. Prilosec p.r.n. 2. H2 lloyd p.r.n. 3. Atorvastatin. 4. Calcium/vitamin D. 5. Glucosamine/chondroitin. 6. [place]-3 fish oil. 7. Multivitamin. ALLERGIES AUGMENTIN. 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 He does not smoke. There is no history of illicit drug use. He has one or two alcoholic beverages per day. FAMILY HISTORY His mother was diagnosed with breast cancer at age 50 to 55. He has a younger brother as well as two sons and a daughter who are otherwise healthy. VITAL SIGNS Temperature is 97.2, blood pressure 106/70, heart rate is 70, respirations 16, oxygen saturation is 95% on room air. Weight is 92.9 kg. PHYSICAL EXAMINATION GENERAL: The patient is alert and oriented x3, in no apparent distress, sitting in exam room chair. He is interactive and quite pleasant. He appears healthy. HEENT: Anicteric sclerae. NEUROLOGIC: Grossly nonfocal and his gait is normal. EXTREMITIES: No edema, clubbing or cyanosis. SKIN: No concerning rash or lesion. CHEST AND AXILLARY: Well-healed mastectomy incision and no palpable axillary lymphadenopathy bilaterally. There is no nodularity along the scar. LABORATORY STUDIES Reviewed per the [facility] record. ASSESSMENT AND PLAN Stage IIB, ER-positive invasive ductal carcinoma of left breast. Fausto has now completed adjuvant chemotherapy and radiation. He has done remarkably well. He has some modest lingering toxicity from past treatment but these are all getting better with time. We discussed today that we would expect some further improvement as time goes by. We moved on to discuss the use of Tamoxifen for adjuvant endocrine therapy and now would be a reasonable time to start. He has noticed a bit of tremor, however, and he is interested in getting a neurology referral. He would like to get this figured out before he starts Tamoxifen. This is certainly reasonable. I will refer him to see Dr. Grady in [facility] in neurology. I will plan to see Fausto back for a followup in the next couple of months and we will again address the initiation of adjuvant endocrine therapy. All questions answered today. I spent a total of 30 minutes of time face to face with the patient today and 25 minutes of this was spent in direct counseling and coordination of care. JOSS
[2019-02-14] MEDS: LIDOCAINE/SOD BICARB 8.4% SYR ID PRN (08:28)
[2019-02-14] MEDS: HEPARIN FLSH (PORT) 500 UN/5ML IVP PRN (08:29)
[~2019-03-13 12:58] MED LIST changes: +ASPI-1471 PO
[2019-03-13] MEDS ORDERED: TAMO20TA24 PO (14:01)
[2019-03-13 14:04] VITALS: BP 110/63
--- NOTE | 2019-03-13 16:05 | ONCOLOGY FOLLOW UP NOTE ---
EVENT DATE: March 13, 2019 CHIEF COMPLAINT Patient is here today for followup and evaluation of a painful area noted to the left axilla. This has subsided over the last week, however. INTERIM HISTORY Mr. Brown returns today for followup visit. He has recently noticed some swelling to the left axilla, which he says has decreased over the last week. This improved after physical therapy and massage, though he is concerned due to his history of male left-sided breast cancer as he is status post mastectomy. He reports that since completing radiation therapy, he has noticed some general improvement in his overall well-being. Radiation was not as difficult to tolerate as chemotherapy. He reports that his appetite remains pretty good. He believes his weight is stable. He has not had any fevers, chills, night sweats, or other constitutional symptoms. He continues to work with PT. He is exercising regularly and tells me that he walked two miles this morning prior to our visit today. He has not had any nausea, vomiting, or other bowel changes. No bladder changes. He continues to have some neuropathy in his feet bilaterally, though is noticing some slow improvement. It's still noticeable, however. He is currently on Cymbalta for this, which he believes has helped a bit. He tells me that he saw Dr. Grady with Neurology in [place] today to evaluate his tremor. He was diagnosed with benign essential tremor and was prescribed Inderal. He has not yet started that. Lastly, he has some questions about when to start tamoxifen. Otherwise, he is feeling well. PAST MEDICAL HISTORY FAMILY HISTORY His mother was diagnosed with breast cancer at age 50 to 55. He has a younger brother as well as two sons and a daughter who are otherwise healthy. 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 He does not smoke. There is no history of illicit drug use. He has one or two alcoholic beverages per day. CURRENT MEDICATIONS 1. Prilosec p.r.n. 2. H2 lloyd p.r.n. 3. Atorvastatin. 4. Calcium/vitamin D. 5. Glucosamine/chondroitin. 6. [place]-3 fish oil. 7. Multivitamin. ALLERGIES AUGMENTIN. REVIEW OF SYSTEMS CONSTITUTIONAL: Patient denies any fevers, chills, or night sweats. No recent infections. Energy and appetite have been stable. HEENT: No vision changes or hearing issues. No abnormal nasal drainage. No dysphagia or odynophagia. RESPIRATORY: He denies any cough, shortness of breath, pleuritic chest pain, or hemoptysis. CARDIOVASCULAR: He denies any chest pain. No syncope or presyncope. GASTROINTESTINAL: He denies any abdominal pain, nausea, vomiting, constipation, diarrhea, bright red blood per rectum, or melena. NEUROLOGIC: He has recently noticed a tremor in the hands bilaterally and was just diagnosed with benign essential tremor per Neurology this morning. He will be starting Inderal for this. This began after chemotherapy. It is mostly a nuisance. He denies any headache or seizure-like activity. He continues to experience some peripheral neuropathy, most noticeable in his feet, though this is slowly improving. ENDOCRINE: He denies any heat or cold intolerance. No vasomotor symptoms. Energy level is stable and has been improving since completion of chemotherapy and radiotherapy. He reports that he is sleeping well. PSYCHIATRIC: He denies any severe depression, severe anxiety, suicidal or homicidal ideation. MUSCULOSKELETAL: No focal areas of pain. He has some occasional degenerative- type pains. He is exercising regularly. He continues with PT. BREASTS: Patient is status post left mastectomy. He has some scar tissue at the incision site. Most recently at least for the last couple of weeks, he has noticed some tenderness with mild possible swelling to the left axilla. This apparently improved over the last week. He did have physical therapy recently and tells me this decreased after having this worked on a bit. It is not particularly painful, but is simply noticeable. He has not noticed any lumps, bumps, or suspicious masses or discharge from the right breast. The remainder of a 12-point review of systems is performed today and is otherwise negative. PHYSICAL EXAMINATION VITAL SIGNS: Temperature 97.1, P 88, R 16, BP 110/63, oxygen saturation 93% room air. Currently rates pain level at "0/10." Currently rates fatigue at level zero. GENERAL: In general, this is a pleasant 69-year-old gentleman who appears well hydrated, well nourished, and is in no acute distress. HEAD: Atraumatic, normocephalic. EYES: Sclerae anicteric. NECK: Supple. No lymphadenopathy. RESPIRATORY: Clear breath sounds to auscultation bilaterally. No focal findings. CARDIOVASCULAR: Regular rate and rhythm. No ectopy. ABDOMEN: Soft, nontender, nondistended. Bowel sounds positive x4. DERM: Positive for port wine stain to the left posterior torso near the flank. This is stable. No rash, petechiae, or purpura. EXTREMITIES: No edema. No clubbing or cyanosis. NEUROLOGIC: Patient is awake, alert, oriented x3. He does have a history of peripheral neuropathy, most noticeable to the lower extremities. Gait is steady. BREASTS: Patient is status post left mastectomy. Incision appears well healed. There is some mild fibrosis consistent with scarring to the incision site. There appears to be some mild fibrosity with deep palpation of the left axilla. No freely mobile lymph nodes. There is only mild fibrosis noted along the scar. No major nodularity. Right-sided breast exam reveals no palpable lumps, skin changes, or nipple discharge. PSYCHIATRIC: Mood and affect are appropriate. LABORATORIES No labs today. IMPRESSION AND PLAN This is a pleasant 69-year-old gentleman with stage IIB, ER-positive invasive ductal carcinoma of the left breast. He is status post mastectomy and has now completed adjuvant chemotherapy and radiation. He has done remarkably well. He does have some mild lingering toxicity from past treatment in the form of peripheral neuropathy, but this is also improving with time. This is mostly noticeable to the feet bilaterally and again is improving. He is on Cymbalta for this. He remains on physical therapy. He recently noticed a tremor in his hands bilaterally, and he has now seen Dr. Grady with Neurology in [place]. He has essential tremor and was prescribed Inderal. At his last visit with Dr. Brooks, they discussed the use of tamoxifen as adjuvant endocrine therapy. We did want to give him a bit of time to recover prior to initiating this. He also wanted to have his tremor evaluated before starting tamoxifen. This is certainly reasonable, and patient tells me that he is now ready to begin therapy as long as we agree. He has not had any changes in his health status. He did incidentally note some mild pain and possibly a lump at the left axilla, though in the last week, this his improved with physical therapy. Incidentally, he is overdue for mammogram as his last mammogram was done on 01/30/18. 1. Stage IIB, ER-positive invasive ductal carcinoma of the left breast, status post mastectomy, adjuvant chemotherapy, and radiation, now complete. Endocrine therapy with tamoxifen is the next step. We gave him some time to recover from treatment as well as time to evaluate tremor before starting. During our visit today, we did conduct a formal endocrine therapy teaching session on tamoxifen. He was provided with printed educational materials. We discussed most common side effects at length. I have e-prescribed tamoxifen 20 mg, to take one daily, #30, times one refill, and this was sent electronically to his pharmacy at [facility]. He will start this once he receives the prescription. 2. Left axillary tenderness: Physical exam was largely unremarkable today. There may be some mild scarring to the area, though there is nothing grossly palpable, and there are no freely mobile masses. He is due for a mammogram, however. As such, I have ordered diagnostic mammogram be done as well as a left ultrasound of the axilla. Our office is working to get him scheduled, and this can be done as soon as authorization is done. Mr. Brown verbalized understanding and agrees. 3. He will continue with physical therapy. 4. I have asked the patient to return to clinic in two to three weeks post initiation of tamoxifen for standard toxicity check. 5. Patient will return to clinic in six to eight weeks for followup with his medical oncologist. We can certainly see him sooner in the interim. JOSS
--- NOTE | 2019-03-13 16:38 | ONCOLOGY CHEMO TEACHING ---
DATE OF EVENT: March 13, 2019 DIAGNOSIS Stage IIB, ER-positive invasive ductal carcinoma of the left breast, status post mastectomy, adjuvant chemotherapy, and radiation, now complete. The patient is seen today for endocrine therapy teaching. A total of 60 minutes was spent with him, 100% of which was [id number] counseling. INTERIM HISTORY Mr. Brown returns today for followup visit. He has recently noticed some swelling to the left axilla, which he says has decreased over the last week. This improved after physical therapy and massage, though he is concerned due to his history of male left-sided breast cancer as he is status post mastectomy. He reports that since completing radiation therapy, he has noticed some general improvement in his overall well-being. Radiation was not as difficult to tolerate as chemotherapy. He reports that his appetite remains pretty good. He believes his weight is stable. He has not had any fevers, chills, night sweats, or other constitutional symptoms. He continues to work with PT. He is exercising regularly and tells me that he walked two miles this morning prior to our visit today. He has not had any nausea, vomiting, or other bowel changes. No bladder changes. He continues to have some neuropathy in his feet bilaterally, though is noticing some slow improvement overall. It is still noticeable, however. He is currently on Cymbalta for this, which he believes has helped a bit. He tells me that he did see Dr. Grady with Neurology in [place] today to evaluate his tremor. He was diagnosed with benign essential tremor and was prescribed Inderal. He has not yet started that. Lastly, he has some questions about when to start tamoxifen. Plan was to start that after some time for recovery and after visit with Neurology. Otherwise, he is feeling well. PAST MEDICAL HISTORY FAMILY HISTORY His mother was diagnosed with breast cancer at age 50 to 55. He has a younger brother as well as two sons and a daughter who are otherwise healthy. 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 He does not smoke. There is no history of illicit drug use. He has one or two alcoholic beverages per day. CURRENT MEDICATIONS 1. Prilosec p.r.n. 2. H2 lloyd p.r.n. 3. Atorvastatin. 4. Calcium/vitamin D. 5. Glucosamine/chondroitin. 6. [place]-3 fish oil. 7. Multivitamin. ALLERGIES AUGMENTIN. DISCUSSION 1. A total of 60 minutes was spent in counseling today, 100% of which was face to face. At today's chemotherapy teaching session, we discussed his diagnosis as well as the planned chemotherapy regimen and toxicities associated with oral tamoxifen 20 mg daily. Handouts of the drug were provided and reviewed in detail. 2. Side effects and toxicities of chemotherapy agents included, but were not limited to: A. Bone marrow suppression, specifically neutropenia. He is instructed to contact our offices with any signs of infection. CBC will be monitored routinely. We discussed common sense approaches including routine hand washing and avoidance of crowds/sick people if neutropenic. B. GI side effects. Discussed the possibility of nausea, vomiting, diarrhea, and constipation. He will receive IV antiemetics and will be prescribed antiemetics for home use. If he were to have diarrhea, recommended Imodium. If he were to have constipation, recommended Senna-S or MiraLAX routinely. Further interventions will be made based on side effects. C. side effects. Discussed the importance of adequate hydration (minimum 8 cups of fluid per day) and emptying the bladder on a regular basis. IV hydration can be scheduled as needed. D. Mouth sores. Recommended salt water or baking soda gargles as needed. E. Skin toxicity. Discussed that chemotherapy was very drying to the skin and mucous membranes. Recommended routine moisturizing as well as sun protection. F. Neurotoxicity. Discussed symptoms of peripheral neuropathy. He will be monitored for these symptoms and will notify us if progressive. G. Alopecia. We discussed that hair thinning can occur, and there are some data that alopecia can occur as well, though hair thinning is more likely. H. Fatigue. Discussed that this is one of the most common complaints of patients undergoing chemotherapy. I have encouraged him to remain as active as possible, taking frequent rests as needed. I. Reproductive health. Discussed importance of preventing while on chemotherapy. Discussed control options and fertility preservation, also to abstain from sexual intercourse for two to three days after chemotherapy administration. 3. I have instructed the patient to call our office if he is prescribed any new medications. It is recommended that multiple supplements or herbal medications may not be taken as these may interfere with the action of the chemotherapy. 4. Discussed dietary issues associated with chemotherapy including anorexia and changes in taste. A handout of nutrition information is given. 5. Office contact information ([phone]) is given. I have encouraged the patient to call with any issues regarding treatment. 6. A tour of the infusion room is given. He is given a packet of information including all of the above. 7. Tamoxifen: This was sent electronically to his pharmacy today, #30, times one refill. He will start this as soon as he receives this, but likely with start this tomorrow. 8. We discussed all pertinent and common side effects related to tamoxifen, to include vasomotor symptoms, arthralgias, myalgias, elevated LFTs or transaminitis, hot flashes, or vasomotor symptoms, as well as mood changes. Also discussed the low incidence, but risk of stroke, and in women, uterine fibroids. Also in women, endometrial cancer. MTDD
[2019-03-21 09:08] LABS: INR 1.01
--- NOTE | 2019-03-22 10:06 | RADIOLOGY IMAGING REPORT ---
FACILITY: [facility] - [place] PATIENT NAME: ORION FARNSWORTH : [id number] MR: [id number] V: [id number] EXAM DATE: [id number] ORDERING PHYSICIAN: ESTEBAN TUTTLE TECHNOLOGIST: April Pelletier RDMS PROCEDURE:BILATERAL DIAGNOSTIC DIGITAL MAMMOGRAM WITH CAD ASSISTED INTERPRETATION & 3D TOMOSYNTHESIS REASON FOR STUDY: Prior history Left breast ca with new palpable lump in the Left axilla FAMILY HISTORY OF BREAST CANCER: None BREAST PROCEDURES/TREATMENTS: Left mastectomy with chemotherapy & radiation therapy COMPARISON STUDIES: 01/30/18 MAMMOGRAM VIEWS OBTAINED: Right 2D full field Right CC & MLO views. Left 2D full field views in the Left XCC & Left MLO projections. Left axillary Ultrasound was also performed today. BREAST DENSITY: Scattered fibroglandular densities seen throughout the Right breast. There are surgical clips in the Left axilla from prior lymph node dissection. MAMMOGRAM FINDINGS: The parenchymal pattern throughout the Right breast has remained stable. There has been a Left mastectomy with surgical clips now seen in the Left axilla. A discrete mass is not demonstrated on today's mammographic views of the Left axilla. ULTRASOUND AREA SCANNED: Left axilla. ULTRASOUND FINDINGS: In the Left axilla in the location of the patient's palpable findings there is a noncircumscribed microlobulated parallel slightly complex mass although predominantly hypoechoic with faint acoustic shadowing. This mass measures 8 x 8.5 x 4.1cm & is wider than tall. Also noted in the Left axilla is a 6 x 3mm fatty replaced lymph node with a relatively benign morphology. IMPRESSION: DIAGNOSTIC CATEGORY 4--SUSPICIOUS FOR MALIGNANCY. BIRADS 4: Suspicious for malignancy. Ultrasound guided core biopsy of the microlobulated slightly complex mass in the Left axilla in the location of patient's palpable findings. Findings were discussed with the patient at the time of the examination. DIAGNOSTIC CATEGORY 4--SUSPICIOUS FOR MALIGNANCY. RECOMMENDATIONS: ULTRASOUND-GUIDED CORE BIOPSY: LEFT BREAST. Dictated by: Kate Figueroa M.D. on 03/20/2019 at 15:44 Transcribed by: JORI on 03/22/2019 at 9:46 [facility] Approved by: Kate Figueroa M.D. on 03/22/2019 at 10:06
--- NOTE | 2019-03-22 10:07 | RADIOLOGY IMAGING REPORT ---
FAC[place] [facility] [place]IENT NAME: ORION FARNSWORTH : [id number] MR: [id number] V: [id number] EXAM DATE: [id number] ORDERING PHYSICIAN: ESTEBAN TUTTLE TECHNOLOGIST: Xiao Borjas PROCEDURE:BILATERAL DIAGNOSTIC DIGITAL MAMMOGRAM WITH CAD ASSISTED INTERPRETATION & 3D TOMOSYNTHESIS REASON FOR STUDY: Prior history Left breast ca with new palpable lump in the Left axilla FAMILY HISTORY OF BREAST CANCER: None BREAST PROCEDURES/TREATMENTS: Left mastectomy with chemotherapy & radiation therapy COMPARISON STUDIES: 01/30/18 MAMMOGRAM VIEWS OBTAINED: Right 2D full field Right CC & MLO views. Left 2D full field views in the Left XCC & Left MLO projections. Left axillary Ultrasound was also performed today. BREAST DENSITY: Scattered fibroglandular densities seen throughout the Right breast. There are surgical clips in the Left axilla from prior lymph node dissection. MAMMOGRAM FINDINGS: The parenchymal pattern throughout the Right breast has remained stable. There has been a Left mastectomy with surgical clips now seen in the Left axilla. A discrete mass is not demonstrated on today's mammographic views of the Left axilla. ULTRASOUND AREA SCANNED: Left axilla. ULTRASOUND FINDINGS: In the Left axilla in the location of the patient's palpable findings there is a noncircumscribed microlobulated parallel slightly complex mass although predominantly hypoechoic with faint acoustic shadowing. This mass measures 8 x 8.5 x 4.1cm & is wider than tall. Also noted in the Left axilla is a 6 x 3mm fatty replaced lymph node with a relatively benign morphology. IMPRESSION: BIRADS 4: Suspicious for malignancy. Ultrasound guided core biopsy of the microlobulated slightly complex mass in the Left axilla in the location of patient's palpable findings. Findings were discussed with the patient at the time of the examination. DIAGNOSTIC CATEGORY 4--SUSPICIOUS FOR MALIGNANCY. RECOMMENDATIONS: ULTRASOUND-GUIDED CORE BIOPSY: LEFT BREAST. Dictated by: Kate Figueroa M.D. on 03/20/2019 at 15:44 Transcribed by: JORI on 03/22/2019 at 9:46 Approved by: Kate Figueroa M.D. on 03/22/2019 at 10:06 [facility]
--- NOTE | 2019-03-25 10:41 | RADIOLOGY IMAGING REPORT ---
FACILITY: [facility] - [place] PATIENT NAME: ORION FARNSWORTH : [id number] MR: [id number] V: [id number] EXAM DATE: ORDERING PHYSICIAN: ESTEBAN TUTTLE TECHNOLOGIST: Bharti Espinal RT(R)(CT) PROCEDURE: BIOPSY LEFT BREAST COMPARISON: None. INDICATIONS: Left axillary mass FINDINGS: Informed consent was obtained. The patient's Left axilla was prepped & draped in the usual sterile fashion. Local anesthesia was accomplished with 1% Lidocaine. Under direct & continuous sonographic guidance three 14 Gauge core biopsies were obtained through the hypoechoic mass in the Left axilla. A biopsy clip was placed in the biopsy site. The samples were placed in formalin, shown to the patient & sent to the Laboratory for evaluation. The procedure was accomplished without apparent complication. IMPRESSION: Successful sonographically guided Left axillary mass biopsy. Dictated by: Kate Figueroa M.D. on 03/22/2019 at 11:36 Transcribed by: JORI on 03/22/2019 at 14:21 Approved by: Kate Figueroa M.D. on 03/22/2019 at 14:36 [facility]
== END 2019-03-28 ==
LOC: ONC 12:58
PROVIDERS: ATTEND Internal Medicine Medical Oncology
DX: C50.922 Malignant neoplasm of unspecified site of left male breast (principal); Z17.0 Estrogen receptor positive status [ER+]; Z92.21 Personal history of antineoplastic chemotherapy; Z92.3 Personal history of irradiation
CPT/HCPCS: 19083; 36415; 36591; 76641; 77062; 77066; 84443; 85025; 85610; G0463; J1642; 82040; 82247; 82310; 82374; 82435; 82465; 82565; 82947; 83718; 84075; 84132; 84155; 84295; 84450; 84460; 84478; 84520; 96523; 99212

== ENCOUNTER 2019-03-21 11:15 | Outpatient (RCR) | payer MEDICARE, OTHER ==
--- NOTE | 2019-03-06 07:35 | PT INITIAL EVALUATION ---
MEDICAL DIAGNOSIS: Breast Cancer TREATMENT DIAGNOSIS: Breast Cancer DATE OF ONSET: 03/04/19 SUBJECTIVE: Fausto is a 68 year-old male presenting to physical therapy following development of tightness and scar tissue adhesions following treatment of L breast cancer. Pt had a L mastectomy on February 08, 2018, with few axillary lymph nodes excised and 6-8 tested. Pt then underwent chemotherapy followed by radiation therapy. Fausto previously participated in physical therapy for axillary cording and Achilles tendinopathy during treatment and achieved full ROM of the L shoulder. However, pt reports that recently the L shoulder seems stiffer and tight and that he feels like he has some knots in his incision that are causing pain. 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 The lateral aspect of the incision has minimal mobility. There is a palpable lump just lateral to the incision line that is adhered and firm. Sensation: Pt has neuropathy present in fingertips and feet. ASSESSMENT: Fausto presents with signs and symptoms consistent with axillary cording secondary to L breast cancer. Physical therapy is indicated to improve pt function with ADLs though improving mobility as impaired by the above listed deficits. It is my recommendation that this pt also follow up with his oncology [employer] or MD for assessment of the newer lateral lump for evaluation of possible recurrence. Short Term Goals In 2 weeks pt will improve L shoulder ROM to equal to that of the contralateral side. In 4 weeks pt will no longer have 3 adherence points on the lateral ribs with good scar tissue mobility. Patient's Goals Improve scar tissue mobility. PLAN: Patient to be seen for Manual Therapy/STM/MET Strengthening/condition Ice/Heat Range of Motion Spinal Stabilization Ultrasound Stretching Iontophoresis Posture/Body mechanics [facility]Manual Traction Therapeutic Activities 1x/Week for 4 Weeks If you have any questions, comments, or concerns about this report or plan, please contact me at . Thank you, Ladi Carrillo, PT, DPT, CLT MTDD
[~2019-03-21 11:15] MED LIST changes: -ALTEPLASE RECOMB 2 MG VIAL IVP PRN; -DEXTROSE 5%(*) 100 ML BAG 100 ML IVPB PRN; -NS(*) 0.9% 100 ML BAG 100 ML IVPB PRN; -NS(*) 0.9% 500 ML BAG 500 ML IV PRN; +TAMO20TA24 PO; -WATER FOR INJ,STERILE 20 ML IVP PRN
[2019-04-03] MEDS ORDERED: PROP40TA45 PO (13:48)
== END 2019-03-21 18:00 | disposition home or self-care (01) ==
LOC: PT 11:15
PROVIDERS: ATTEND Nurse Practitioner
DX: C50.922 Malignant neoplasm of unspecified site of left male breast (principal); Z90.12 Acquired absence of left breast and nipple; Z92.21 Personal history of antineoplastic chemotherapy; Z92.3 Personal history of irradiation
CPT/HCPCS: 88305; 88342; 88344; 97161

== ENCOUNTER 2019-04-10 00:17 | Day surgery (SDC) | payer MEDICARE, OTHER ==
[~2019-04-10] VITALS: Ht 182.9 cm; Wt 88.5 kg
[~2019-04-10 00:17] MED LIST changes: +PROP40TA45 PO
[2019-04-10] MEDS ORDERED: PROPOFOL EMUL(*) 10MG/ML 20 ML 20 ML ONE ×3 (07:04→08:50)
[2019-04-10 07:10] VITALS: BP 111/64
[2019-04-10] MEDS ORDERED: NORMOSOL R SOLN(*) 1000 ML BAG 1,000 ML IV PRN (07:30)
[2019-04-10] MEDS ORDERED: LIDO/EPI 1% MDV 1:100,000 20ML INFIL ONE (07:48)
[2019-04-10] MEDS ORDERED: LIDOCAINE/SOD BICARB 8.4% SYR ID ONE (08:00)
[2019-04-10] MEDS ORDERED: MIDAZOLAM 2 MG/2 ML VIAL IVP PRN (08:00)
[2019-04-10 09:12] VITALS: BP 82/54
--- NOTE | 2019-04-10 09:23 | Short(Outpt) Discharge Summary ---
Discharge Summary Reason for Hosp/Final Diag: (1) Colon cancer screening Status: Chronic Hospital Course & Plan: Colonoscopy with polypectomy x6 completed without problems. (2) Cancer of left male breast Status: Chronic Hospital Course & Plan: Right IJ power port removed without problems. Departure Discharge to: Home, Self Care Discharge Instructions Home Meds Active Scripts Tamoxifen Citrate (TAMOXIFEN CITRATE) 20 Mg Tablet, 20 MG PO QDAY for 30 Days, #30 MG 1 Refill take 1 tablet po Q Day Prov:JOSE ROGERS APRN, FNP 03/13/19 Docusate Sodium (DOCUSATE SODIUM) 100 Mg Capsule, 1 CAP PO BID, #30 CAPSULE 0 Refills Prov:BULL BURRIS MD 02/09/18 Reported Medications Propranolol Hcl (PROPRANOLOL HCL) 40 Mg Tablet, 20 MG PO BID 04/03/19 Omeprazole Magnesium (PRILOSEC OTC) 20 Mg Tablet.dr, 1 TAB PO QDAY, TAB 02/06/19 Aspirin (ASPIR 81) 81 Mg Tablet.dr, 81 MG PO QDAY, TAB 02/06/19 Duloxetine Hcl (CYMBALTA) 20 Mg Capcr, 20 MG PO QDAY, #5 CAP 08/22/18 Atorvastatin Calcium (LIPITOR) 10 Mg Tablet, 0.5 TAB PO QODAY, TAB 02/06/18 Calc/D3/Mag/Zn/Life Skills Coordinator/Christophe/[place] (CALCIUM 600 MG PLUS VIT D TAB) 1 Each Tablet, 1 EACH PO QDAY 02/06/18 Glucosam & Chondroit-Mv & Min3 (GLUCOTEN CAPLET) 1 Each Tablet, 1 EACH PO QDAY 02/06/18 Cholecalciferol (Vitamin D3) (VITAMIN D3) 1,000 Unit Tablet, 1000 UNIT PO QDAY, TAB 02/06/18 Multivitamin (MULTIVITAMINS) 1 Each Capsule, 1 EACH PO QDAY, CAPSULE 02/06/18 Discontinued Reported Medications Esomeprazole Magnesium (NEXIUM) 40 Mg Capsule.dr, 1 CAP PO QDAY, CAP 08/22/18 [place]-3/Dha/Epa/Fish Oil (Fish Oil 1,000 mg Softgel) 1,000 Mg (120 Mg-180 Mg) Capsule, 1 TAB PO QDAY 02/06/18 Diet: Regular Activity: As Tolerated Special Instructions: Your port was removed without any problems. You may remove the dressing on 04/12/19, then you can shower. After showering, leave the incision open to air but leave the steristrips in place until they fall off on their own. Do not immerse the incision for 2 weeks. Your colonoscopy was completed without any problems and your prep was excellent (Good Job!!). I removed 6 small polyps from your colon and they were sent to pathology. My office will call you in the next week or two to let you know what the polyps are and when your next colonoscopy should be (either 3 or 5 years) depending on how many of the polyps are precancerous polyps. Problem Qualifiers (1) Cancer of left male breast : Breast location: unspecified site of breast Estrogen receptor status: unspecified Qualified Codes: C50.922 - Malignant neoplasm of unspecified site of left male breast BULL BURRIS MD April 10, 2019 09:23
[2019-04-10 09:30] VITALS: BP 100/67
[2019-04-10 09:45] VITALS: BP 117/76
[2019-04-10 10:03] VITALS: BP 111/85
[2019-04-10 10:05] VITALS: BP 120/67
== END 2019-04-10 10:20 | disposition home or self-care (01) ==
LOC: OR 00:17
PROVIDERS: ATTEND Surgery
DX: Z12.11 Encounter for screening for malignant neoplasm of colon (principal); D12.5 Benign neoplasm of sigmoid colon; D12.3 Benign neoplasm of transverse colon; Z86.010 Personal history of colon polyps
CPT/HCPCS: 00811; 45385; 88305; J2704

== ENCOUNTER 2019-04-11 13:30 | Outpatient (RCR) | payer MEDICARE, OTHER ==
[2019-04-11 14:06] LABS: PLATELET COUNT, AUTOMATED 230 K/uL (150-450)
[2019-04-11 14:15] VITALS: BP 106/63
--- NOTE | 2019-04-18 11:45 | ONCOLOGY FOLLOW UP NOTE ---
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 INTERIM HISTORY Mr. Brown returns to clinic for a followup visit today. He is accompanied by his . Since our last visit, he has initiated adjuvant endocrine therapy with Tamoxifen. He reports that he is tolerating this quite well and has had minimal toxicity. Of note, he also had concern for a lump under the left arm, which was biopsied with pathology showing fat necrosis only and no evidence of malignancy. He has been doing quite well in terms of physical activity. In fact, he plans to run the [employer] soon. He reports no new pain. His appetite is good and his weight has been stable. He has had no changes in bowel or bladder habits. He reports no skin changes. He has been taking Cymbalta for peripheral neuropathy and he reports some lingering numbness that gets better and worse during the day, mostly in his feet. REVIEW OF SYSTEMS Otherwise negative and all systems reviewed. CURRENT MEDICATIONS 1. Prilosec p.r.n. 2. H2 lloyd p.r.n. 3. Atorvastatin. 4. Calcium/vitamin D. 5. Glucosamine/chondroitin. 6. [place]-3 fish oil. 7. Multivitamin. 8. Cymbalta. ALLERGIES AUGMENTIN. 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 He does not smoke. There is no history of illicit drug use. He has one or two alcoholic beverages per day. FAMILY HISTORY His mother was diagnosed with breast cancer at age 50 to 55. He has a younger brother as well as two sons and a daughter who are otherwise healthy. VITAL SIGNS Patient is afebrile. Blood pressure 106/63, heart rate 63, respirations 18, oxygen saturation is 97% on room air. Weight is 205.2 kg. PHYSICAL EXAMINATION GENERAL: The patient is alert and oriented x3, in no apparent distress, sitting in exam room chair. He appears healthy. He is interactive and pleasant. HEENT: Anicteric sclerae. NEUROLOGIC: Grossly nonfocal and his gait is normal. EXTREMITIES: No edema, clubbing or cyanosis. There is no erythema or tenderness to palpation. SKIN, CURSORY: No concerning rash or lesion. LABORATORY STUDIES Reviewed per the [facility] record. ASSESSMENT AND PLAN Stage IIB, ER-positive invasive ductal carcinoma of left breast. Fausto is doing remarkably well. He recently started adjuvant Tamoxifen and he is tolerating this without difficulty. He has no particularly concerning symptoms to suggest breast cancer recurrence. We spent time today reviewing the biopsy results from his axilla. There is no evidence of malignancy there. We discussed that the plan for him will be to continue with Tamoxifen for a total of five years, potentially more. We reviewed his recent colonoscopy findings with several polyps being removed but no evidence of malignancy. He understands the importance of regular physical activity and good nutrition. All questions answered today. I would like to follow up with him in three months or sooner if there are questions or concerns. ADDENDUM I called Fausto after our visit to discuss his ongoing use of Cymbalta and the potential for decreased effectiveness of the Tamoxifen as a result of the CYP Pathway. He will wean off the Cymbalta as he is not particularly sure that he needs it anyway He will keep me posted of what is going on with his mood as well as peripheral neuropathy. He does have other options to consider in this regard. JOSS
== END 2019-07-09 ==
LOC: SPU 13:30
PROVIDERS: ATTEND Internal Medicine Medical Oncology
DX: C50.922 Malignant neoplasm of unspecified site of left male breast (principal); Z17.0 Estrogen receptor positive status [ER+]; Z92.21 Personal history of antineoplastic chemotherapy; Z92.3 Personal history of irradiation; Z79.810 Long term (current) use of selective estrogen receptor modulators (SERMs)
CPT/HCPCS: 36415; 85025; G0463; 82040; 82247; 82310; 82374; 82435; 82565; 82947; 84075; 84132; 84155; 84295; 84450; 84460; 84520; 99212